=== PATIENT | male | born 1950 | race Caucasian/White ===

== ENCOUNTER 2019-10-09 09:16 | Emergency (ER) | payer MEDICARE, SELFPAY ==
[2019-10-09 09:21] VITALS: BP 144/95; PULSE 118; RESP 19; TEMP 37.2; O2SAT 97; BMI 33.5
--- NOTE | 2019-10-09 09:44 | EKG12_ITS ---
Test Reason : WEAKNESS Blood Pressure : / mmHG Vent. Rate : 108 BPM Atrial Rate : 108 BPM P-R Int : 174 ms QRS Dur : 096 ms QT Int : 332 ms P-R-T Axes : 052 040 053 degrees QTc Int : 444 ms Sinus tachycardia with Premature atrial complexes Otherwise normal ECG Confirmed by PRASHANTH JORGENSEN, PAULETTE ([id number]), auto mechanic MARÍA QUARLES ([id number]) on 10/11/2019 12:21:52 PM Referred By: AC Confirmed By:PAULETTE ALFORD MD
--- NOTE | 2019-10-09 09:45 | RAD_ITS ---
STUDY: X-RAY - RIGHT ANKLE REASON FOR EXAM: Male, 69 years old. FELL THIS AM. PAIN AND SWELLING TECHNIQUE: 3 view(s) of the ankle. COMPARISON: None. FINDINGS: There is bony osteopenia. There is degenerative change of the ankle. Normal medial and lateral malleoli. Normal tibiotalar articulation and ankle mortise. Normal visualized talus and calcaneus. The visualized subtalar, talonavicular, calcaneocuboid and tarsal articulations are normal. There are atherosclerotic calcifications. RAD/Ankle min 3 Views IMPRESSION: Degenerative change. No visualized acute fracture. No significant soft tissue edema. Electronically Signed: Orin Honeycutt MD at 10:53 EST Tel , Service support ,
[2019-10-09 09:56] LABS: Absolute Neutrophil Count 7.1 X10^3/uL (2.0-7.7); Basophil# 0.03 X10^3/uL; Basophil% 0.4 % (0-1); Hematocrit 39.3 % (40-54); Hemoglobin 13.2 g/dL (13.0-16.5); Lymphocyte % 2.5 % (19-41); Mean Corp Hgb Conc 33.6 g/dL (32-36); Mean Corpuscular Hgb 30.9 pg (27.0-32.0); Mean Platelet Vol. 10.7 fl (6.2-12.0); Monocyte# 0.47 X10^3/uL; NRBC Flagged by Analyzer 0 % (0-5); Neutrophil # 7.13 X10^3/uL (2.7-7.7); Neutrophil % 90.6 % (47-70); POSITIVE DIFFERENTIAL YES; POSITIVE MORPHOLOGY YES; Platelet Count 132 K/mm3 (150-450); RBC Distribution Width CV 12.3 % (11.6-14.6); RBC Distribution Width SD 41.1 fl (35.1-43.9); Red Blood Count 4.27 M/mm3 (4.6-6.2); White Blood Count 7.9 K/mm3 (4.4-11.0)
[2019-10-09 10:01] LABS: Differential Indicated SCAN CRITERIA MET
[2019-10-09 10:07] LABS: Anion Gap 7 (5-15); BUN 15 mg/dL (7-18); BUN/Creat Ratio 14.4 RATIO (10-20); CPK Total, Creatine Kinase 66 U/L (39-308); Calcium,Total 9.1 mg/dL (8.5-10.1); Chloride 99 mmol/L (98-107); Creatinine, Serum 1.04 mg/dL (0.70-1.30); EST Glomerular Filtration Rate 75 mL/min (>60); Est Glom Filt Rate - Afr Amer 90 mL/min (>60); Estimated Creatinine Clearance 63.03 ml/min; Glucose 101 mg/dL (74-106); Potassium 3.9 mmol/L (3.5-5.1); Sodium Level 133 mmol/L (136-145)
--- NOTE | 2019-10-09 10:27 | ED.VIS.GEN ---
History of Present Illness Chief Complaint: Weakness Informant: Patient, Family Narrative: Patient reports a recent history of increased weakness. He tried to get out of his chair last evening but was too weak, sliding off the edge of the chair onto the floor. He was calling for his but she was asleep and could not hear him. He laid on the floor all night. Lying at rest patient denies any pain. When trying to get up and move around he has slight pain to the right ankle. Patient does have a history of left rotator cuff tear and believes this is why he could not push himself up out of his chair. He also reports circulation problems in his legs with some weakness secondary to this. - Past Medical History (1) Bladder cancer Status: Resolved (2) Lung cancer Status: Acute (3) Rotator cuff tear Status: Chronic (4) Coronary artery disease Status: Chronic (5) COPD (chronic obstructive pulmonary disease) Status: Chronic Past Medical History - Allergies and Home Meds Allergies/Adverse Reactions: Allergies No Known Allergies Allergy (Verified 10/09/19 09:24) Primary Care Physician: Hasmukh Springer MD [Primary Care Provider] - Prior records reviewed: Yes Lives: Spouse/ Significant Other Smoking Status: Former smoker Review of Systems General: Denies: Chills, Fever Eyes: Denies: Visual changes - bilaterally ENT: Denies: Bilateral ear pain Cardiovascular: Denies: Chest pain, Palpitations Respiratory: Denies: Dyspnea, Cough Gastrointestinal: Denies: Abdominal pain, Nausea, Vomiting, Diarrhea Genitourinary: Denies: Dysuria Musculoskeletal: Reports: Extremity Pain Skin: Denies: Rash Neurological: Reports: Weakness - Generalized weakness. Denies: Headache Allergy: Denies: Uticaria Physical Exam Vital Signs/Narrative: Vital Signs Temp Pulse Resp BP Pulse Ox 10/09/19 09:21 99.0 F 118 H 19 H 144/95 H 97 Inital Vital Signs reviewed: Yes General: Well nourished, Well developed Head: Normocephalic ENT: Moist mucous membranes Neck: Supple Cardiovascular: Tachycardia Respiratory: No distress, CTA bilaterally Abdomen: Soft, Nontender Extremities: - - Mild tenderness to the right ankle. No obvious edema or deformity. Skin: - - Slight dark discoloration noted to the bilateral lower extremities secondary to his circulation problems. He does have palpable pulses distally. Neurological: Alert Psychological: Normal affect Diagnostic/Tx/Re-eval Impressions Ankle X-Ray 10/09/19 09:45 IMPRESSION: Degenerative change. No visualized acute fracture. No significant soft tissue edema. Electronically Signed: Orin Honeycutt MD at 10:53 EST Tel , Service support , 10/09/19 09:45 Ankle min 3 Views [RAD] Stat Laboratory Results 10/09/19 10/09/19 10/09/19 09:29 09:29 11:12 WBC 7.9 RBC 4.27 L Hgb 13.2 Hct 39.3 L MCV 92.0 MCH 30.9 MCHC 33.6 RDW Std Deviation 41.1 RDW Coeff of Ean 12.3 Plt Count 132 L MPV 10.7 Immature Gran % (Auto) 0.500 Neut % (Auto) 90.6 H Lymph % (Auto) 2.5 L [place] % (Auto) 6.0 Eos % (Auto) 0.0 Baso % (Auto) 0.4 Absolute Neuts (auto) 7.1 Absolute Lymphs (auto) 0.20 L Nucleated RBC % 0 Sodium 133 L Potassium 3.9 Chloride 99 Carbon Dioxide 27.0 Anion Gap 7 BUN 15 Creatinine 1.04 Estim Creat Clear Calc 63.03 Est GFR (MDRD) Af Amer 90 Est GFR (MDRD) Non-Af 75 BUN/Creatinine Ratio 14.4 Glucose 101 Calcium 9.1 Total Creatine Kinase 66 Urine Color Yellow Urine Clarity Sl. Cloudy Urine pH 7.0 Ur Specific [place] 1.010 Urine Protein Negative Urine Glucose (UA) Normal Urine Ketones Negative Urine Occult Blood 10 H Urine Nitrite Negative Urine Bilirubin Negative Urine Urobilinogen Normal Ur Leukocyte Esterase Negative Urine RBC 0 SEEN Urine WBC 5-10 SEEN Ur Squamous Epith Cells 0 SEEN Urine Bacteria 0 SEEN Urine Mucus 0 SEEN - EKG Initial EKG Interpretation: Sinus Tachycardia - Sinus tach at 108 with no acute ischemia. - Medical Decision Making Patient was given IV fluids here. There is no indication of renal failure or rhabdomyolysis. Test results are discussed with the patient. Patient does remain tachycardic but does now tell me that he normally takes Cardizem in the mornings and has not had his morning meds. He is given his normal 60 mg p.o. Cardizem. Patient is able to get up and ambulate with a walker. With ambulation he states he has pain between the knee and ankle. He states it feels like a sprain. Patient denies pain at rest and states he has had blood clots in his leg before and this does not feel anything like that. Oziel wrap will be applied to the knee and ankle. He does have a walker at home to use and feels comfortable with discharge. Patient return for worsening symptoms. ED Disposition - Plan for ED Patient: Disposition: Home or Assisted Living Diagnosis: Weakness, Ankle sprain Instructions: Sprain, Ankle, with X-Ray, WEAKNESS, Unk Cause Referrals: Hasmukh Springer MD [Primary Care Provider] - 3-5 Days if not improving
[2019-10-09 10:30] VITALS: BP 132/72; PULSE 113; RESP 18; O2SAT 97
[2019-10-09] MEDS: 0.9% Normal Saline 1,000 ML 150 ML IV (10:38)
[2019-10-09 11:17] LABS: Bacteria 0 SEEN /hpf (None Seen); Mucous, Urine 0 SEEN /hpf (<or=2+); Red Blood Cells-Urine 0 SEEN /hpf (0-5); Squamous Epithelial Cells - UA 0 SEEN /hpf (0-5)
[2019-10-09 11:22] LABS: Color, Urine Yellow (Yellow); Glucose, Dipstick Normal (Normal); Ketone-Dipstick Negative (Negative); Leukocyte Esterase-Dipstick Negative /ul (Negative); Nitrite-Dipstick Negative (Negative); Occult Blood-Urine 10 /ul (Negative); Protein-Dipstick Negative (Negative); Urine Bilirubin Dipstick Negative (Negative); Urine Clarity Sl. Cloudy (Clear); Urine Urobilinogen Normal (Normal)
[2019-10-09 11:28] LABS: White Blood Cells 5-10 SEEN /hpf (0-5)
[2019-10-09 11:36] VITALS: BP 132/80; PULSE 105; RESP 16; O2SAT 99
[2019-10-09 12:01] VITALS: BP 117/90; PULSE 115; RESP 17; O2SAT 98
[2019-10-09] MEDS: dilTIAZem 60 MG Tablet PO (12:02)
[2019-10-09 12:24] VITALS: BP 117/99; PULSE 110; RESP 18; O2SAT 98
== END 2019-10-09 12:25 | disposition home or self-care (01) ==
PROVIDERS: Emergency Provider Emergency Medicine; PCP Family Medicine
DX: R53.1 Weakness (principal); S93.401A Sprain of unspecified ligament of right ankle, initial encounter; W07.XXXA Fall from chair, initial encounter; Y93.9 Activity, unspecified; Y92.009 Unspecified place in unspecified non-institutional (private) residence as the place of occurrence of the external cause; Y99.9 Unspecified external cause status; I25.10 Atherosclerotic heart disease of native coronary artery without angina pectoris; I49.1 Atrial premature depolarization; J44.9 Chronic obstructive pulmonary disease, unspecified; M19.071 Primary osteoarthritis, right ankle and foot; Z85.118 Personal history of other malignant neoplasm of bronchus and lung; Z85.51 Personal history of malignant neoplasm of bladder; Z87.891 Personal history of nicotine dependence
CPT/HCPCS: 73610; 80048; 81001; 82550; 85025; 93005; 96360; 96361; 99285; J7030; A4216

== ENCOUNTER 2020-01-25 16:35 | Inpatient (IN) | payer MEDICARE, SELFPAY ==
[2020-01-25 16:53] VITALS: BP 132/68; PULSE 71; RESP 16; TEMP 36.2; O2SAT 100
[2020-01-25 17:10] VITALS: BMI 29.7
[2020-01-25 17:14] VITALS: BMI 29.8
[2020-01-25] MEDS: Senna/Docusate Sodium 1 Tablet 2 TABLET PO (18:35)
[2020-01-25] MEDS: Acetaminophen 500 MG Tablet 1000 MG PO (18:36)
[2020-01-25] MEDS: Magnesium Oxide 400 MG Tablet PO (18:36)
[2020-01-25 18:40] VITALS: O2SAT 97
--- NOTE | 2020-01-25 21:04 | HP.PCM_ITS ---
Problem List (1) Debility Status: Acute (2) Pancoast tumor of right lung Status: Acute (3) Pulmonary embolism Status: Acute (4) Deep vein thrombosis Status: Acute (5) Atrial fibrillation with rapid ventricular response Status: Acute (6) GERD (gastroesophageal reflux disease) Status: Chronic (7) Hyperlipidemia Status: Chronic (8) Peripheral arterial occlusive disease Status: Chronic (9) Alcohol abuse Status: Chronic (10) Tobacco abuse Status: Chronic (11) Leukopenia Status: Chronic (12) Hypertension Status: Chronic (13) Hyponatremia Status: Chronic (14) Supraventricular tachycardia Status: Chronic (15) Bladder cancer Status: Chronic (16) Coronary artery disease Status: Chronic (17) COPD (chronic obstructive pulmonary disease) Status: Chronic History of Present Illness Date of Admission: 01/25/20 Chief Complaint: Here for rehabilitation, strengthening, wound care, prior to discharge home with . The patient is a 69 year old Male with below past medical history with fo llowing: Chest X-ray showed 4.3CM right apical mass. CT, MRI chest showed apical tumor abutting T1, T2 regions. 09/21/2019 EBUs bronchoscopy confirmed adenocarcinoma right upper lung. Patient underwent induction chemotherapy, radiation therapy. Restaging CT scan showed right sided pulmonary embolism. 01/05/2020 IVC filter placed. 01/05/2020 Admit to [facility] [place] for lung cancer resection. 01/11/2020 Dr. 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 01/17/2020 Pleurodesis. 01/19/2020 Wound VAC applied due to dehiscence of right upper back right lateral chest incision. Pulmonary embolism/DVT treated with coumadin, Lovenox bridge. COPD treated with pulmonary toilet. Atrial fibrillation with rapid ventricular response converted with beta nayely, amiodarone. Infected cystic acne on back treated with Cefazolin IV x 4 days. Urinary retention resolved, Gurrola removed. 01/25/2020 Admit to TCU with debility, here for rehabilitation, strengthening, wound care, prior to discharge home with . Past Medical History Past Medical History (Chronic Problems): Chronic Problems Bladder cancer (Chronic) Rotator cuff tear (Chronic) Coronary artery disease (Chronic) COPD (chronic obstructive pulmonary disease) (Chronic) GERD (gastroesophageal reflux disease) (Chronic) Hyperlipidemia (Chronic) Peripheral arterial occlusive disease (Chronic) Alcohol abuse (Chronic) Tobacco abuse (Chronic) Leukopenia (Chronic) Hypertension (Chronic) Hyponatremia (Chronic) Supraventricular tachycardia (Chronic) Allergies No Known Allergies Allergy (Verified 10/09/19 09:24) Home Medications: Ambulatory Orders Medication Instructions Recorded Aspirin [Aspir 81] 162 mg PO DAILY 10/09/19 Cholecalciferol (Vitamin D3) 2,000 unit PO DAILY 10/09/19 [Vitamin D3] Cyanocobalamin [Vitamin B12] 500 mcg PO DAILY@0800 10/09/19 Diltiazem [Cardizem] 60 mg PO BID 10/09/19 Docusate Sodium [Colace] 200 mg PO BID 10/09/19 Fluticasone 110 Mcg [Flovent (SP)] 2 puff INHALATION BID 10/09/19 Folic Acid 0.4 mg PO DAILY@0800 10/09/19 Furosemide [Lasix] 20 mg PO DAILY 10/09/19 Omeprazole [Prilosec] 40 mg PO QODAY 10/09/19 Potassium 99 mg PO DAILY 10/09/19 Smz/Tmp Ds [Bactrim Ds] 1 tab PO DAILY 10/09/19 Tiotropium Irwin [Spiriva] 18 mcg IH DAILY 10/09/19 Surgical History: - - IVC filter, Studor pouch, Right thoracotomy. Psychiatric History: No pertinent psych hx Lives: Spouse/ Significant Other Smoking Status: Former smoker Tobacco Use: Non-smoker Alcohol: Sober Drugs: None - *Family History Maternal History Items: No pertinent history Paternal History Items: No pertinent history Review of Systems Constitutional: Denies: Chills, Fever, Weight Change HEENT: Denies: Head Aches, Sinus Congestion, Sinus Drainage Cardiovascular: Denies: Chest Pain, Palpitations Respiratory: Denies: Cough, Shortness of breath at rest, Sputum production Gastrointestinal: Denies: Abdominal Pain, Nausea, Vomiting Genitourinary: Denies: Dysuria Musculoskeletal: Denies: Joint Pain, Joint Tenderness Skin: Denies: Rash, Wounds Neurological: Denies: Numbness, Tingling, Focal weakness Psychiatric: Denies: Anxiety, Depression, Homicidal Ideations, Suicidal Ideations Hematologic/ Lymphatic: Denies: Easy Bruising, Easy Bleeding VTE Information - Inpt Only VTE Present on Admission: Yes VTE Mechan Device Prophylaxis: Knee High CELINE Hose VTE Pharm Prophylaxis ordered?: No Reason prophylaxis not ordered:: Treatment Not Indicated Patient Problems: Active and Suspected Problems Debility (Acute) Pancoast tumor of right lung (Acute) Pulmonary embolism (Acute) Deep vein thrombosis (Acute) Atrial fibrillation with rapid ventricular response (Acute) - Physical Exam Vitals/I&O's: Vital Signs Temp Pulse Resp BP Pulse Ox 97.1 F L 71 16 132/68 H 97 01/25/20 16:53 01/25/20 16:53 01/25/20 16:53 01/25/20 16:53 01/25/20 18:40 Oxygen Delivery Method Room Air Weight: 88.904 kg Body Mass Index (BMI) 29.7 Intake and Output for Last 24 Hours 01/23/20 01/24/20 01/25/20 23:59 23:59 23:59 Intake Total 120 / 120 Balance 120 / 120 General: Alert, Oriented x3, Cooperative HEENT: Atraumatic, PERRLA, EOMI, Normocephalic Neck: Supple, No JVD, Negative Carotid Bruits Lungs: Diminished - Right. Cardiovascular: Regular rate, No murmurs Abdomen: Bowel Sounds Present, Soft, Non Tender Extremities: No edema, Capillary Refill Less than 3 Seconds Skin: No rashes, - - Right upper back, right lateral chest wound VAC. Musculoskeletal: No Tenderness to Palpation of Joints or Extremities Neurological: Cranial nerves II-XII grossly intact Psych/Mental Status: Normal Affect, Appropriate Laboratory Results 01/25/20 18:35: COVID-19 (LEE ANN) Pending Current Medications Acetaminophen (Tylenol) 1,000 mg PO Q6H PRN PRN PRN Reason: Pain 1-1010 or Fever Last Admin: 01/25/20 18:36 Dose: 1,000 mg Documented by: Albuterol Sulfate (Ventolin Hfa (Sp)) 2 puff INHALATION Q4H PRN PRN PRN Reason: SOB &/OR WHEEZING Amiodarone HCl (Cordarone) 200 mg PO DAILY [facility] Aspirin (Ecotrin) 162 mg PO DAILY@0800 MARTIN Atorvastatin Calcium (Lipitor) 20 mg PO QHS [facility] Cholecalciferol (Vitamin D (25mcg)) 2,000 unit PO DAILY [facility]IN Cyanocobalamin (Vitamin B12) 500 mcg PO DAILY@0800 [facility] Diltiazem HCl (Cardizem) 60 mg PO BID [facility] Enoxaparin Sodium (Lovenox) 90 mg SC Q12@0600,1800 [facility] Fluticasone Propionate (Flovent Diskus 100 Mcg) 1 puff INHALATION BID [facility] Folic Acid (Folic Acid) 1 mg PO DAILY@0800 [facility] Furosemide (Lasix) 20 mg PO DAILY [facility] Lidocaine/Diphenhydr/Alum/Mg/Simeth () 5 ml PO Q4H PRN PRN PRN Reason: Pain Score 1-10/10 Magn[facility] ([facility]Ox 400) [facility] Last Admin: 01/25/20 18:36 Dose: 400 mg Documented by: Metoprolol Tartrate (Lopressor (Beta Nayely)) 37.5 mg PO Q8 [facility] Oxycodone HCl (Oxyir) 5 - 10 mg PO Q6H PRN PRN PRN Reason: Pain Score 6-10/10 Stop: 02/02/20 00:01 Pantoprazole Sodium (Protonix) 40 mg PO DAILY [facility] Senna/Docusate Sodium (Senokot-S, Anette-Colace) 2 tablet PO BID [facility] Last Admin: 01/25/20 18:35 Dose: 2 tablet Documented by: Thiamine HCl ([facility]itamin B1) [facility] Trimethoprim/Sulfamethoxazole (Bactrim Ds) 1 tablet PO DAILY@0800 [facility] Tuberculin PPD (Tubersol, Aplisol, Ppd) 5 tu ID [id number] ONE Stop: 01/26/20 10:01 Tuberculin PPD (Tubersol, Aplisol, Ppd) 5 tu ID [id number] ONE Stop: 02/02/20 10:01 Umeclidinium [place] (Incruse Ellipta Inhaler) 1 puff IH DAILY [facility] Assessment/Plan All Active Problems Lung cancer (Acute) Debility (Acute) Pancoast tumor of right lung (Acute) Pulmonary embolism (Acute) Deep vein thrombosis (Acute) Atrial fibrillation with rapid ventricular response (Acute) 69 year old male with below past medical history hospitalized for right apical pancoast tumor, underwent resection 01/11/2020, complicated by Pulmonary embolism/Deep Vein Thrombosis, atrial fibrillation with rapid ventricular response, infected cystic acne, admitted to TCU with debility, here for rehabilitation, strengthening, wound care, prior to discharge home with . * Debility - PT/OT. * Pain - Tylenol 1000MG Q6H PRN pain (1-3), Oxycodone 5MG Q4H PRN pain (4-10). * Bowel - Miralax 17GM daily, Senna/colace 2 tablets BID, Dulcolax 10MG daily PRN. Magnesium Citrate 300ML PO x 1 bottle for clean out. * Adult immunization - Administer Prevnar 13, Pneumovax 23, Fluzone as appropriate. * DVT prophylaxis - Not necessary, already anticoagulated. * COPD - Flovent 100MG 1 puff BID, Incruse 1 puff daily, Albuterol MDI 2 puffs Q4H PRN. * Atrial Fibrillation - Metoprolol 37.5MG Q8H, Diltiazem 60MG BID, Amiodarone 200MG daily, Lovenox/Warfarin. * Coronary Artery Disease - Metoprolol 37.5MG Q8H, Aspirin 162MG daily. * Hyperlipidemia - Atorvastatin 20MG QHS. * Sore throat - BMX 5ML Q4H PRN. * Vitamin D deficiency - D3 2000IU daily. * Vitamin B12 deficiency - B12 500MCG daily. * PE/DVT - Lovenox 90MG SC Q12H bridge, Warfarin 5MG daily, follow INR, stop Lovenox when INR therapeutic. * Alcohol abuse - Thiamine 100MG daily, Folic acid 1MG daily. * Edema - Lasix 20MG daily. * Hypomagnesemia - Magnesium Oxide 400MG BID. * GERD - Pantoprazole 40MG daily. * ID - Bactrim DS 1 tablet daily.
[2020-01-25] MEDS: Enoxaparin 100 MG/ML Syringe 90 MG SC (21:09)
[2020-01-25 21:10] VITALS: BP 125/66; PULSE 83
[2020-01-25] MEDS: Metoprolol Tartrate 25 MG Tablet 37.5 MG PO (21:10)
[2020-01-25] MEDS: Atorvastatin Calcium 20 MG Tablet PO (21:10)
[2020-01-26 05:51] LABS: Absolute Lymphocyte Count 0.47 X10^3/uL (0.83-4.51); Absolute Neutrophil Count 3.7 X10^3/uL (2.0-7.7); Basophil# 0.05 X10^3/uL; Eosinophil# 0.44 X10^3/uL; Eosinophils% 8.6 % (0-5); Hematocrit 28.5 % (40-54); Lymphocyte # 0.47 X10^3/ul (4.0); Lymphocyte % 9.2 % (19-41); Mean Corp Hgb Conc 31.6 g/dL (32-36); Mean Corpuscular Hgb 30.9 pg (27.0-32.0); Mean Corpuscular Volume 97.9 fL (80-94); Mean Platelet Vol. 10.4 fl (6.2-12.0); Monocyte% 7.8 % (0-10); NRBC Flagged by Analyzer 0 % (0-5); Neutrophil # 3.68 X10^3/uL (2.7-7.7); Neutrophil % 71.8 % (47-70); POSITIVE DIFFERENTIAL YES; Platelet Count 198 K/mm3 (150-450); RBC Distribution Width CV 15.7 % (11.6-14.6); RBC Distribution Width SD 55.8 fl (35.1-43.9); Red Blood Count 2.91 M/mm3 (4.6-6.2); White Blood Count 5.1 K/mm3 (4.4-11.0)
[2020-01-26 05:55] LABS: Differential Indicated SCAN CRITERIA MET
[2020-01-26 06:05] LABS: Anion Gap 8 (5-15); BUN 34 mg/dL (7-18); BUN/Creat Ratio 32.4 RATIO (10-20); Calcium,Total 8.2 mg/dL (8.5-10.1); Chloride 106 mmol/L (98-107); Creatinine, Serum 1.05 mg/dL (0.70-1.30); EST Glomerular Filtration Rate 74 mL/min (>60); Est Glom Filt Rate - Afr Amer 89 mL/min (>60); Estimated Creatinine Clearance 62.43 ml/min; Glucose 95 mg/dL (74-106); Potassium 3.9 mmol/L (3.5-5.1); Sodium Level 140 mmol/L (136-145)
[2020-01-26 06:42] VITALS: BP 129/61; PULSE 97; RESP 18; TEMP 36.8; O2SAT 95
[2020-01-26] MEDS: dilTIAZem 60 MG Tablet PO ×2 (06:46→18:27)
[2020-01-26] MEDS: Amiodarone 200 MG Tablet PO (06:46)
[2020-01-26 06:47] VITALS: BP 129/61; PULSE 97
[2020-01-26] MEDS: Senna/Docusate Sodium 1 Tablet 2 TABLET PO ×2 (06:47→18:27)
[2020-01-26] MEDS: Pantoprazole Sodium 40 MG Tablet PO (06:47)
[2020-01-26] MEDS: Metoprolol Tartrate 25 MG Tablet 37.5 MG PO ×3 (06:47→21:10)
[2020-01-26] MEDS: Furosemide 20 MG Tablet PO (06:48)
[2020-01-26] MEDS: Enoxaparin 100 MG/ML Syringe 90 MG SC ×2 (06:49→18:28)
[2020-01-26] MEDS: Magnesium Citrate 300 ML PO (06:50)
[2020-01-26] MEDS: Umeclidinium Bromide Inhaler 1 PUFF IH (07:00)
[2020-01-26] MEDS: Nystatin Powder 15gm Bottle 1 APPLIC TOPICAL ×2 (07:01→21:13)
[2020-01-26] MEDS: Thiamine Hydrochloride 100 MG Tablet PO (08:41)
[2020-01-26] MEDS: Smz/Tmp Ds Tablet 1 TABLET PO (08:41)
[2020-01-26] MEDS: Aspirin E.C. 81 MG Tablet 162 MG PO (08:41)
[2020-01-26] MEDS: Magnesium Oxide 400 MG Tablet PO ×2 (08:41→18:27)
[2020-01-26] MEDS: Cyanocobalamin 500 MCG Tablet PO (08:42)
[2020-01-26] MEDS: Folic Acid 1 MG Tablet PO (08:42)
[2020-01-26] MEDS: Tuberculin,Purif.prot.deriv. 50 TU/ML Vial 5 ML ID (10:57)
--- NOTE | 2020-01-26 11:59 | CASEMGMT ---
Addendum entered by Fiordaliza Bernal 01/26/20 12:11: Met with patient for initial assessment. Explained Palliative care due to qualifying dx. Pt agreeable to referral. Referral made to [facility]. Original Note: Social Work Discussed code status with pt. Pt chose full code. MOLST form completed and placed in chart. Fiordaliza Bernal, STENOGRAPHIC COURT REPORTER MOLD PRESS OPERATOR
[2020-01-26 13:52] VITALS: BP 129/61; PULSE 97
--- NOTE | 2020-01-26 13:59 | PHA.CONS_ITS ---
<Jennifer Cardoza - Last Filed: 01/26/20 13:59> Progress Note - Pharmacy Subjective: TCU Admission Objective: Allergies No Known Allergies Allergy (Verified 10/09/19 09:24) Current Medications Generic Name Dose Route Start Last Admin Trade Name Freq PRN Reason Stop Dose Admin Acetaminophen 1,000 mg 01/25/20 17:08 01/25/20 18:36 Tylenol PO 1,000 mg Q6H PRN PRN Administration Pain Score 1-3/10 Albuterol Sulfate 2 puff 01/25/20 17:13 Ventolin Hfa (Sp) INHALATION Q4H PRN PRN SOB &/OR WHEEZING Amiodarone HCl 200 mg 01/26/20 06:00 01/26/20 06:46 Cordarone PO 200 mg DAILY MARTIN Administration Aspirin 162 mg 01/26/20 08:00 01/26/20 08:41 Ecotrin PO 162 mg DAILY@0800 MARTIN Administration Atorvastatin Calcium 20 mg 01/25/20 22:00 01/25/20 21:10 Lipitor PO 20 mg QHS MARTIN Administration Bisacodyl 10 mg 01/25/20 21:34 Dulcolax PO DAILY PRN Constipation Cholecalciferol 2,000 unit 01/26/20 06:00 01/26/20 06:48 Vitamin D (25mcg) PO 2,000 unit DAILY MARTIN Administration Cyanocobalamin 500 mcg 01/26/20 08:00 01/26/20 08:42 Vitamin B12 PO 500 mcg DAILY@0800 MARTIN Administration Diltiazem HCl 60 mg 01/26/20 06:00 01/26/20 06:46 Cardizem PO 60 mg BID MARTIN Administration Enoxaparin Sodium 90 mg 01/25/20 18:00 01/26/20 06:49 Lovenox SC 90 mg Q12@0600,1800 MARTIN Administration Fluticasone Propionate 1 puff 01/26/20 06:00 01/26/20 06:46 Flovent Diskus 100 Mcg INHALATION 1 puff BID MARTIN Administration Folic Acid 1 mg 01/26/20 08:00 01/26/20 08:42 Folic Acid PO 1 mg DAILY@0800 MARTIN Administration Furosemide 20 mg 01/26/20 06:00 01/26/20 06:48 Lasix PO 20 mg DAILY MARTIN Administration Lidocaine/Diphenhydr/Alum/Mg/Simeth 5 ml 05/12/20 19:00 PO Q4H PRN PRN Pain Score 1-10/10 Magnesium Oxide 400 mg 01/26/20 08:00 01/26/20 08:41 [facility] Administration Metoprolol Tartrate 37.5 mg 01/25/20 22:00 01/26/20 13:52 Lopressor (Beta Nayely) PO 37.5 mg Q8 ON LICENSE OF [facility] Administration Multi-Ingredient Cream 1 applic 01/26/20 22:00 Eucerin TOPICAL HS ON LICENSE OF [facility] Protocol Nutritional Formula 1 packet 01/26/20 17:00 [place]av[place] - [place] Fl[facility] Nystatin 1 applic 01/26/20 06:00 01/26/20 07:01 Mycostatin Powder TOPICAL 1 applicatio 0600,2200 ON LICENSE OF [facility] Administration Protocol Oxycodone HCl 5 mg 01/25/20 21:45 Oxyir PO Q4H PRN PRN Pain Score 4-10/10 Pantoprazole Sodium 40 mg 01/26/20 06:00 01/26/20 06:47 Protonix PO 40 mg DAILY ON LICENSE OF [facility] Administration Polyethylene Glycol 17 gm 01/26/20 06:00 01/26/20 07:01 Miralax PO Not Given DAILY ON LICENSE OF [facility] Polysaccharide Iron Complex 150 mg 01/27/20 08:00 Ferrex 150 [facility] Senna/Docusate Sodium 2 tablet 01/25/20 18:00 01/26/20 06:47 Senokot-S, Anette-Colace PO 2 tablet BID ON LICENSE OF [facility] Administration Thiamine HCl 100 mg 01/26/20 08:00 01/26/20 08:41 [facility] Administration Trimethoprim/Sulfamethoxazole 1 tablet 01/26/20 08:00 01/26/20 08:41 Bactrim Ds PO 1 tablet DAILY@0800 ON LICENSE OF [facility] Administration Tuberculin PPD 5 tu 02/02/20 10:00 Tubersol, Aplisol, Ppd ID 02/02/20 10:01 X1 ONE Umeclidinium [place] 1 puff 01/26/20 06:00 01/26/20 07:00 Incruse Ellipta Inhaler IH 1 puff DAILY ON LICENSE OF [facility] Administration Problem List Debility (Acute) Pancoast tumor of right lung (Acute) Pulmonary embolism (Acute) Deep vein thrombosis (Acute) Atrial fibrillation with rapid ventricular response (Acute) GERD (gastroesophageal reflux disease) (Chronic) Hyperlipidemia (Chronic) Peripheral arterial occlusive disease (Chronic) Alcohol abuse (Chronic) Tobacco abuse (Chronic) Leukopenia (Chronic) Hypertension (Chronic) Hyponatremia (Chronic) Supraventricular tachycardia (Chronic) Vital Signs Temp Pulse Resp BP Pulse Ox 98.2 F 97 18 129/61 H 95 01/26/20 06:42 01/26/20 13:52 01/26/20 06:42 01/26/20 13:52 01/26/20 06:42 Oxygen Delivery Method Room Air Weight: 88.904 kg Body Mass Index (BMI) 29.7 Sodium 140 mmol/L (136-145) 01/26/20 05:35 Potassium 3.9 mmol/L (3.5-5.1) 01/26/20 05:35 Chloride 106 mmol/L (98-107) 01/26/20 05:35 Carbon Dioxide 26.0 mmol/L (21.0-32.0) 01/26/20 05:35 Anion Gap 8 (5-15) 01/26/20 05:35 BUN 34 mg/dL (7-18) H 01/26/20 05:35 Creatinine 1.05 mg/dL (0.70-1.30) 01/26/20 05:35 Est GFR (MDRD) Af Amer 89 mL/min (>60) 01/26/20 05:35 Est GFR (MDRD) Non-Af 74 mL/min (>60) 01/26/20 05:35 BUN/Creatinine Ratio 32.4 RATIO (10-20) H 01/26/20 05:35 Glucose 95 mg/dL (74-106) 01/26/20 05:35 Assessment/Plan: 1. Pain: acetaminophen 1000mg PO Q6H PRN pain 1-3/10 and oxycodone 5mg PO Q4H PRN pain 4-10/10. Please continue to monitor for increased pain and PRN usage. 2. COPD: albuterol inhaler 2 inhalations Q4H PRN SOB/Wheezing, fluticasone diskus 100mcg 1 inhalation BID, umeclidinium inhaler 1 inhalation daily. Please rinse mouth with water and spit out after use of fluticasone inhaler to prevent thrush. Please continue to monitor for SOB and/or wheezing. *3. Atrial fibrillation/PE/DVT/CAD: metoprolol tartrate 37.5mg PO Q8H, diltiazem 60mg PO BID, amiodarone 200mg PO daily, enoxaparin 90mg SC Q12H, aspirin 162mg PO DAILYCM. Please continue to monitor BP, HR, electrolytes, S/S of bleeding, and platelets. Warfarin is not ordered yet to begin bridge with enoxaparin described in physician note. Please consider ordering warfarin to begin bridge if clinically appropriate. Thanks. *4. Hyperlipidemia: atorvastatin 20mg PO QHS. No lipid panel in patient's chart. Please consider ordering a lipid panel now and then annually as clinically appropriate. Please continue to monitor for muscle pain. 5. Alcohol abuse: thiamine 100mg PO DAILYCM and folic acid 1mg PO DAILYCM. Please continue to monitor. 6. Edema: furosemide 20mg PO daily. Please continue to monitor electrolytes, renal function and edema. 7. GERD: pantoprazole 40mg PO daily. Please continue to monitor for S/S of GERD. 8. ID: sulfamethoxazole/trimethoprim DS 1T PO DAILYCM. Please continue to monitor renal function, potassium, S/S of infection and rash. 9. Sore throat: BMX solution 5mL PO Q4H PRN pain -06/24. Please continue to monitor for sore throat. 10. Anemia (hemoglobin 9.0): Ferrex 150mg PO DAILYCM. Please continue to monitor hemoglobin and for dark stools. *11. Vitamin/electrolyte deficiencies: cholecalciferol 2000units PO daily, cyanocobalamin 500mcg PO DAILYCM and magnesium oxide 400mg PO BIDCM. Patient does not have levels in the chart. Please consider ordering a Vitamin D level, a Vitamin B12 level and a magnesium level now and then annually as clinically appropriate. Thanks. Psychotropic Medications: None Unnecessary Medications: None Bowel Regimen: Miralax 17gm PO daily, senna/docusate 2T PO BID, bisacodyl 10mg PO daily PRN constipation. Please continue to monitor for constipation and PRN usage. Date of Note:: 01/26/20 - Provider Comments Provider responsibility: Provider responsible to enter orders to implement recommendations <Hernan Estrella Chi - Last Filed: 01/26/20 17:11> Progress Note - Pharmacy Subjective: [] Objective: Allergies No Known Allergies Allergy (Verified 10/09/19 09:24) Current Medications Generic Name Dose Route Start Last Admin Trade Name Freq PRN Reason Stop Dose Admin Acetaminophen 1,000 mg 01/25/20 17:08 01/25/20 18:36 Tylenol PO 1,000 mg Q6H PRN PRN Administration Pain Score 1-3/10 Albuterol Sulfate 2 puff 01/25/20 17:13 Ventolin Hfa (Sp) INHALATION Q4H PRN PRN SOB &/OR WHEEZING Amiodarone HCl 200 mg 01/26/20 06:00 01/26/20 06:46 Cordarone PO 200 mg DAILY MARTIN Administration Aspirin 162 mg 01/26/20 08:00 01/26/20 08:41 Ecotrin PO 162 mg DAILY@0800 ON LICENSE OF [facility] Administration Atorvastatin Calcium 20 mg 01/25/20 22:00 01/25/20 21:10 Lipitor PO 20 mg QHS MARTIN Administration Bisacodyl 10 mg 01/25/20 21:34 Dulcolax PO DAILY PRN Constipation Cholecalciferol 2,000 unit 01/26/20 06:00 01/26/20 06:48 Vitamin D (25mcg) PO 2,000 unit DAILY ON LICENSE OF [facility] Administration Cyanocobalamin 500 mcg 01/26/20 08:00 01/26/20 08:42 Vitamin B12 PO 500 mcg DAILY@0800 ON LICENSE OF [facility] Administration Diltiazem HCl 60 mg 01/26/20 06:00 01/26/20 06:46 Cardizem PO 60 mg BID MARTIN Administration Enoxaparin Sodium 90 mg 01/25/20 18:00 01/26/20 06:49 Lovenox SC 90 mg Q12@0600,1800 ON LICENSE OF [facility] Administration Fluticasone Propionate 1 puff 01/26/20 06:00 01/26/20 06:46 Flovent Diskus 100 Mcg INHALATION 1 puff BID MARTIN Administration Folic Acid 1 mg 01/26/20 08:00 01/26/20 08:42 Folic Acid PO 1 mg DAILY@0800 MARTIN Administration Furosemide 20 mg 01/26/20 06:00 01/26/20 06:48 Lasix PO 20 mg DAILY MARTIN Administration Lidocaine/Diphenhydr/Alum/Mg/Simeth 5 ml 01/25/20 19:00 PO Q4H PRN PRN Pain Score 1-10/10 Magnesium Oxide 400 mg 01/26/20 08:00 01/26/20 08:41 Mag-Ox 400 PO 400 mg BIDCM ON LICENSE OF [facility] Administration Metoprolol Tartrate 37.5 mg 01/25/20 22:00 01/26/20 13:52 Lopressor (Beta Nayely) PO 37.5 mg Q8 ON LICENSE OF [facility] Administration Multi-Ingredient Cream 1 applic 01/26/20 22:00 Eucerin TOPICAL HS ON LICENSE OF [facility] Protocol Nutritional Formula 1 packet 01/26/20 17:00 Donavon - [place] Flavor PO BIDCM ON LICENSE OF [facility] Nystatin 1 applic 01/26/20 06:00 01/26/20 07:01 Mycostatin Powder TOPICAL 1 applicatio 0600,2200 ON LICENSE OF [facility] Administration Protocol Oxycodone HCl 5 mg 01/25/20 21:45 Oxyir PO Q4H PRN PRN Pain Score 4-10/10 Pantoprazole Sodium 40 mg 01/26/20 06:00 01/26/20 06:47 Protonix PO 40 mg DAILY ON LICENSE OF [facility] Administration Polyethylene Glycol 17 gm 01/26/20 06:00 01/26/20 07:01 Miralax PO Not Given DAILY ON LICENSE OF [facility] Polysaccharide Iron Complex 150 mg 01/27/20 08:00 [facility]rex [facility] Senna/Docusate Sodium 2 tablet 01/25/20 18:00 01/26/20 06:47 Senokot-S, Anette-Colace PO 2 tablet BID ON LICENSE OF [facility] Administration Thiamine HCl 100 mg 01/26/20 08:00 01/26/20 08:41 Vitamin B1 [facility] Administration Trimethoprim/Sulfamethoxazole 1 tablet 01/26/20 08:00 01/26/20 08:41 Bactrim Ds PO 1 tablet DAILY@0800 ON LICENSE OF [facility] Administration Tuberculin PPD 5 tu 02/02/20 10:00 Tubersol, Aplisol, Ppd ID 02/02/20 10:01 X1 ONE Umeclidinium [place] 1 puff 01/26/20 06:00 01/26/20 07:00 Incruse Ellipta Inhaler IH 1 puff DAILY ON LICENSE OF [facility] Administration Problem List Debility (Acute) Pancoast tumor of right lung (Acute) Pulmonary embolism (Acute) Deep vein thrombosis (Acute) Atrial fibrillation with rapid ventricular response (Acute) GERD (gastroesophageal reflux disease) (Chronic) Hyperlipidemia (Chronic) Peripheral arterial occlusive disease (Chronic) Alcohol abuse (Chronic) Tobacco abuse (Chronic) Leukopenia (Chronic) Hypertension (Chronic) Hyponatremia (Chronic) Supraventricular tachycardia (Chronic) Vital Signs Temp Pulse Resp BP Pulse Ox 97.5 F L 83 16 99/54 L 95 01/26/20 14:09 01/26/20 14:09 01/26/20 14:09 01/26/20 14:09 01/26/20 14:09 Oxygen Delivery Method Room Air Weight: 88.904 kg Body Mass Index (BMI) 29.7 Sodium 140 mmol/L (136-145) 01/26/20 05:35 Potassium 3.9 mmol/L (3.5-5.1) 01/26/20 05:35 Chloride 106 mmol/L (98-107) 01/26/20 05:35 Carbon Dioxide 26.0 mmol/L (21.0-32.0) 01/26/20 05:35 Anion Gap 8 (5-15) 01/26/20 05:35 BUN 34 mg/dL (7-18) H 01/26/20 05:35 Creatinine 1.05 mg/dL (0.70-1.30) 01/26/20 05:35 Est GFR (MDRD) Af Amer 89 mL/min (>60) 01/26/20 05:35 Est GFR (MDRD) Non-Af 74 mL/min (>60) 01/26/20 05:35 BUN/Creatinine Ratio 32.4 RATIO (10-20) H 01/26/20 05:35 Glucose 95 mg/dL (74-106) 01/26/20 05:35 Assessment/Plan: Psychotropic Medications: Unnecessary Medications: Bowel Regimen: - Provider Comments Provider responsibility: Provider responsible to enter orders to implement recommendations Provider Comments to Recommendations by Pharmacy: Agree
[2020-01-26 14:09] VITALS: BP 99/54; PULSE 83; RESP 16; TEMP 36.4; O2SAT 95
--- NOTE | 2020-01-26 17:01 | CHAPLAIN ---
Type of Pastoral Visit _x__ Initial Visit ___ Follow-up Visit ___ On-call Visit ___ General Patient Visit ___ Spiritual Assessment ___ Family Conference ___ Bereavement ___ Rapid Response ___ Code Blue ___ Other (describe below) Pastoral Care Referral From _x__ Patient ___ Family ___ Nurse ___ Physician ___ Inside Sales Specialist ___ Olive Picker ___ Other (describe below) Sacrament/Intervention _x__ Active listening ___ Anointing ___ Lutheran ___ Bereavement ___ Communion ___ Heather exploration ___ _x__ Life review _x__ Prayer ___ Reconciliation ___ Sacrament of Sick _x__ Supportive presence ___ Wedding ___ Other (describe below) Pastoral Comments patient is open to further visits with this bellstaff
[2020-01-26 20:30] VITALS: O2SAT 98
[2020-01-26] MEDS: Atorvastatin Calcium 20 MG Tablet PO (21:09)
[2020-01-26 21:10] VITALS: BP 110/56; PULSE 86
[2020-01-27] MEDS: oxyCODONE 5 MG Tablet PO (03:14)
[2020-01-27] MEDS: Umeclidinium Bromide Inhaler 1 PUFF IH (04:52)
[2020-01-27 04:53] VITALS: BP 116/60; PULSE 89
[2020-01-27] MEDS: Pantoprazole Sodium 40 MG Tablet PO (04:53)
[2020-01-27] MEDS: Senna/Docusate Sodium 1 Tablet 2 TABLET PO ×2 (04:53→17:21)
[2020-01-27] MEDS: Polyethylene Glycol 3350 17 GM PACKET PO (04:53)
[2020-01-27] MEDS: Enoxaparin 100 MG/ML Syringe 90 MG SC ×2 (04:53→17:21)
[2020-01-27] MEDS: Metoprolol Tartrate 25 MG Tablet 37.5 MG PO ×3 (04:53→22:18)
[2020-01-27] MEDS: dilTIAZem 60 MG Tablet PO ×2 (04:54→17:21)
[2020-01-27] MEDS: Amiodarone 200 MG Tablet PO (04:54)
[2020-01-27] MEDS: Furosemide 20 MG Tablet PO (04:54)
[2020-01-27] MEDS: Nystatin Powder 15gm Bottle 1 APPLIC TOPICAL ×2 (04:58→22:21)
[2020-01-27 04:59] VITALS: RESP 19; TEMP 36.6; O2SAT 97
[2020-01-27 06:04] LABS: Absolute Lymphocyte Count 0.44 X10^3/uL (0.83-4.51); Absolute Neutrophil Count 5.4 X10^3/uL (2.0-7.7); Basophil# 0.04 X10^3/uL; Basophil% 0.6 % (0-1); Eosinophil# 0.15 X10^3/uL; Eosinophils% 2.2 % (0-5); Hematocrit 27.1 % (40-54); Hemoglobin 8.4 g/dL (13.0-16.5); Lymphocyte # 0.44 X10^3/ul (4.0); Lymphocyte % 6.6 % (19-41); Mean Corpuscular Hgb 30.5 pg (27.0-32.0); Mean Corpuscular Volume 98.5 fL (80-94); Mean Platelet Vol. 10.4 fl (6.2-12.0); Monocyte# 0.67 X10^3/uL; NRBC Flagged by Analyzer 0 % (0-5); Neutrophil # 5.35 X10^3/uL (2.7-7.7); Neutrophil % 79.9 % (47-70); POSITIVE DIFFERENTIAL YES; Platelet Count 197 K/mm3 (150-450); RBC Distribution Width SD 57.7 fl (35.1-43.9); Red Blood Count 2.75 M/mm3 (4.6-6.2); White Blood Count 6.7 K/mm3 (4.4-11.0)
[2020-01-27 06:10] LABS: Differential Indicated SCAN CRITERIA MET
[2020-01-27 06:29] LABS: Anion Gap 7 (5-15); BUN 35 mg/dL (7-18); BUN/Creat Ratio 33.3 RATIO (10-20); Calcium,Total 8.3 mg/dL (8.5-10.1); Chloride 106 mmol/L (98-107); Creatinine, Serum 1.05 mg/dL (0.70-1.30); EST Glomerular Filtration Rate 74 mL/min (>60); Est Glom Filt Rate - Afr Amer 89 mL/min (>60); Estimated Creatinine Clearance 62.43 ml/min; Glucose 97 mg/dL (74-106); Potassium 3.8 mmol/L (3.5-5.1); Sodium Level 139 mmol/L (136-145)
[2020-01-27 07:10] LABS: Anisocytosis RARE; Atypical Lymphocyte RARE %; Differential Comment SCANNED
[2020-01-27 07:11] LABS: Stomatocyte RARE
[2020-01-27] MEDS: Thiamine Hydrochloride 100 MG Tablet PO (08:18)
[2020-01-27] MEDS: Magnesium Oxide 400 MG Tablet PO ×2 (08:18→17:20)
[2020-01-27] MEDS: Iron Polysaccharide Complex 150 MG CAPSULE PO (08:18)
[2020-01-27] MEDS: Cyanocobalamin 500 MCG Tablet PO (08:18)
[2020-01-27] MEDS: Aspirin E.C. 81 MG Tablet 162 MG PO (08:19)
[2020-01-27] MEDS: Smz/Tmp Ds Tablet 1 TABLET PO (08:19)
[2020-01-27] MEDS: Folic Acid 1 MG Tablet PO (08:19)
--- NOTE | 2020-01-27 11:17 | NURSING ---
Spoke with patient's daughter, she stated his appointment was changed to 02/02/20
--- NOTE | 2020-01-27 11:30 | NURSING ---
Spoke with patient's spouse, she stated that she is going to contact Dr. Chino to reschedule his appointment for tomorrow. Also provided daily updated on patient.
--- NOTE | 2020-01-27 13:44 | NURSING ---
called to say the appointment with Dr. Chino is scheduled for 02/01
[2020-01-27 14:32] VITALS: PULSE 92
[2020-01-27] MEDS: Acetaminophen 500 MG Tablet 1000 MG PO (14:35)
[2020-01-27 15:36] VITALS: BP 105/50; PULSE 82; RESP 17; TEMP 37.1; O2SAT 97
--- NOTE | 2020-01-27 17:12 | NURSING ---
Unable to get seal on Prevena wound vac. Called technical support and they said it is not a broken maching. I tried reinforcing dressing, checking tubing and cannister. Wound vac dressing removed at this time and ABD's in place to cover incision and tristan. Minimal drainage noted to wound vac dressing and no active draiange noted. Will consult wound RN tomorrow as I could not reach her today.
--- NOTE | 2020-01-27 17:56 | RAD_ITS ---
STUDY: X-RAY CHEST REASON FOR EXAM: Male, 69 years old. Shortness of breath. History of right upper lobectomy with tumor resection. TECHNIQUE: PA and lateral views of the chest. COMPARISON: None. FINDINGS: There is air in the soft tissues of the right neck. There are surgical clips extending from the right neck along the posterior chest of the lateral chest wall. There is hypoexpansion of the right lung with elevated hemidiaphragm consistent with partial lobectomy. There is atelectatic changes at the right lung base. No pneumothorax The left lung is hyperexpanded but otherwise unremarkable. There is no demonstrated pleural abnormality. Normal size heart. Normal mediastinum and jomar. Normal visualized pulmonary arteries. There is atherosclerotic calcification of the aortic arch with tortuosity. There is demineralization of the osseous structures. There is degenerative osteoarthritis of the bilateral shoulders. There is no demonstrated abnormality of the visualized soft tissue structures of the upper abdomen. RAD/Chest PA and Lateral IMPRESSION: Surgical changes on the right chest wall with hypoexpansion right lung and right basilar atelectasis. Electronically Signed: Hal Fontana DO at 19:35 EDT Tel [phone], Service support ,
--- NOTE | 2020-01-27 17:56 | RAD_ITS ---
STUDY: X-RAY - ABDOMEN/PELVIS REASON FOR EXAM: Male, 69 years old. Constipation. TECHNIQUE: Two AP supine views of the abdomen and pelvis. COMPARISON: Chest, January 27, 2020. FINDINGS: Is elevation of right hemidiaphragm with surgical scars in the soft tissues along the right lower chest. The lung bases appear clear. There is an unremarkable bowel gas pattern. There is no demonstrated free abdominal air. The visualized liver, spleen and kidneys are grossly normal in size and morphology. Status post cholecystectomy. There are surgical sutures along the right aspect of the lower abdomen. There are multiple surgical clips along the pelvic sidewalls. There is atherosclerotic changes of the abdominal aorta and iliac arteries with an IVC filter lying along the right lateral aspect of L3-4. There are diffuse degenerative changes of the visualized lumbar spine. RAD/Abdomen Single View IMPRESSION: 1. No evidence of acute intra-abdominal process. There is no marked feces to suggest constipation. 2. Surgical changes of the right lower chest and right upper abdomen. 3. Status post cholecystectomy and pelvic dissection. 4. Atherosclerotic changes of the aorta and iliac arteries Electronically Signed: Hal Fontana DO at 19:26 EDT Tel [phone], Service support ,
[2020-01-27 18:13] LABS: Bacteria 0 SEEN /hpf (None Seen); Mucous, Urine 0 SEEN /hpf (<or=2+); Red Blood Cells-Urine 0 SEEN /hpf (0-5)
[2020-01-27 18:16] LABS: Color, Urine Yellow (Yellow); Glucose, Dipstick Normal (Normal); Ketone-Dipstick Negative (Negative); Leukocyte Esterase-Dipstick 25 /ul (Negative); Nitrite-Dipstick Negative (Negative); Occult Blood-Urine 10 /ul (Negative); Protein-Dipstick 15 mg/dl (Negative); Urine Bilirubin Dipstick Negative (Negative); Urine Clarity Sl. Cloudy (Clear); Urine Urobilinogen Normal (Normal)
[2020-01-27 18:26] LABS: Absolute Lymphocyte Count 0.62 X10^3/uL (0.83-4.51); Basophil# 0.02 X10^3/uL; Basophil% 0.2 % (0-1); Eosinophil# 0.22 X10^3/uL; Eosinophils% 2.5 % (0-5); Hematocrit 29.2 % (40-54); Hemoglobin 9.2 g/dL (13.0-16.5); Lymphocyte # 0.62 X10^3/ul (4.0); Lymphocyte % 7.1 % (19-41); Mean Corp Hgb Conc 31.5 g/dL (32-36); Mean Corpuscular Hgb 31.4 pg (27.0-32.0); Mean Corpuscular Volume 99.7 fL (80-94); Mean Platelet Vol. 10.5 fl (6.2-12.0); Monocyte# 0.79 X10^3/uL; Monocyte% 9.1 % (0-10); NRBC Flagged by Analyzer 0 % (0-5); Neutrophil # 6.97 X10^3/uL (2.7-7.7); Neutrophil % 80.2 % (47-70); Platelet Count 203 K/mm3 (150-450); RBC Distribution Width CV 15.9 % (11.6-14.6); RBC Distribution Width SD 57.9 fl (35.1-43.9); Red Blood Count 2.93 M/mm3 (4.6-6.2); White Blood Count 8.7 K/mm3 (4.4-11.0)
[2020-01-27 18:44] LABS: Squamous Epithelial Cells - UA 0-5 SEEN /hpf (0-5); White Blood Cells 5-10 SEEN /hpf (0-5)
[2020-01-27 22:18] VITALS: BP 130/62; PULSE 81
[2020-01-27] MEDS: Atorvastatin Calcium 20 MG Tablet PO (22:18)
[2020-01-28 04:10] VITALS: BP 119/62; PULSE 79; RESP 18; TEMP 37; O2SAT 95
[2020-01-28] MEDS: Umeclidinium Bromide Inhaler 1 PUFF IH (04:12)
[2020-01-28 04:13] VITALS: BP 119/62; PULSE 79
[2020-01-28] MEDS: oxyCODONE 5 MG Tablet PO (04:13)
[2020-01-28] MEDS: Metoprolol Tartrate 25 MG Tablet 37.5 MG PO ×3 (04:13→21:18)
[2020-01-28] MEDS: Enoxaparin 100 MG/ML Syringe 90 MG SC ×2 (04:13→17:37)
[2020-01-28] MEDS: dilTIAZem 60 MG Tablet PO ×2 (04:14→17:34)
[2020-01-28] MEDS: Nystatin Powder 15gm Bottle 1 APPLIC TOPICAL ×2 (04:14→21:19)
[2020-01-28] MEDS: Amiodarone 200 MG Tablet PO (04:14)
[2020-01-28] MEDS: Furosemide 20 MG Tablet PO (04:14)
[2020-01-28] MEDS: Senna/Docusate Sodium 1 Tablet 2 TABLET PO ×2 (04:15→17:34)
[2020-01-28] MEDS: Pantoprazole Sodium 40 MG Tablet PO (04:18)
[2020-01-28 06:02] LABS: Absolute Lymphocyte Count 0.48 X10^3/uL (0.83-4.51); Absolute Neutrophil Count 4.8 X10^3/uL (2.0-7.7); Basophil# 0.01 X10^3/uL; Basophil% 0.2 % (0-1); Differential Indicated SCAN CRITERIA MET; Eosinophil# 0.18 X10^3/uL; Eosinophils% 2.9 % (0-5); Hematocrit 25.9 % (40-54); Lymphocyte # 0.48 X10^3/ul (4.0); Lymphocyte % 7.8 % (19-41); Mean Corp Hgb Conc 30.9 g/dL (32-36); Mean Corpuscular Hgb 30.3 pg (27.0-32.0); Mean Corpuscular Volume 98.1 fL (80-94); Mean Platelet Vol. 10.2 fl (6.2-12.0); Monocyte# 0.57 X10^3/uL; Monocyte% 9.3 % (0-10); NRBC Flagged by Analyzer 0 % (0-5); Neutrophil # 4.84 X10^3/uL (2.7-7.7); Neutrophil % 79.1 % (47-70); POSITIVE DIFFERENTIAL YES; Platelet Count 189 K/mm3 (150-450); RBC Distribution Width CV 15.6 % (11.6-14.6); RBC Distribution Width SD 55.9 fl (35.1-43.9); Red Blood Count 2.64 M/mm3 (4.6-6.2); White Blood Count 6.1 K/mm3 (4.4-11.0)
[2020-01-28 06:23] LABS: Atypical Lymphocyte RARE %; Differential Comment SCANNED
[2020-01-28] MEDS: Aspirin E.C. 81 MG Tablet 162 MG PO (08:27)
[2020-01-28] MEDS: Iron Polysaccharide Complex 150 MG CAPSULE PO (08:28)
[2020-01-28] MEDS: Smz/Tmp Ds Tablet 1 TABLET PO (08:28)
[2020-01-28] MEDS: Thiamine Hydrochloride 100 MG Tablet PO (08:29)
[2020-01-28] MEDS: Cyanocobalamin 500 MCG Tablet PO (08:29)
[2020-01-28] MEDS: Folic Acid 1 MG Tablet PO (08:29)
[2020-01-28] MEDS: Magnesium Oxide 400 MG Tablet PO ×2 (08:30→17:36)
[2020-01-28 09:00] LABS: Anion Gap 6 (5-15); BUN 37 mg/dL (7-18); BUN/Creat Ratio 41.2 RATIO (10-20); Calcium,Total 8.2 mg/dL (8.5-10.1); Chloride 108 mmol/L (98-107); EST Glomerular Filtration Rate 88 mL/min (>60); Est Glom Filt Rate - Afr Amer 107 mL/min (>60); Estimated Creatinine Clearance 72.83 ml/min; Glucose 86 mg/dL (74-106); Potassium 3.7 mmol/L (3.5-5.1); Sodium Level 139 mmol/L (136-145)
--- NOTE | 2020-01-28 11:25 | NURSING ---
Spoke with Izzy at Dr. Chino's office who was involved in the patients surgery. Explained that the wound vac was removed yesterday evening after an unsuccessful attempt to stop leaks in the wound vac. Dry sterile dressing was applied. Izzy is going to speak with Dr. Chino and Dr. Acuña if needed and call us with an update.
--- NOTE | 2020-01-28 12:02 | NURSING ---
Izzy from Dr. Chino's office called back saying that DSD to incision is fine and requested pictures and Xray results to be sent to them.
[2020-01-28 14:01] VITALS: PULSE 85
[2020-01-28 15:48] VITALS: BP 113/53; PULSE 84; RESP 14; TEMP 36.6; O2SAT 95
--- NOTE | 2020-01-28 18:59 | NURSING ---
Family provided update
[2020-01-28 21:18] VITALS: BP 116/59; PULSE 89
[2020-01-28] MEDS: Atorvastatin Calcium 20 MG Tablet PO (21:18)
[2020-01-28 21:21] VITALS: O2SAT 98
[2020-01-29] MEDS: Amiodarone 200 MG Tablet PO (06:06)
[2020-01-29] MEDS: Polyethylene Glycol 3350 17 GM PACKET PO (06:06)
[2020-01-29] MEDS: Enoxaparin 100 MG/ML Syringe 90 MG SC ×2 (06:06→17:16)
[2020-01-29 06:07] VITALS: BP 119/62; PULSE 96
[2020-01-29] MEDS: Metoprolol Tartrate 25 MG Tablet 37.5 MG PO ×3 (06:07→21:30)
[2020-01-29] MEDS: Senna/Docusate Sodium 1 Tablet 2 TABLET PO ×2 (06:07→17:16)
[2020-01-29] MEDS: Pantoprazole Sodium 40 MG Tablet PO (06:07)
[2020-01-29] MEDS: Furosemide 20 MG Tablet PO (06:07)
[2020-01-29] MEDS: dilTIAZem 60 MG Tablet PO ×2 (06:07→17:16)
[2020-01-29] MEDS: Umeclidinium Bromide Inhaler 1 PUFF IH (06:08)
[2020-01-29] MEDS: Bisacodyl 5 MG Tablet 10 MG PO (06:14)
[2020-01-29] MEDS: Nystatin Powder 15gm Bottle 1 APPLIC TOPICAL ×2 (06:21→21:31)
[2020-01-29 06:23] VITALS: RESP 19; TEMP 37; O2SAT 94
[2020-01-29 06:57] LABS: Absolute Lymphocyte Count 0.48 X10^3/uL (0.83-4.51); Absolute Neutrophil Count 4.1 X10^3/uL (2.0-7.7); Basophil# 0.02 X10^3/uL; Basophil% 0.4 % (0-1); Eosinophil# 0.12 X10^3/uL; Eosinophils% 2.3 % (0-5); Hematocrit 28.4 % (40-54); Hemoglobin 8.8 g/dL (13.0-16.5); Lymphocyte # 0.48 X10^3/ul (4.0); Lymphocyte % 9.1 % (19-41); Mean Corpuscular Hgb 30.7 pg (27.0-32.0); Mean Platelet Vol. 10.1 fl (6.2-12.0); Monocyte# 0.53 X10^3/uL; NRBC Flagged by Analyzer 0 % (0-5); Neutrophil % 77.6 % (47-70); POSITIVE DIFFERENTIAL YES; Platelet Count 204 K/mm3 (150-450); RBC Distribution Width CV 15.4 % (11.6-14.6); Red Blood Count 2.87 M/mm3 (4.6-6.2); White Blood Count 5.3 K/mm3 (4.4-11.0)
[2020-01-29 07:15] LABS: Anion Gap 4 (5-15); BUN 31 mg/dL (7-18); BUN/Creat Ratio 35.6 RATIO (10-20); Calcium,Total 8.5 mg/dL (8.5-10.1); Chloride 108 mmol/L (98-107); Creatinine, Serum 0.87 mg/dL (0.70-1.30); EST Glomerular Filtration Rate 92 mL/min (>60); Est Glom Filt Rate - Afr Amer 111 mL/min (>60); Estimated Creatinine Clearance 75.34 ml/min; Glucose 100 mg/dL (74-106); Potassium 3.6 mmol/L (3.5-5.1); Sodium Level 141 mmol/L (136-145)
[2020-01-29 07:34] LABS: Differential Indicated SCAN CRITERIA MET
[2020-01-29 07:38] LABS: Differential Comment SCANNED
[2020-01-29] MEDS: Thiamine Hydrochloride 100 MG Tablet PO (08:56)
[2020-01-29] MEDS: Smz/Tmp Ds Tablet 1 TABLET PO (08:56)
[2020-01-29] MEDS: Magnesium Oxide 400 MG Tablet PO ×2 (08:56→17:16)
[2020-01-29] MEDS: Cyanocobalamin 500 MCG Tablet PO (08:56)
[2020-01-29] MEDS: Iron Polysaccharide Complex 150 MG CAPSULE PO (08:56)
[2020-01-29] MEDS: Folic Acid 1 MG Tablet PO (08:56)
[2020-01-29] MEDS: Acetaminophen 500 MG Tablet 1000 MG PO (11:24)
[2020-01-29 13:21] VITALS: PULSE 91
--- NOTE | 2020-01-29 15:56 | NURSING ---
label pinker reported that pt very confused on phone when talking to last evening. Pt told he saw her staring at him in his room from window. Dr Estrella updated, no confusion today. possible owner?
[2020-01-29 16:50] VITALS: BP 132/61; PULSE 77; RESP 16; TEMP 36.8; O2SAT 97
[2020-01-29 21:30] VITALS: BP 118/58; PULSE 89
[2020-01-29] MEDS: Atorvastatin Calcium 20 MG Tablet PO (21:30)
[2020-01-30] MEDS: Umeclidinium Bromide Inhaler 1 PUFF IH (05:38)
[2020-01-30 05:40] VITALS: BP 135/60; PULSE 88
[2020-01-30] MEDS: Furosemide 20 MG Tablet PO (05:40)
[2020-01-30] MEDS: Amiodarone 200 MG Tablet PO (05:40)
[2020-01-30] MEDS: Enoxaparin 100 MG/ML Syringe 90 MG SC ×2 (05:40→16:56)
[2020-01-30] MEDS: dilTIAZem 60 MG Tablet PO ×2 (05:40→16:56)
[2020-01-30] MEDS: Pantoprazole Sodium 40 MG Tablet PO (05:40)
[2020-01-30] MEDS: Metoprolol Tartrate 25 MG Tablet 37.5 MG PO ×3 (05:40→20:20)
[2020-01-30] MEDS: Senna/Docusate Sodium 1 Tablet 2 TABLET PO ×2 (05:40→16:56)
[2020-01-30] MEDS: Nystatin Powder 15gm Bottle 1 APPLIC TOPICAL ×2 (05:41→20:20)
[2020-01-30] MEDS: Acetaminophen 500 MG Tablet 1000 MG PO (05:44)
[2020-01-30 05:54] VITALS: RESP 18; TEMP 37.1; O2SAT 93
[2020-01-30] MEDS: Cyanocobalamin 500 MCG Tablet PO (09:14)
[2020-01-30] MEDS: Thiamine Hydrochloride 100 MG Tablet PO (09:14)
[2020-01-30] MEDS: Magnesium Oxide 400 MG Tablet PO ×2 (09:14→16:56)
[2020-01-30] MEDS: Smz/Tmp Ds Tablet 1 TABLET PO (09:14)
[2020-01-30] MEDS: Iron Polysaccharide Complex 150 MG CAPSULE PO (09:15)
[2020-01-30] MEDS: Folic Acid 1 MG Tablet PO (09:16)
[2020-01-30 14:55] VITALS: BP 111/63; PULSE 85
[2020-01-30 15:28] VITALS: BP 111/63; PULSE 85; RESP 20; TEMP 37.4; O2SAT 93
[2020-01-30 17:11] VITALS: TEMP 37.2
[2020-01-30 20:20] VITALS: BP 107/63; PULSE 89
[2020-01-30] MEDS: Atorvastatin Calcium 20 MG Tablet PO (20:20)
[2020-01-31 05:17] VITALS: BP 130/55; PULSE 86
[2020-01-31] MEDS: Umeclidinium Bromide Inhaler 1 PUFF IH (05:17)
[2020-01-31] MEDS: Metoprolol Tartrate 25 MG Tablet 37.5 MG PO ×3 (05:17→21:00)
[2020-01-31] MEDS: Senna/Docusate Sodium 1 Tablet 2 TABLET PO ×2 (05:18→17:00)
[2020-01-31] MEDS: Amiodarone 200 MG Tablet PO (05:18)
[2020-01-31] MEDS: Pantoprazole Sodium 40 MG Tablet PO (05:18)
[2020-01-31] MEDS: Polyethylene Glycol 3350 17 GM PACKET PO (05:18)
[2020-01-31] MEDS: Enoxaparin 100 MG/ML Syringe 90 MG SC ×2 (05:18→16:59)
[2020-01-31] MEDS: dilTIAZem 60 MG Tablet PO ×2 (05:18→16:59)
[2020-01-31] MEDS: Furosemide 20 MG Tablet PO (05:18)
[2020-01-31] MEDS: Nystatin Powder 15gm Bottle 1 APPLIC TOPICAL ×2 (05:19→21:05)
[2020-01-31 05:28] VITALS: RESP 19; TEMP 36.9; O2SAT 92
[2020-01-31] MEDS: Folic Acid 1 MG Tablet PO (07:51)
[2020-01-31] MEDS: Smz/Tmp Ds Tablet 1 TABLET PO (07:51)
[2020-01-31] MEDS: Thiamine Hydrochloride 100 MG Tablet PO (07:51)
[2020-01-31] MEDS: Cyanocobalamin 500 MCG Tablet PO (07:51)
[2020-01-31] MEDS: Magnesium Oxide 400 MG Tablet PO ×2 (07:51→17:01)
[2020-01-31] MEDS: Iron Polysaccharide Complex 150 MG CAPSULE PO (07:51)
[2020-01-31 11:05] VITALS: PULSE 80
--- NOTE | 2020-01-31 12:32 | NURSING ---
wound photo: right lower back (old drain site)
--- NOTE | 2020-01-31 12:34 | NURSING ---
wound photo: right mid to upper back
[2020-01-31 13:37] VITALS: PULSE 89
--- NOTE | 2020-01-31 14:14 | NURSING ---
Spoke with Izzy in Dr. Chino's office. Faxed pictures of surgical incision and chest Xray per the doctor's request.
--- NOTE | 2020-01-31 15:28 | NURSING ---
Updated Kira, states he sleeps in the recliner at home, and at times has the TV on at home. He does not sleep well at home.Assured her that Dr. Estrella was aware he is not sleeping at night and has ordered melatonin.
[2020-01-31 16:00] VITALS: BP 130/60; PULSE 86; RESP 16; TEMP 37.1; O2SAT 95
[2020-01-31 21:00] VITALS: BP 118/52; PULSE 83
[2020-01-31] MEDS: Atorvastatin Calcium 20 MG Tablet PO (21:00)
[2020-01-31] MEDS: MELATONIN 10 MG TABLET PO (21:01)
[2020-01-31] MEDS: Mirtazapine 15 MG Tablet 7.5 MG PO (21:02)
[2020-02-01 06:09] VITALS: BP 118/61; PULSE 87; RESP 18; TEMP 37.1; O2SAT 93
[2020-02-01] MEDS: Bisacodyl 5 MG Tablet 10 MG PO (06:13)
[2020-02-01] MEDS: Enoxaparin 100 MG/ML Syringe 90 MG SC ×2 (06:14→17:14)
[2020-02-01] MEDS: Umeclidinium Bromide Inhaler 1 PUFF IH (06:15)
[2020-02-01 06:16] VITALS: BP 118/61; PULSE 87
[2020-02-01] MEDS: Metoprolol Tartrate 25 MG Tablet 37.5 MG PO ×3 (06:16→20:52)
[2020-02-01] MEDS: Amiodarone 200 MG Tablet PO (06:16)
[2020-02-01] MEDS: dilTIAZem 60 MG Tablet PO ×2 (06:16→17:14)
[2020-02-01] MEDS: Furosemide 20 MG Tablet PO (06:17)
[2020-02-01] MEDS: Polyethylene Glycol 3350 17 GM PACKET PO (06:17)
[2020-02-01] MEDS: Pantoprazole Sodium 40 MG Tablet PO (06:17)
[2020-02-01] MEDS: Senna/Docusate Sodium 1 Tablet 2 TABLET PO ×2 (06:18→17:14)
[2020-02-01] MEDS: Nystatin Powder 15gm Bottle 1 APPLIC TOPICAL ×2 (06:22→20:56)
[2020-02-01] MEDS: Cyanocobalamin 500 MCG Tablet PO (08:24)
[2020-02-01] MEDS: Thiamine Hydrochloride 100 MG Tablet PO (08:24)
[2020-02-01] MEDS: Folic Acid 1 MG Tablet PO (08:25)
[2020-02-01] MEDS: Iron Polysaccharide Complex 150 MG CAPSULE PO (08:25)
[2020-02-01] MEDS: Magnesium Oxide 400 MG Tablet PO ×2 (08:25→17:15)
[2020-02-01] MEDS: Smz/Tmp Ds Tablet 1 TABLET PO (08:26)
--- NOTE | 2020-02-01 13:11 | CASEMGMT ---
Social Work IDT met with patient, and daughter via conference call for care plan meeting. Pt is ambulating 40 ft with FWW at CGA to min assist, CGA for transfers with FWW, min assist for toileting tasks, SBA for UE bathing, LE bathing min, max for LE dressing, min for UE dressing. Pt will be out of isolation 02/06. Physician started on antidepressant to assist with mood. explained insurance NRD 02/02 and continued stay is not guaranteed. Will continue to follow. JESSE Price WAX PATTERN REPAIRER
[2020-02-01 14:29] VITALS: BP 123/56; PULSE 98; RESP 16; TEMP 36.8; O2SAT 97
[2020-02-01 14:38] VITALS: PULSE 98
--- NOTE | 2020-02-01 14:46 | CHAPLAIN ---
Type of Pastoral Visit ___ Initial Visit _x__ Follow-up Visit ___ On-call Visit ___ General Patient Visit ___ Spiritual Assessment ___ Family Conference ___ Bereavement ___ Rapid Response ___ Code Blue ___ Other (describe below) Pastoral Care Referral From _x__ Patient ___ Family ___ Nurse ___ Physician ___ Compressor Service Technician ___ Inlayer Silver ___ Other (describe below) Sacrament/Intervention _x__ Active listening ___ Anointing ___ Protestant ___ Bereavement ___ Communion ___ Heather exploration ___ ___ Life review ___ Prayer ___ Reconciliation ___ Sacrament of Sick _x__ Supportive presence ___ Wedding ___ Other (describe below) Pastoral Comments
[2020-02-01] MEDS: MELATONIN 10 MG TABLET PO (20:51)
[2020-02-01 20:52] VITALS: BP 118/63; PULSE 88
[2020-02-01] MEDS: Atorvastatin Calcium 20 MG Tablet PO (20:52)
[2020-02-01] MEDS: Mirtazapine 15 MG Tablet 7.5 MG PO (20:54)
[2020-02-01] MEDS: oxyCODONE 5 MG Tablet PO (22:42)
[2020-02-02 05:21] VITALS: BP 129/57; PULSE 89; RESP 18; TEMP 36.8; O2SAT 92
[2020-02-02] MEDS: Polyethylene Glycol 3350 17 GM PACKET PO (05:23)
[2020-02-02] MEDS: Pantoprazole Sodium 40 MG Tablet PO (05:24)
[2020-02-02] MEDS: Enoxaparin 100 MG/ML Syringe 90 MG SC ×2 (05:24→18:06)
[2020-02-02] MEDS: dilTIAZem 60 MG Tablet PO ×2 (05:24→18:06)
[2020-02-02] MEDS: Amiodarone 200 MG Tablet PO (05:24)
[2020-02-02] MEDS: Senna/Docusate Sodium 1 Tablet 2 TABLET PO ×2 (05:24→18:06)
[2020-02-02 05:26] VITALS: BP 129/57; PULSE 89
[2020-02-02] MEDS: Umeclidinium Bromide Inhaler 1 PUFF IH (05:26)
[2020-02-02] MEDS: Furosemide 20 MG Tablet PO (05:26)
[2020-02-02] MEDS: Metoprolol Tartrate 25 MG Tablet 37.5 MG PO ×3 (05:26→21:27)
[2020-02-02] MEDS: Nystatin Powder 15gm Bottle 1 APPLIC TOPICAL ×2 (05:29→21:30)
[2020-02-02] MEDS: Smz/Tmp Ds Tablet 1 TABLET PO (08:00)
[2020-02-02] MEDS: Thiamine Hydrochloride 100 MG Tablet PO (08:00)
[2020-02-02] MEDS: Magnesium Oxide 400 MG Tablet PO ×2 (08:00→18:06)
[2020-02-02] MEDS: Iron Polysaccharide Complex 150 MG CAPSULE PO (08:00)
[2020-02-02] MEDS: Cyanocobalamin 500 MCG Tablet PO (08:00)
[2020-02-02] MEDS: Folic Acid 1 MG Tablet PO (08:00)
[2020-02-02 15:53] VITALS: BP 123/67; PULSE 90; RESP 16; TEMP 36.2; O2SAT 94
[2020-02-02 15:58] VITALS: BP 123/63; PULSE 93
[2020-02-02] MEDS: Tuberculin,Purif.prot.deriv. 50 TU/ML Vial 5 ML ID (16:12)
[2020-02-02 19:58] VITALS: PULSE 91; O2SAT 95
[2020-02-02 21:27] VITALS: BP 116/71; PULSE 90
[2020-02-02] MEDS: Mirtazapine 15 MG Tablet 7.5 MG PO (21:27)
[2020-02-02] MEDS: MELATONIN 10 MG TABLET PO (21:27)
[2020-02-02] MEDS: Atorvastatin Calcium 20 MG Tablet PO (21:27)
[2020-02-03] MEDS: Enoxaparin 100 MG/ML Syringe 90 MG SC ×2 (05:30→17:16)
[2020-02-03] MEDS: Polyethylene Glycol 3350 17 GM PACKET PO (05:30)
[2020-02-03] MEDS: Amiodarone 200 MG Tablet PO (05:30)
[2020-02-03 05:31] VITALS: BP 112/54; PULSE 72
[2020-02-03] MEDS: dilTIAZem 60 MG Tablet PO ×2 (05:31→17:16)
[2020-02-03] MEDS: Pantoprazole Sodium 40 MG Tablet PO (05:31)
[2020-02-03] MEDS: Senna/Docusate Sodium 1 Tablet 2 TABLET PO (05:31)
[2020-02-03] MEDS: Furosemide 20 MG Tablet PO (05:31)
[2020-02-03] MEDS: Metoprolol Tartrate 25 MG Tablet 37.5 MG PO ×3 (05:31→21:24)
[2020-02-03] MEDS: Nystatin Powder 15gm Bottle 1 APPLIC TOPICAL ×2 (05:32→21:30)
[2020-02-03] MEDS: Umeclidinium Bromide Inhaler 1 PUFF IH (05:32)
[2020-02-03 05:39] VITALS: RESP 19; TEMP 37; O2SAT 92
[2020-02-03] MEDS: Iron Polysaccharide Complex 150 MG CAPSULE PO (08:41)
[2020-02-03] MEDS: Thiamine Hydrochloride 100 MG Tablet PO (08:41)
[2020-02-03] MEDS: Folic Acid 1 MG Tablet PO (08:41)
[2020-02-03] MEDS: Smz/Tmp Ds Tablet 1 TABLET PO (08:41)
[2020-02-03] MEDS: Magnesium Oxide 400 MG Tablet PO ×2 (08:41→17:16)
[2020-02-03] MEDS: Cyanocobalamin 500 MCG Tablet PO (08:41)
--- NOTE | 2020-02-03 11:38 | NURSING ---
Resident spoke with his daughter a few minutes ago. Sitting comfortably in recliner. No complaints or concerns at this time.
[2020-02-03 12:45] VITALS: BP 104/56; PULSE 74
[2020-02-03 13:00] VITALS: BP 104/56; PULSE 74; RESP 18; TEMP 36.6; O2SAT 96
[2020-02-03] MEDS: MELATONIN 10 MG TABLET PO (21:23)
[2020-02-03] MEDS: Mirtazapine 15 MG Tablet 7.5 MG PO (21:23)
[2020-02-03 21:24] VITALS: BP 117/59; PULSE 97
[2020-02-03] MEDS: Atorvastatin Calcium 20 MG Tablet PO (21:24)
[2020-02-03 22:42] VITALS: O2SAT 93
[2020-02-04] MEDS: dilTIAZem 60 MG Tablet PO ×2 (05:06→17:16)
[2020-02-04] MEDS: Polyethylene Glycol 3350 17 GM PACKET PO (05:06)
[2020-02-04] MEDS: Umeclidinium Bromide Inhaler 1 PUFF IH (05:06)
[2020-02-04 05:07] VITALS: BP 112/55; PULSE 82
[2020-02-04] MEDS: Pantoprazole Sodium 40 MG Tablet PO (05:07)
[2020-02-04] MEDS: Metoprolol Tartrate 25 MG Tablet 37.5 MG PO ×3 (05:07→23:00)
[2020-02-04] MEDS: Enoxaparin 100 MG/ML Syringe 90 MG SC ×2 (05:08→17:17)
[2020-02-04] MEDS: Menthol/Lanolin/Calamine/Znox 113 GM Tube 1 APPLIC TOPICAL ×2 (05:08→23:04)
[2020-02-04] MEDS: Amiodarone 200 MG Tablet PO (05:08)
[2020-02-04] MEDS: Senna/Docusate Sodium 1 Tablet 2 TABLET PO ×2 (05:08→17:16)
[2020-02-04] MEDS: Furosemide 20 MG Tablet PO (05:08)
[2020-02-04] MEDS: Nystatin Powder 15gm Bottle 1 APPLIC TOPICAL ×2 (05:12→23:04)
[2020-02-04 05:20] VITALS: RESP 19; TEMP 36.6; O2SAT 92
[2020-02-04] MEDS: Iron Polysaccharide Complex 150 MG CAPSULE PO (07:44)
[2020-02-04] MEDS: Magnesium Oxide 400 MG Tablet PO ×2 (07:44→17:17)
[2020-02-04] MEDS: Thiamine Hydrochloride 100 MG Tablet PO (07:44)
[2020-02-04] MEDS: Cyanocobalamin 500 MCG Tablet PO (07:44)
[2020-02-04] MEDS: Smz/Tmp Ds Tablet 1 TABLET PO (07:44)
[2020-02-04] MEDS: Folic Acid 1 MG Tablet PO (07:44)
--- NOTE | 2020-02-04 08:00 | NS ---
Spoke w/ wound nurse re: res surgical wound Upper back wrapping to right side - she reports area is healed and tristan removed yesterday. Donavon no longer warranted at this time therefore will d/c. Continue to encourage good po intake at meals - res is on liberal Regular diet.
[2020-02-04 14:12] VITALS: PULSE 83
[2020-02-04 15:09] VITALS: BP 110/54; PULSE 75; RESP 14; TEMP 36.8; O2SAT 95
--- NOTE | 2020-02-04 15:48 | NURSING ---
spoke with daughter in law, Tamie, many questions regarding meds and physical ability.
--- NOTE | 2020-02-04 15:49 | PCS.PANDOC ---
PANDEMIC DOCUMENTATION INITIATED: Date: 02/04/20 Time: Called and spoke with pt's Kira to give an update on therapy and Pt's current level of function and any barriers to d/c. requested family training. international bank manager notified to discuss/schedule family training.
[2020-02-04 23:00] VITALS: BP 106/56; PULSE 83
[2020-02-04] MEDS: Atorvastatin Calcium 20 MG Tablet PO (23:01)
[2020-02-04] MEDS: MELATONIN 10 MG TABLET PO (23:02)
[2020-02-04] MEDS: Mirtazapine 15 MG Tablet 7.5 MG PO (23:03)
[2020-02-05 06:25] VITALS: BP 104/55; PULSE 82; RESP 18; TEMP 36.6; O2SAT 96
[2020-02-05] MEDS: Amiodarone 200 MG Tablet PO (06:27)
[2020-02-05] MEDS: Pantoprazole Sodium 40 MG Tablet PO (06:27)
[2020-02-05] MEDS: dilTIAZem 60 MG Tablet PO ×2 (06:27→18:21)
[2020-02-05] MEDS: Senna/Docusate Sodium 1 Tablet 2 TABLET PO (06:27)
[2020-02-05] MEDS: Menthol/Lanolin/Calamine/Znox 113 GM Tube 1 APPLIC TOPICAL ×2 (06:27→21:34)
[2020-02-05] MEDS: Furosemide 20 MG Tablet PO (06:27)
[2020-02-05 06:28] VITALS: BP 104/55; PULSE 82
[2020-02-05] MEDS: Metoprolol Tartrate 25 MG Tablet 37.5 MG PO ×3 (06:28→21:32)
[2020-02-05] MEDS: Enoxaparin 100 MG/ML Syringe 90 MG SC ×2 (06:29→18:22)
[2020-02-05] MEDS: Nystatin Powder 15gm Bottle 1 APPLIC TOPICAL ×2 (06:29→21:29)
[2020-02-05] MEDS: Umeclidinium Bromide Inhaler 1 PUFF IH (06:32)
[2020-02-05] MEDS: Cyanocobalamin 500 MCG Tablet PO (08:15)
[2020-02-05] MEDS: Folic Acid 1 MG Tablet PO (08:15)
[2020-02-05] MEDS: Iron Polysaccharide Complex 150 MG CAPSULE PO (08:15)
[2020-02-05] MEDS: Magnesium Oxide 400 MG Tablet PO ×2 (08:15→18:22)
[2020-02-05] MEDS: Smz/Tmp Ds Tablet 1 TABLET PO (08:15)
[2020-02-05] MEDS: Thiamine Hydrochloride 100 MG Tablet PO (08:15)
[2020-02-05 13:35] VITALS: BP 114/60; PULSE 82
[2020-02-05 14:10] VITALS: BP 114/60; PULSE 82; RESP 16; TEMP 36.3; O2SAT 93
[2020-02-05] MEDS: oxyCODONE 5 MG Tablet PO (21:31)
[2020-02-05 21:32] VITALS: BP 115/55; PULSE 85
[2020-02-05] MEDS: Atorvastatin Calcium 20 MG Tablet PO (21:32)
[2020-02-05] MEDS: MELATONIN 10 MG TABLET PO (21:32)
[2020-02-05] MEDS: Mirtazapine 15 MG Tablet 7.5 MG PO (21:34)
[2020-02-06 05:25] VITALS: BP 145/71; PULSE 85; RESP 18; TEMP 36.7; O2SAT 95
[2020-02-06] MEDS: Menthol/Lanolin/Calamine/Znox 113 GM Tube 1 APPLIC TOPICAL ×2 (05:27→21:44)
[2020-02-06] MEDS: Nystatin Powder 15gm Bottle 1 APPLIC TOPICAL ×2 (05:27→21:44)
[2020-02-06] MEDS: Polyethylene Glycol 3350 17 GM PACKET PO (05:29)
[2020-02-06] MEDS: Umeclidinium Bromide Inhaler 1 PUFF IH (05:29)
[2020-02-06] MEDS: Bisacodyl 5 MG Tablet 10 MG PO (05:29)
[2020-02-06] MEDS: Enoxaparin 100 MG/ML Syringe 90 MG SC ×2 (05:30→17:31)
[2020-02-06 05:31] VITALS: BP 145/71; PULSE 85
[2020-02-06] MEDS: Pantoprazole Sodium 40 MG Tablet PO (05:31)
[2020-02-06] MEDS: Amiodarone 200 MG Tablet PO (05:31)
[2020-02-06] MEDS: Metoprolol Tartrate 25 MG Tablet 37.5 MG PO ×3 (05:31→21:43)
[2020-02-06] MEDS: Senna/Docusate Sodium 1 Tablet 2 TABLET PO (05:31)
[2020-02-06] MEDS: dilTIAZem 60 MG Tablet PO ×2 (05:31→17:31)
[2020-02-06] MEDS: Furosemide 20 MG Tablet PO (05:31)
[2020-02-06] MEDS: Thiamine Hydrochloride 100 MG Tablet PO (08:15)
[2020-02-06] MEDS: Iron Polysaccharide Complex 150 MG CAPSULE PO (08:15)
[2020-02-06] MEDS: Magnesium Oxide 400 MG Tablet PO ×2 (08:15→16:18)
[2020-02-06] MEDS: Cyanocobalamin 500 MCG Tablet PO (08:16)
[2020-02-06] MEDS: Folic Acid 1 MG Tablet PO (08:16)
[2020-02-06] MEDS: Smz/Tmp Ds Tablet 1 TABLET PO (08:16)
[2020-02-06] MEDS: oxyCODONE 5 MG Tablet PO (08:20)
[2020-02-06 11:42] VITALS: BP 108/57; PULSE 73; RESP 14; TEMP 36.7; O2SAT 97
[2020-02-06 12:59] VITALS: BP 108/57; PULSE 73
[2020-02-06 20:12] VITALS: PULSE 98; O2SAT 93
[2020-02-06 21:43] VITALS: BP 109/52; PULSE 80
[2020-02-06] MEDS: Atorvastatin Calcium 20 MG Tablet PO (21:43)
[2020-02-06] MEDS: Mirtazapine 15 MG Tablet 7.5 MG PO (21:43)
[2020-02-06] MEDS: MELATONIN 10 MG TABLET PO (21:43)
[2020-02-07] MEDS: Umeclidinium Bromide Inhaler 1 PUFF IH (05:06)
[2020-02-07] MEDS: Enoxaparin 100 MG/ML Syringe 90 MG SC ×2 (05:06→16:44)
[2020-02-07 05:07] VITALS: BP 122/62; PULSE 96
[2020-02-07] MEDS: Polyethylene Glycol 3350 17 GM PACKET PO (05:07)
[2020-02-07] MEDS: Amiodarone 200 MG Tablet PO (05:07)
[2020-02-07] MEDS: Menthol/Lanolin/Calamine/Znox 113 GM Tube 1 APPLIC TOPICAL ×2 (05:07→19:42)
[2020-02-07] MEDS: Nystatin Powder 15gm Bottle 1 APPLIC TOPICAL ×2 (05:07→19:42)
[2020-02-07] MEDS: Metoprolol Tartrate 25 MG Tablet 37.5 MG PO ×3 (05:07→21:11)
[2020-02-07] MEDS: Pantoprazole Sodium 40 MG Tablet PO (05:07)
[2020-02-07] MEDS: dilTIAZem 60 MG Tablet PO ×2 (05:07→16:34)
[2020-02-07] MEDS: Senna/Docusate Sodium 1 Tablet 2 TABLET PO ×2 (05:07→16:34)
[2020-02-07] MEDS: Furosemide 20 MG Tablet PO (05:07)
[2020-02-07 05:17] VITALS: RESP 19; TEMP 37.2; O2SAT 92
[2020-02-07] MEDS: Smz/Tmp Ds Tablet 1 TABLET PO (08:23)
[2020-02-07] MEDS: Thiamine Hydrochloride 100 MG Tablet PO (08:23)
[2020-02-07] MEDS: Folic Acid 1 MG Tablet PO (08:23)
[2020-02-07] MEDS: Magnesium Oxide 400 MG Tablet PO ×2 (08:23→16:34)
[2020-02-07] MEDS: Iron Polysaccharide Complex 150 MG CAPSULE PO (08:23)
[2020-02-07] MEDS: Cyanocobalamin 500 MCG Tablet PO (08:23)
[2020-02-07 12:45] VITALS: BP 115/61; PULSE 82; RESP 18; TEMP 36.7; O2SAT 95
[2020-02-07 13:02] VITALS: BP 115/61; PULSE 82
[2020-02-07] MEDS: Bisacodyl 5 MG Tablet 10 MG PO (16:34)
[2020-02-07] MEDS: Acetaminophen 500 MG Tablet 1000 MG PO (19:41)
[2020-02-07 21:11] VITALS: BP 100/72; PULSE 73
[2020-02-07] MEDS: Mirtazapine 15 MG Tablet 7.5 MG PO (21:12)
[2020-02-07] MEDS: Atorvastatin Calcium 20 MG Tablet PO (21:12)
[2020-02-07] MEDS: MELATONIN 10 MG TABLET PO (21:13)
[2020-02-08 06:10] VITALS: BP 109/60; PULSE 78; RESP 18; TEMP 36.5; O2SAT 95
[2020-02-08] MEDS: Nystatin Powder 15gm Bottle 1 APPLIC TOPICAL ×2 (06:12→22:18)
[2020-02-08] MEDS: Menthol/Lanolin/Calamine/Znox 113 GM Tube 1 APPLIC TOPICAL ×2 (06:12→22:18)
[2020-02-08] MEDS: Umeclidinium Bromide Inhaler 1 PUFF IH (06:13)
[2020-02-08 06:14] VITALS: BP 109/60; PULSE 78
[2020-02-08] MEDS: Metoprolol Tartrate 25 MG Tablet 37.5 MG PO ×3 (06:14→22:15)
[2020-02-08] MEDS: Enoxaparin 100 MG/ML Syringe 90 MG SC ×2 (06:14→16:56)
[2020-02-08] MEDS: Pantoprazole Sodium 40 MG Tablet PO (06:14)
[2020-02-08] MEDS: Furosemide 20 MG Tablet PO (06:15)
[2020-02-08] MEDS: Polyethylene Glycol 3350 17 GM PACKET PO (06:15)
[2020-02-08] MEDS: Senna/Docusate Sodium 1 Tablet 2 TABLET PO (06:15)
[2020-02-08] MEDS: Amiodarone 200 MG Tablet PO (06:15)
[2020-02-08] MEDS: dilTIAZem 60 MG Tablet PO ×2 (06:15→16:53)
[2020-02-08 06:50] LABS: Absolute Lymphocyte Count 0.48 X10^3/uL (0.83-4.51); Absolute Neutrophil Count 3.1 X10^3/uL (2.0-7.7); Basophil# 0.03 X10^3/uL; Basophil% 0.7 % (0-1); Eosinophil# 0.13 X10^3/uL; Eosinophils% 3.2 % (0-5); Hematocrit 28.2 % (40-54); Hemoglobin 8.6 g/dL (13.0-16.5); Lymphocyte # 0.48 X10^3/ul (4.0); Lymphocyte % 11.8 % (19-41); Mean Corp Hgb Conc 30.5 g/dL (32-36); Mean Corpuscular Hgb 30.1 pg (27.0-32.0); Mean Corpuscular Volume 98.6 fL (80-94); Monocyte# 0.35 X10^3/uL; Monocyte% 8.6 % (0-10); NRBC Flagged by Analyzer 0 % (0-5); Neutrophil # 3.05 X10^3/uL (2.7-7.7); POSITIVE DIFFERENTIAL YES; Platelet Count 211 K/mm3 (150-450); RBC Distribution Width CV 14.3 % (11.6-14.6); RBC Distribution Width SD 50.7 fl (35.1-43.9); Red Blood Count 2.86 M/mm3 (4.6-6.2); White Blood Count 4.1 K/mm3 (4.4-11.0)
[2020-02-08 06:51] LABS: Differential Indicated SCAN CRITERIA MET
[2020-02-08 07:11] LABS: Differential Comment SCANNED
[2020-02-08 07:16] LABS: Anion Gap 4 (5-15); BUN 24 mg/dL (7-18); BUN/Creat Ratio 23.3 RATIO (10-20); Calcium,Total 8.5 mg/dL (8.5-10.1); Chloride 106 mmol/L (98-107); Creatinine, Serum 1.03 mg/dL (0.70-1.30); EST Glomerular Filtration Rate 76 mL/min (>60); Est Glom Filt Rate - Afr Amer 91 mL/min (>60); Estimated Creatinine Clearance 63.64 ml/min; Glucose 89 mg/dL (74-106); Potassium 4.2 mmol/L (3.5-5.1); Sodium Level 140 mmol/L (136-145)
[2020-02-08] MEDS: Thiamine Hydrochloride 100 MG Tablet PO (08:47)
[2020-02-08] MEDS: Folic Acid 1 MG Tablet PO (08:47)
[2020-02-08] MEDS: Cyanocobalamin 500 MCG Tablet PO (08:47)
[2020-02-08] MEDS: Smz/Tmp Ds Tablet 1 TABLET PO (08:47)
[2020-02-08] MEDS: Magnesium Oxide 400 MG Tablet PO ×2 (08:47→16:56)
[2020-02-08] MEDS: Iron Polysaccharide Complex 150 MG CAPSULE PO (08:47)
[2020-02-08 10:00] VITALS: PULSE 78; RESP 18
[2020-02-08 13:19] VITALS: BP 96/48; PULSE 78
[2020-02-08 15:39] VITALS: BP 110/64; PULSE 80; RESP 18; TEMP 36.6; O2SAT 96
[2020-02-08 22:15] VITALS: BP 110/57; PULSE 78
[2020-02-08] MEDS: Atorvastatin Calcium 20 MG Tablet PO (22:16)
[2020-02-08] MEDS: MELATONIN 10 MG TABLET PO (22:16)
[2020-02-08] MEDS: Mirtazapine 15 MG Tablet 7.5 MG PO (22:16)
[2020-02-09] MEDS: Nystatin Powder 15gm Bottle 1 APPLIC TOPICAL ×2 (05:21→22:12)
[2020-02-09] MEDS: Menthol/Lanolin/Calamine/Znox 113 GM Tube 1 APPLIC TOPICAL ×2 (05:22→22:12)
[2020-02-09] MEDS: Senna/Docusate Sodium 1 Tablet 2 TABLET PO (05:22)
[2020-02-09] MEDS: Pantoprazole Sodium 40 MG Tablet PO (05:23)
[2020-02-09] MEDS: Furosemide 20 MG Tablet PO (05:23)
[2020-02-09] MEDS: dilTIAZem 60 MG Tablet PO ×2 (05:24→17:16)
[2020-02-09] MEDS: Umeclidinium Bromide Inhaler 1 PUFF IH (05:24)
[2020-02-09 05:25] VITALS: BP 131/62; PULSE 64
[2020-02-09] MEDS: Metoprolol Tartrate 25 MG Tablet 37.5 MG PO ×3 (05:25→22:15)
[2020-02-09] MEDS: Enoxaparin 100 MG/ML Syringe 90 MG SC ×2 (05:27→17:16)
[2020-02-09] MEDS: Amiodarone 200 MG Tablet PO (05:33)
[2020-02-09 05:37] VITALS: RESP 18; TEMP 36.7; O2SAT 93
[2020-02-09] MEDS: Iron Polysaccharide Complex 150 MG CAPSULE PO (07:41)
[2020-02-09] MEDS: Smz/Tmp Ds Tablet 1 TABLET PO (07:41)
[2020-02-09] MEDS: Thiamine Hydrochloride 100 MG Tablet PO (07:41)
[2020-02-09] MEDS: Cyanocobalamin 500 MCG Tablet PO (07:42)
[2020-02-09] MEDS: Magnesium Oxide 400 MG Tablet PO ×2 (07:42→16:50)
[2020-02-09] MEDS: Folic Acid 1 MG Tablet PO (07:42)
[2020-02-09 11:58] LABS: Pathologist Review Reviewed
[2020-02-09 12:26] VITALS: PULSE 82; RESP 18; O2SAT 95
[2020-02-09 13:22] VITALS: BP 119/64; PULSE 82
[2020-02-09 16:00] VITALS: BP 143/87; PULSE 70; RESP 16; TEMP 36.5; O2SAT 97
[2020-02-09] MEDS: Atorvastatin Calcium 20 MG Tablet PO (22:14)
[2020-02-09 22:15] VITALS: BP 122/66; PULSE 77
[2020-02-09] MEDS: MELATONIN 10 MG TABLET PO (22:17)
[2020-02-09] MEDS: Mirtazapine 15 MG Tablet 7.5 MG PO (22:18)
[2020-02-10 05:06] VITALS: BP 115/53; PULSE 77
[2020-02-10] MEDS: Enoxaparin 100 MG/ML Syringe 90 MG SC ×2 (05:06→17:17)
[2020-02-10] MEDS: Metoprolol Tartrate 25 MG Tablet 37.5 MG PO ×3 (05:06→20:47)
[2020-02-10] MEDS: Amiodarone 200 MG Tablet PO (05:07)
[2020-02-10] MEDS: Pantoprazole Sodium 40 MG Tablet PO (05:08)
[2020-02-10] MEDS: Umeclidinium Bromide Inhaler 1 PUFF IH (05:08)
[2020-02-10] MEDS: dilTIAZem 60 MG Tablet PO ×2 (05:08→17:18)
[2020-02-10] MEDS: Furosemide 20 MG Tablet PO (05:08)
[2020-02-10] MEDS: Menthol/Lanolin/Calamine/Znox 113 GM Tube 1 APPLIC TOPICAL ×2 (05:10→20:09)
[2020-02-10] MEDS: Nystatin Powder 15gm Bottle 1 APPLIC TOPICAL ×2 (05:10→20:08)
[2020-02-10 05:12] VITALS: RESP 19; TEMP 36.7; O2SAT 94
[2020-02-10] MEDS: Iron Polysaccharide Complex 150 MG CAPSULE PO (08:31)
[2020-02-10] MEDS: Folic Acid 1 MG Tablet PO (08:31)
[2020-02-10] MEDS: Smz/Tmp Ds Tablet 1 TABLET PO (08:31)
[2020-02-10] MEDS: Magnesium Oxide 400 MG Tablet PO ×2 (08:32→17:17)
[2020-02-10] MEDS: Cyanocobalamin 500 MCG Tablet PO (08:32)
[2020-02-10] MEDS: Thiamine Hydrochloride 100 MG Tablet PO (08:32)
[2020-02-10] MEDS: Acetaminophen 500 MG Tablet 1000 MG PO ×2 (08:34→20:07)
--- NOTE | 2020-02-10 12:21 | NURSING ---
called Kira and updated on patient status, clarified that laundry is not washed on this unit and that we ask family to wash clothes at home. she reported that she will gather clean clothes and daughter will take to main entrance, asked for them to notify unit when they are coming and we will have dirty laundry at main entrance to switch out.
[2020-02-10 13:33] VITALS: PULSE 76
[2020-02-10 14:57] VITALS: BP 108/59; PULSE 69; RESP 16; TEMP 36.6; O2SAT 97
--- NOTE | 2020-02-10 15:09 | CASEMGMT ---
Social Work Spoke with pt and about DC plans. Pt requesting to DC home with /2. provided list of [facility] agencies via email - chose [facility]. Referral made for PT/OT/SN. No DME needs. Plan: DC home with 02/14 with [facility] PT/OT/SN. Fiordaliza Bernal, JESSE WILSONW
[2020-02-10 20:47] VITALS: BP 101/61; PULSE 77
[2020-02-10] MEDS: Mirtazapine 15 MG Tablet 7.5 MG PO (20:47)
[2020-02-10] MEDS: Atorvastatin Calcium 20 MG Tablet PO (20:47)
[2020-02-10] MEDS: MELATONIN 10 MG TABLET PO (20:47)
--- NOTE | 2020-02-10 21:50 | DCINST_ITS ---
- Discharge Diagnoses Current Active Problems: Current Active and Chronic Problems Debility (Acute) Pancoast tumor of right lung (Acute) Pulmonary embolism (Acute) Deep vein thrombosis (Acute) Atrial fibrillation with rapid ventricular response (Acute) GERD (gastroesophageal reflux disease) (Chronic) Hyperlipidemia (Chronic) Peripheral arterial occlusive disease (Chronic) Alcohol abuse (Chronic) Tobacco abuse (Chronic) Leukopenia (Chronic) Hypertension (Chronic) Hyponatremia (Chronic) Supraventricular tachycardia (Chronic) You will use the following diet at home:: No restrictions, Regular Your food should be the consistency of: Regular Your liquids should be the consistency of: Regular/Thin Discharge Activity: Return to Normal Activity, May Shower, Use Walker Weight Bearing Status: Weight bearing as tolerated Call your doctor if you observe: Fever of 101 or Higher, Inability to urinate, Inability to have a bowel movement, Shortness of breath, Chest pain, Uncontrolled pain Allergies/Adverse Reactions: Allergies No Known Allergies Allergy (Verified 10/09/19 09:24) Medications to take at Discharge Cholecalciferol (Vitamin D3) [Vitamin D3] 2,000 unit PO DAILY 10/09/19 Cyanocobalamin [Vitamin B12] 500 mcg PO DAILY@0800 10/09/19 Diltiazem [Cardizem] 60 mg PO BID 10/09/19 Fluticasone 110 Mcg [Flovent 110 Mcg] 2 puff INHALATION BID 10/09/19 Folic Acid 0.4 mg PO DAILY@0800 10/09/19 Furosemide [Lasix] 20 mg PO DAILY 10/09/19 Omeprazole [Prilosec] 40 mg PO QODAY 10/09/19 Smz/Tmp Ds [Bactrim Ds] 1 tab PO DAILY 10/09/19 Tiotropium [place] [Spiriva] 18 mcg IH DAILY 10/09/19 Acetaminophen [Tylenol] 1,000 mg PO Q6H PRN PRN tablet 02/10/20 Albuterol Inhaler [Ventolin Hfa] 2 puff INHALATION Q4H PRN PRN #1 inhaler 0 02/10/20 Amiodarone HCl [Cordarone] 200 mg PO DAILY #30 tab 02/10/20 Apixaban [Eliquis] 5 mg PO BID #60 tab 02/10/20 Atorvastatin Calcium [Lipitor] 20 mg PO QHS #30 tab 02/10/20 Folic Acid 1 mg PO DAILY@0800 tablet 02/10/20 Iron Polysaccharide Complex [Ferrex 150] 150 mg PO DAILYCM #30 cap 02/10/20 Magnesium Oxide [Mag-Ox 400] 400 mg PO BIDCM #60 tab 02/10/20 Melatonin 10 mg PO QHS tablet 02/10/20 Menthol/Lanolin/Calamine/Znox [Calmoseptine Ointment] 1 applic TOPICAL 0600,2200 tube 02/10/20 Metoprolol Tartrate [Lopressor (beta brenna)] 37.5 mg PO Q8 #120 tab 02/10/20 Mineral Oil/Petrolatum,White [Eucerin] 1 applic TOPICAL HS jar 02/10/20 Mirtazapine [Remeron] 7.5 mg PO QHS #60 tab 02/10/20 Nystatin Powder [Mycostatin Powder] 1 applic TOPICAL 0600,2200 bottle 02/10/20 Thiamine Hydrochloride [Vitamin B1] 100 mg PO DAILYCM #30 tab 02/10/20 The following prescriptions were given: Amiodarone HCl [Cordarone] 200 mg PO DAILY #30 tab [facility] Status[facility] Apixaban [Eliquis] 5 mg PO BID #60 tab Transmission Status: [facility] Iron Polysaccharide Complex [Ferrex 150] 150 mg PO DAILYCM #30 cap Transmission Status: [facility] Atorvastatin Calcium [Lipitor] 20 mg PO QHS #30 tab Transmission Status: [facility] Metoprolol Tartrate [Lopressor (beta brenna)] 37.5 mg PO Q8 #120 tab Transmission Status: [facility] Magnesium Oxide [Mag-Ox 400] 400 mg PO BIDCM #60 tab Transmission Status: [facility] Mirtazapine [Remeron] 7.5 mg PO QHS #60 tab Transmission Status: [facility] Albuterol Inhaler [Ventolin Hfa] 2 puff INHALATION Q4H PRN PRN #1 inhaler PRN Reason: SOB &/OR WHEEZING Transmission Status: [facility] Thiamine Hydrochloride [Vitamin B1] 100 mg PO DAILYCM #30 tab Transmission Status: [facility] Primary Care Physician: Matti Wilkins MD [NON-STAFF] - Please follow up with your Primary Care Physician in: 1 week. Test Results: Test results from this visit will be discussed in further detail at your follow- up appointment, if applicable. Please Follow Up With: Dr Chino Please Follow Up With: Dr. Mcgowan When: 2 weeks. Please Follow Up With: Jacinto Marquez DO - Pancoast tumor. When: 2 weeks. Proposed Discharge Date: 02/15/20
--- NOTE | 2020-02-10 21:53 | DS.PCM_ITS ---
Discharge Date and Diagnosis - Problem List Patient Problems: Active and Suspected Problems Debility (Acute) Pancoast tumor of right lung (Acute) Pulmonary embolism (Acute) Deep vein thrombosis (Acute) Atrial fibrillation with rapid ventricular response (Acute) Date of Admission: 01/25/20 Date of Discharge: 02/15/20 - Primary Discharge Diagnosis Acute Problems: Active Problems Debility (Acute) Pancoast tumor of right lung (Acute) Pulmonary embolism (Acute) Deep vein thrombosis (Acute) Atrial fibrillation with rapid ventricular response (Acute) - Secondary Discharge Diagnosis Chronic Problems: Chronic Problems Bladder cancer (Chronic) Rotator cuff tear (Chronic) Coronary artery disease (Chronic) COPD (chronic obstructive pulmonary disease) (Chronic) GERD (gastroesophageal reflux disease) (Chronic) Hyperlipidemia (Chronic) Peripheral arterial occlusive disease (Chronic) Alcohol abuse (Chronic) Tobacco abuse (Chronic) Leukopenia (Chronic) Hypertension (Chronic) Hyponatremia (Chronic) Supraventricular tachycardia (Chronic) Hospital Course and Treatment Imaging Results: 01/25/20 16:58 Diet: Regular Diet Food consistency:: Regular Liquid Consistency:: Regular/Thin Diet Comments: built up utensils w/meals Clinical Impression(s) from Imaging Studies Chest X-Ray 01/27/20 17:56 IMPRESSION: Surgical changes on the right chest wall with hypoexpansion right lung and right basilar atelectasis. Electronically Signed: Hal Fontana DO at 19:35 EDT Tel [phone], Service support , KUB X-Ray 01/27/20 17:56 IMPRESSION: 1. No evidence of acute intra-abdominal process. There is no marked feces to suggest constipation. 2. Surgical changes of the right lower chest and right upper abdomen. 3. Status post cholecystectomy and pelvic dissection. 4. Atherosclerotic changes of the aorta and iliac arteries Electronically Signed: Hal Fontana DO at 19:26 EDT Tel [phone], Service support , Labs (Last 48 Hours) 02/08/20 06:36 Diff Path Review Reviewed Operations: None Procedures: None Summary of Care Provided: The patient is a 69 year old Male with below past medical history hospitalized for right apical pancoast tumor, underwent resection 01/11/2020, complicated by Pulmonary embolism/Deep Vein Thrombosis, atrial fibrillation with rapid ventricular response, infected cystic acne, admitted to TCU with debility, here for rehabilitation, strengthening, wound care, prior to discharge home with . Metoprolol, Eliquis added for atrial fibrillation. Eliquis added for DVT/PE as well. Mirtazapine added for lack of appetite/depression/insomnia. Discharge home with , [facility] PT/OT/SN. Patient Problems: Active and Suspected Problems Debility (Acute) Pancoast tumor of right lung (Acute) Pulmonary embolism (Acute) Deep vein thrombosis (Acute) Atrial fibrillation with rapid ventricular response (Acute) - Physical Exam Vitals/I&O's: Vital Signs Temp Pulse Resp BP Pulse Ox 97.8 F 77 16 101/61 97 02/10/20 14:57 02/10/20 20:47 02/10/20 14:57 02/10/20 20:47 02/10/20 14:57 Oxygen Delivery Method Room Air Weight: 86.409 kg Body Mass Index (BMI) 29.7 Intake and Output for Last 24 Hours 02/08/20 02/09/20 02/10/20 23:59 23:59 23:59 Intake Total 880 / 880 480 / 480 840 / 840 Balance 880 / 880 480 / 480 840 / 840 Current Medications Acetaminophen (Tylenol) 1,000 mg PO Q6H PRN PRN PRN Reason: Pain Score 1-3/10 Last Admin: 02/10/20 20:07 Dose: 1,000 mg Documented by: Albuterol Sulfate (Ventolin Hfa (Sp)) 2 puff INHALATION Q4H PRN PRN PRN Reason: SOB &/OR WHEEZING Amiodarone HCl (Cordarone) 200 mg PO DAILY [facility] Last Admin: 02/10/20 05:07 Dose: 200 mg Documented by: Atorvastatin Calcium (Lipitor) 20 mg PO QHS [facility] Last Admin: 02/10/20 20:47 Dose: 20 mg Documented by: Bisacodyl (Dulcolax) 10 mg PO DAILY PRN PRN Reason: Constipation Last Admin: 02/07/20 16:34 Dose: 10 mg Documented by: Calamine/Phenol (Calmoseptine Ointment) 1 applic TOPICAL 0600,2200 [facility]; Protocol Last Admin: 02/10/20 20:09 Dose: 1 applicatio Documented by: Cholecalciferol (Vitamin D (25mcg)) 2,000 unit PO DAILY [facility] Last Admin: 02/10/20 05:08 Dose: 2,000 unit Documented by: Cyanocobalamin (Vitamin B12) 500 mcg PO DAILY@0800 [facility] Last Admin: 02/10/20 08:32 Dose: 500 mcg Documented by: Diltiazem HCl (Cardizem) 60 mg PO BID [facility] Last Admin: 02/10/20 17:18 Dose: 60 mg Documented by: Enoxaparin Sodium (Lovenox) 90 mg SC Q12@0600,1800 [facility] Last Admin: 02/10/20 17:17 Dose: 90 mg Documented by: Fluticasone Propionate (Flovent Diskus 100 Mcg) 1 puff INHALATION BID [facility] Last Admin: 02/10/20 17:17 Dose: 1 puff Documented by: Folic Acid (Folic Acid) 1 mg PO DAILY@0800 [facility] Last Admin: 02/10/20 08:31 Dose: 1 mg Documented by: Furosemide (Lasix) 20 mg PO DAILY [facility] Last Admin: 02/10/20 05:08 Dose: 20 mg Documented by: Lidocaine/Diphenhydr/Alum/Mg/Simeth () 5 ml PO Q4H PRN PRN PRN Reason: Pain Score 1-10/10 Magnesium Oxide (Mag-Ox 400) 400 mg PO BIDCM [facility] Last Admin: 02/10/20 17:17 Dose: 400 mg Documented by: Melatonin (Melatonin) 10 mg PO QHS [facility] Last Admin: 02/10/20 20:47 Dose: 10 mg Documented by: Metoprolol Tartrate (Lopressor (Beta Nayely)) 37.5 mg PO Q8 [facility] Stop: 02/25/20 23:59 Last Admin: 02/10/20 20:47 Dose: 37.5 mg Documented by: Mirtazapine (Remeron) 7.5 mg PO QHS [facility] Last Admin: 02/10/20 20:47 Dose: 7.5 mg Documented by: Multi-Ingredient Cream (Eucerin) 1 applic TOPICAL HS [facility]; Protocol Last Admin: 02/10/20 20:08 Dose: 1 applicatio Documented by: Nystatin (Mycostatin Powder) 1 applic TOPICAL 0600,2200 [facility]; Protocol Last Admin: 02/10/20 20:08 Dose: 1 applicatio Documented by: Oxycodone HCl (Oxyir) 5 mg PO Q4H PRN PRN PRN Reason: Pain Score 4-10/10 Last Admin: 02/06/20 08:20 Dose: 5 mg Documented by: Pantoprazole Sodium (Protonix) 40 mg PO DAILY [facility] Last Admin: 02/10/20 05:08 Dose: 40 mg Documented by: Polyethylene Glycol (Miralax) 17 gm PO DAILY [facility] Last Admin: 02/10/20 05:09 Dose: Not Given Documented by: [facility]accharide [facility] 150) [facility] Last Admin: 02/10/20 08:31 Dose: 150 mg Documented by: Senna/Docusate Sodium (Senokot-S, Anette-Colace) 2 tablet PO BID [facility] Last Admin: 02/10/20 17:22 Dose: Not Given Documented by: Thiamine HCl ([facility]itamin B1) [facility] Last Admin: 02/10/20 08:32 Dose: 100 mg Documented by: Trimethoprim/Sulfamethoxazole (Bactrim Ds) 1 tablet PO DAILY@0800 [facility] Last Admin: 02/10/20 08:31 Dose: 1 tablet Documented by: Umeclidinium [place] (Incruse Ellipta Inhaler) 1 puff IH DAILY [facility] Last Admin: 02/10/20 05:08 Dose: 1 puff Documented by: Discharge Diet: No Restrictions Discharge Activity: Return to Normal Activity, May Shower, Use Walker Weight Bearing Status: Weight bearing as tolerated Call your doctor if you observe: Fever of 101 or Higher, Inability to urinate, Inability to have a bowel movement, Shortness of breath, Chest pain, Uncontrolled pain Home Medications: Medications to take at Discharge Cholecalciferol (Vitamin D3) [Vitamin D3] 2,000 unit PO DAILY 10/09/19 Cyanocobalamin [Vitamin B12] 500 mcg PO DAILY@0810/09/19 Diltiazem [Cardizem] 60 mg PO BID 10/09/19 Fluticasone 110 Mcg [Flovent 110 Mcg] 2 puff INHALATION BID 10/09/19 Folic Acid 0.4 mg PO DAILY@0800 10/09/19 Furosemide [Lasix] 20 mg PO DAILY 10/09/19 Omeprazole [Prilosec] 40 mg PO QODAY 10/09/19 Smz/Tmp Ds [Bactrim Ds] 1 tab PO DAILY 10/09/19 Tiotropium [place] [Spiriva] 18 mcg IH DAILY 10/09/19 Acetaminophen [Tylenol] 1,000 mg PO Q6H PRN PRN tablet 02/10/20 Albuterol Inhaler [Ventolin Hfa] 2 puff INHALATION Q4H PRN PRN #1 inhaler 02/10/20 Amiodarone HCl [Cordarone] 200 mg PO DAILY #30 tab 02/10/20 Apixaban [Eliquis] 5 mg PO BID #60 tab 02/10/20 Atorvastatin Calcium [Lipitor] 20 mg PO QHS #30 tab 02/10/20 Folic Acid 1 mg PO DAILY@0800 tablet 02/10/20 Iron Polysaccharide Complex [Ferrex 150] 150 mg PO DAILYCM #30 cap 02/10/20 Magnesium Oxide [Mag-Ox 400] 400 mg PO BIDCM #60 tab 02/10/20 Melatonin 10 mg PO QHS tablet 02/10/20 Menthol/Lanolin/Calamine/Znox [Calmoseptine Ointment] 1 applic TOPICAL 0600,2200 tube 02/10/20 Metoprolol Tartrate [Lopressor (beta nayely)] 37.5 mg PO Q8 #120 tab 02/10/20 Mineral Oil/Petrolatum,White [Eucerin] 1 applic TOPICAL HS jar 02/10/20 Mirtazapine [Remeron] 7.5 mg PO QHS #60 tab 02/10/20 Nystatin Powder [Mycostatin Powder] 1 applic TOPICAL 0600,2200 bottle 02/10/20 Thiamine Hydrochloride [Vitamin B1] 100 mg PO DAILYCM #30 tab 02/10/20 Following Prescrptions Were Given to Patient: Amiodarone HCl [Cordarone] 200 mg PO DAILY #30 tab Transmission Status: Pending to [facility] 1811 Apixaban [Eliquis] 5 mg PO BID #60 tab Transmission Status: Pending to [facility] 181 Iron Polysaccharide Complex [Ferrex 150] 150 mg PO DAILYCM #30 cap Transmission Status: Pending to [facility] 181 Atorvastatin Calcium [Lipitor] 20 mg PO QHS #30 tab Transmission Status: Pending to [facility] 181 Metoprolol Tartrate [Lopressor (beta nayely)] 37.5 mg PO Q8 #120 tab Transmission Status: Pending to [facility]11 Magnesium Oxide [Mag-Ox 400] 400 mg PO BIDCM #60 tab Transmission Status: Pending to [facility]11 Mirtazapine [Remeron] 7.5 mg PO QHS #60 tab Transmission Status: Pending to [facility]11 Albuterol Inhaler [Ventolin Hfa] 2 puff INHALATION Q4H PRN PRN #1 inhaler PRN Reason: SOB &/OR WHEEZING Transmission Status: Pending to [facility]11 Thiamine Hydrochloride [Vitamin B1] 100 mg PO DAILYCM #30 tab Transmission Status: Pending to [facility] Primary Care Physician: Matti Wilkins MD [NON-STAFF] - Please follow up with your Primary Care Physician in: 1 week. Please Follow Up With: Dr Chino Please Follow Up With: Dr. Mcgowan When: 2 weeks. Please Follow Up With: Jacinto Marquez DO - Pancoa tumor. When: 2 weeks. Disposition: Home with Home Health Minutes spent on discharge:: 35 Patient Condition:: Stable Medical Necessity - Tobacco Use Smoking Status: Former smoker Tobacco Use: Non-smoker Meaningful Use Info Meaningful Use Diagnoses (Choose all that apply): None applicable
[2020-02-11 05:32] VITALS: BP 132/75; PULSE 80; RESP 18; TEMP 36.9; O2SAT 95
[2020-02-11] MEDS: Nystatin Powder 15gm Bottle 1 APPLIC TOPICAL ×2 (05:33→20:27)
[2020-02-11] MEDS: Menthol/Lanolin/Calamine/Znox 113 GM Tube 1 APPLIC TOPICAL ×2 (05:33→20:28)
[2020-02-11] MEDS: Umeclidinium Bromide Inhaler 1 PUFF IH (05:36)
[2020-02-11] MEDS: Acetaminophen 500 MG Tablet 1000 MG PO ×2 (05:36→20:27)
[2020-02-11] MEDS: Enoxaparin 100 MG/ML Syringe 90 MG SC ×2 (05:37→17:04)
[2020-02-11 05:38] VITALS: BP 132/75; PULSE 80
[2020-02-11] MEDS: Metoprolol Tartrate 25 MG Tablet 37.5 MG PO ×3 (05:38→20:55)
[2020-02-11] MEDS: Amiodarone 200 MG Tablet PO (05:38)
[2020-02-11] MEDS: Pantoprazole Sodium 40 MG Tablet PO (05:38)
[2020-02-11] MEDS: dilTIAZem 60 MG Tablet PO ×2 (05:38→17:04)
[2020-02-11] MEDS: Furosemide 20 MG Tablet PO (05:39)
[2020-02-11] MEDS: Iron Polysaccharide Complex 150 MG CAPSULE PO (08:07)
[2020-02-11] MEDS: Magnesium Oxide 400 MG Tablet PO ×2 (08:07→17:04)
[2020-02-11] MEDS: Folic Acid 1 MG Tablet PO (08:07)
[2020-02-11] MEDS: Thiamine Hydrochloride 100 MG Tablet PO (08:07)
[2020-02-11] MEDS: Cyanocobalamin 500 MCG Tablet PO (08:07)
[2020-02-11] MEDS: Smz/Tmp Ds Tablet 1 TABLET PO (08:07)
[2020-02-11 13:02] VITALS: BP 114/55; PULSE 77; RESP 18; TEMP 36.7; O2SAT 100
[2020-02-11 13:05] VITALS: BP 114/55; PULSE 77
[2020-02-11 20:55] VITALS: BP 145/66; PULSE 90
[2020-02-11] MEDS: MELATONIN 10 MG TABLET PO (20:55)
[2020-02-11] MEDS: Atorvastatin Calcium 20 MG Tablet PO (20:55)
[2020-02-11] MEDS: Mirtazapine 15 MG Tablet 7.5 MG PO (20:55)
[2020-02-12 03:38] VITALS: BP 113/76; PULSE 80; RESP 18; TEMP 36.8; O2SAT 97
[2020-02-12] MEDS: Acetaminophen 500 MG Tablet 1000 MG PO (03:40)
[2020-02-12] MEDS: Nystatin Powder 15gm Bottle 1 APPLIC TOPICAL ×2 (03:41→22:06)
[2020-02-12] MEDS: Menthol/Lanolin/Calamine/Znox 113 GM Tube 1 APPLIC TOPICAL ×2 (03:41→22:06)
[2020-02-12] MEDS: Enoxaparin 100 MG/ML Syringe 90 MG SC ×2 (05:17→17:47)
[2020-02-12] MEDS: Umeclidinium Bromide Inhaler 1 PUFF IH (05:17)
[2020-02-12 05:18] VITALS: BP 113/76; PULSE 80
[2020-02-12] MEDS: Metoprolol Tartrate 25 MG Tablet 37.5 MG PO ×3 (05:18→22:07)
[2020-02-12] MEDS: dilTIAZem 60 MG Tablet PO ×2 (05:18→17:46)
[2020-02-12] MEDS: Senna/Docusate Sodium 1 Tablet 2 TABLET PO (05:18)
[2020-02-12] MEDS: Amiodarone 200 MG Tablet PO (05:19)
[2020-02-12] MEDS: Pantoprazole Sodium 40 MG Tablet PO (05:20)
[2020-02-12] MEDS: Furosemide 20 MG Tablet PO (05:20)
[2020-02-12] MEDS: Smz/Tmp Ds Tablet 1 TABLET PO (09:22)
[2020-02-12] MEDS: Iron Polysaccharide Complex 150 MG CAPSULE PO (09:22)
[2020-02-12] MEDS: Thiamine Hydrochloride 100 MG Tablet PO (09:22)
[2020-02-12] MEDS: Folic Acid 1 MG Tablet PO (09:22)
[2020-02-12] MEDS: Magnesium Oxide 400 MG Tablet PO ×2 (09:22→17:46)
[2020-02-12] MEDS: Cyanocobalamin 500 MCG Tablet PO (09:22)
--- NOTE | 2020-02-12 14:04 | NURSING ---
update provided to family today.
[2020-02-12 14:18] VITALS: PULSE 80
[2020-02-12 14:19] VITALS: BP 102/55; PULSE 80; RESP 18; TEMP 36.7; O2SAT 96
[2020-02-12 22:07] VITALS: BP 130/63; PULSE 63
[2020-02-12] MEDS: Atorvastatin Calcium 20 MG Tablet PO (22:07)
[2020-02-12] MEDS: Mirtazapine 15 MG Tablet 7.5 MG PO (22:07)
[2020-02-12] MEDS: MELATONIN 10 MG TABLET PO (22:07)
[2020-02-13] MEDS: Acetaminophen 500 MG Tablet 1000 MG PO ×2 (02:30→21:25)
[2020-02-13] MEDS: oxyCODONE 5 MG Tablet PO (02:30)
[2020-02-13] MEDS: Umeclidinium Bromide Inhaler 1 PUFF IH (04:43)
[2020-02-13] MEDS: Enoxaparin 100 MG/ML Syringe 90 MG SC ×2 (04:44→17:17)
[2020-02-13] MEDS: dilTIAZem 60 MG Tablet PO ×2 (04:45→17:17)
[2020-02-13] MEDS: Pantoprazole Sodium 40 MG Tablet PO (04:47)
[2020-02-13] MEDS: Amiodarone 200 MG Tablet PO (04:48)
[2020-02-13] MEDS: Nystatin Powder 15gm Bottle 1 APPLIC TOPICAL ×2 (04:49→21:05)
[2020-02-13] MEDS: Menthol/Lanolin/Calamine/Znox 113 GM Tube 1 APPLIC TOPICAL ×2 (04:49→21:05)
[2020-02-13 04:50] VITALS: BP 97/48; PULSE 72; RESP 18; TEMP 36.9; O2SAT 94
[2020-02-13 06:30] VITALS: BP 99/54; PULSE 68
[2020-02-13] MEDS: Cyanocobalamin 500 MCG Tablet PO (08:08)
[2020-02-13] MEDS: Smz/Tmp Ds Tablet 1 TABLET PO (08:08)
[2020-02-13] MEDS: Thiamine Hydrochloride 100 MG Tablet PO (08:08)
[2020-02-13] MEDS: Folic Acid 1 MG Tablet PO (08:08)
[2020-02-13] MEDS: Magnesium Oxide 400 MG Tablet PO ×2 (08:10→17:17)
[2020-02-13 08:11] VITALS: BP 114/57; PULSE 69
[2020-02-13] MEDS: Furosemide 20 MG Tablet PO (08:11)
[2020-02-13] MEDS: Metoprolol Tartrate 25 MG Tablet 37.5 MG PO ×3 (08:11→21:11)
[2020-02-13] MEDS: Iron Polysaccharide Complex 150 MG CAPSULE PO (08:12)
[2020-02-13 14:12] VITALS: PULSE 78
[2020-02-13 14:41] VITALS: BP 109/56; PULSE 78; RESP 18; TEMP 36.7; O2SAT 96
--- NOTE | 2020-02-13 15:04 | NURSING ---
Attempted to provide update to family, no answer.
--- NOTE | 2020-02-13 15:09 | NURSING ---
Update provided to family.
[2020-02-13] MEDS: Senna/Docusate Sodium 1 Tablet 2 TABLET PO (17:17)
[2020-02-13] MEDS: Atorvastatin Calcium 20 MG Tablet PO (21:06)
[2020-02-13] MEDS: Mirtazapine 15 MG Tablet 7.5 MG PO (21:07)
[2020-02-13] MEDS: MELATONIN 10 MG TABLET PO (21:08)
[2020-02-13 21:11] VITALS: BP 107/48; PULSE 74
[2020-02-14] MEDS: oxyCODONE 5 MG Tablet PO (01:51)
[2020-02-14 05:13] VITALS: BP 147/63; PULSE 73; RESP 15; TEMP 36.5; O2SAT 95
[2020-02-14] MEDS: Furosemide 20 MG Tablet PO (05:15)
[2020-02-14] MEDS: Polyethylene Glycol 3350 17 GM PACKET PO (05:15)
[2020-02-14] MEDS: Senna/Docusate Sodium 1 Tablet 2 TABLET PO ×2 (05:15→17:11)
[2020-02-14 05:16] VITALS: BP 147/63; PULSE 73
[2020-02-14] MEDS: Metoprolol Tartrate 25 MG Tablet 37.5 MG PO ×3 (05:16→20:56)
[2020-02-14] MEDS: Amiodarone 200 MG Tablet PO (05:16)
[2020-02-14] MEDS: dilTIAZem 60 MG Tablet PO ×2 (05:17→17:12)
[2020-02-14] MEDS: Enoxaparin 100 MG/ML Syringe 90 MG SC ×2 (05:17→17:12)
[2020-02-14] MEDS: Menthol/Lanolin/Calamine/Znox 113 GM Tube 1 APPLIC TOPICAL ×2 (05:17→21:01)
[2020-02-14] MEDS: Pantoprazole Sodium 40 MG Tablet PO (05:18)
[2020-02-14] MEDS: Nystatin Powder 15gm Bottle 1 APPLIC TOPICAL ×2 (05:18→21:00)
[2020-02-14] MEDS: Umeclidinium Bromide Inhaler 1 PUFF IH (05:20)
[2020-02-14] MEDS: Iron Polysaccharide Complex 150 MG CAPSULE PO (08:28)
[2020-02-14] MEDS: Thiamine Hydrochloride 100 MG Tablet PO (08:28)
[2020-02-14] MEDS: Folic Acid 1 MG Tablet PO (08:28)
[2020-02-14] MEDS: Smz/Tmp Ds Tablet 1 TABLET PO (08:28)
[2020-02-14] MEDS: Cyanocobalamin 500 MCG Tablet PO (08:28)
[2020-02-14] MEDS: Magnesium Oxide 400 MG Tablet PO ×2 (08:28→17:12)
[2020-02-14 08:31] VITALS: PULSE 61; RESP 18; O2SAT 95
[2020-02-14 13:51] VITALS: BP 120/53; PULSE 76
[2020-02-14 13:52] VITALS: BP 120/53; PULSE 76; RESP 16; TEMP 36.5; O2SAT 98
[2020-02-14 20:56] VITALS: BP 115/57; PULSE 81
[2020-02-14] MEDS: Acetaminophen 500 MG Tablet 1000 MG PO (20:56)
[2020-02-14] MEDS: MELATONIN 10 MG TABLET PO (20:57)
[2020-02-14] MEDS: Mirtazapine 15 MG Tablet 7.5 MG PO (20:57)
[2020-02-14] MEDS: Atorvastatin Calcium 20 MG Tablet PO (20:58)
[2020-02-15 05:31] VITALS: BP 110/57; PULSE 80; RESP 16; TEMP 36.8; O2SAT 91
[2020-02-15 05:33] VITALS: BP 110/57; PULSE 80
[2020-02-15] MEDS: Metoprolol Tartrate 25 MG Tablet 37.5 MG PO (05:33)
[2020-02-15] MEDS: Pantoprazole Sodium 40 MG Tablet PO (05:33)
[2020-02-15] MEDS: Umeclidinium Bromide Inhaler 1 PUFF IH (05:33)
[2020-02-15] MEDS: Enoxaparin 100 MG/ML Syringe 90 MG SC (05:34)
[2020-02-15] MEDS: Furosemide 20 MG Tablet PO (05:34)
[2020-02-15] MEDS: Amiodarone 200 MG Tablet PO (05:34)
[2020-02-15] MEDS: dilTIAZem 60 MG Tablet PO (05:35)
[2020-02-15] MEDS: Nystatin Powder 15gm Bottle 1 APPLIC TOPICAL (05:39)
[2020-02-15] MEDS: Menthol/Lanolin/Calamine/Znox 113 GM Tube 1 APPLIC TOPICAL (05:39)
[2020-02-15] MEDS: Folic Acid 1 MG Tablet PO (08:28)
[2020-02-15] MEDS: Magnesium Oxide 400 MG Tablet PO (08:28)
[2020-02-15] MEDS: Thiamine Hydrochloride 100 MG Tablet PO (08:28)
[2020-02-15] MEDS: Cyanocobalamin 500 MCG Tablet PO (08:28)
[2020-02-15] MEDS: Smz/Tmp Ds Tablet 1 TABLET PO (08:28)
[2020-02-15] MEDS: Iron Polysaccharide Complex 150 MG CAPSULE PO (08:28)
[2020-02-15] MEDS: Acetaminophen 500 MG Tablet 1000 MG PO (08:32)
== END 2020-02-15 10:35 | disposition home health service (06) | DRG 949 ==
PROVIDERS: Admitting Provider Family Medicine Geriatric Medicine; PCP Family Medicine; Visit Provider Family Medicine Geriatric Medicine
DX: Z48.813 Encounter for surgical aftercare following surgery on the respiratory system (principal); I26.99 Other pulmonary embolism without acute cor pulmonale; C34.11 Malignant neoplasm of upper lobe, right bronchus or lung; I82.409 Acute embolism and thrombosis of unspecified deep veins of unspecified lower extremity; J44.9 Chronic obstructive pulmonary disease, unspecified; I48.91 Unspecified atrial fibrillation; K21.9 Gastro-esophageal reflux disease without esophagitis; I25.10 Atherosclerotic heart disease of native coronary artery without angina pectoris; I10 Essential (primary) hypertension; E78.5 Hyperlipidemia, unspecified; I73.9 Peripheral vascular disease, unspecified; E55.9 Vitamin D deficiency, unspecified; F10.10 Alcohol abuse, uncomplicated; Z87.891 Personal history of nicotine dependence; F32.9 Major depressive disorder, single episode, unspecified; L70.0 Acne vulgaris
CPT/HCPCS: 36415; 71046; 74018; 80048; 81001; 85025; 87086; 87088; 87635; 92523; 94668; 97110; 97116; 97162; 97166; 97530; 97535; G2023; U0002; U0004

== ENCOUNTER 2020-11-21 16:11 | Outpatient (RCR) | payer MEDICARE, SELFPAY ==
[2020-04-19 14:59] VITALS: BMI 28.4
[2020-11-21] MEDS: COVID-19 VACC, MRNA(PFIZER)/PF 30 MCG/0.3 ML SYRINGE IM (18:28)
[2020-12-12] MEDS: COVID-19 VACC, MRNA(PFIZER)/PF 30 MCG/0.3 ML SYRINGE IM (17:58)
== END 2021-02-20 23:59 ==
LOC: IMMUN 16:11
PROVIDERS: PCP Family Medicine; Visit Provider Family Medicine
DX: Z23 Encounter for immunization (principal)
CPT/HCPCS: 0001A; 0002A; 91300

== ENCOUNTER 2022-02-12 20:06 | Inpatient (IN) | payer MEDICARE, SELFPAY ==
[2022-02-12] VITALS (7 sets, daily range): BP systolic 128–164; BP diastolic 65–75; PULSE 95–121; RESP 16–28; TEMP 36.8–37.3; O2SAT 92–98; BMI 31.7; BMI 31.1
--- NOTE | 2022-02-12 20:25 | RAD_ITS ---
INDICATION: injury EXAMINATION/TECHNIQUE: X-RAY - RIGHT XR Tibia/Fibula 2 Views 3 VIEWS COMPARISON: None. FINDINGS: SOFT TISSUES: No soft tissue swelling or gas. Peripheral vascular atherosclerosis. BONES/JOINTS: No acute fracture or malalignment. Mild degenerative changes tibiotalar joint. No sclerotic or destructive changes observed. RAD/Tibia & Fibula 2 Views IMPRESSION: No evidence of traumatic soft tissue or osseous injury. Peripheral atherosclerosis. Mild degenerative changes tibiotalar articulation. Electronically Signed: Jose Alfredo Pollock DO at 21:40 EDT ,
--- NOTE | 2022-02-12 20:27 | EKG12_ITS ---
Test Reason : WEAKNESS Blood Pressure : / mmHG Vent. Rate : 097 BPM Atrial Rate : 097 BPM P-R Int : 170 ms QRS Dur : 086 ms QT Int : 340 ms P-R-T Axes : 023 032 043 degrees QTc Int : 431 ms Sinus rhythm with Premature atrial complexes Otherwise normal ECG Confirmed by PRASHANTH JORGENSEN, PAULETTE ([id number]), writer editor LUIS MANUEL ASHLEY ([id number]) on 02/13/2022 9:03:56 AM Referred By: Confirmed By:PAULETTE ALFORD MD
--- NOTE | 2022-02-12 20:28 | EDS_ITS ---
HPI History of Present Illness Chief Complaint: Weakness Informant: patient, spouse/S.O., family and EMS Narrative Narrative: 71-year-old male arriving to the emergency department generalized weakness. Patient states that he has been battling what he describes as dizziness/lightheadedness for a long time. He states that today it seemed worse than normal. He notes some associated shortness of breath especially with exertion this evening he was walking from the kitchen back to the living room when his legs got acutely weak which is happened before and he fell to the ground injuring his right foot and ankle. He states that he really did not feel like eating much today and has felt weaker than normal. He typically uses a cane or a walker to get around. He is on apixaban. He is got a history of peripheral vascular disease with claudication as well as A. fib and coronary artery disease. [facility] Medical History (Updated 02/12/22 @ 21:[address] Piter Harrell, DO) Aberrant right subclavian artery Alcohol abuse Atherosclerotic heart disease of [place] coronary artery without angina pectoris Atrial fibrillation with rapid ventricular response (01/13/20) Bladder cancer Chronic bilateral deep vein thrombosis (DVT) of femoral veins (01/06/20) COPD (chronic obstructive pulmonary disease) Debility Deep vein thrombosis Essential (primary) hypertension GERD (gastroesophageal reflux disease) History of pulmonary embolus (PE) (01/06/20) Hyperlipidemia Hyponatremia Leukopenia Lung cancer Nicotine dependence Pancoast tumor of right lung Paroxysmal atrial fibrillation Peripheral arterial occlusive disease Peripheral vascular disease of extremity with claudication Postoperative atrial fibrillation (01/13/20) Rotator cuff tear Supraventricular tachycardia Home Medications cholecalciferol (vitamin D3) 2,000 unit PO DAILY 10/09/19 [History Last Taken Unknown] cyanocobalamin (vitamin B-12) 500 mcg PO DAILY@0800 10/09/19 [History Last Taken Unknown] diltiazem HCl 60 mg PO BID 10/09/19 [History Last Taken Unknown] furosemide 40 mg PO DAILY 10/09/19 [History Last Taken Unknown] omeprazole 40 mg PO QODAY 10/09/19 [History Last Taken Unknown] albuterol sulfate 2 puff INHALATION Q4H PRN PRN #1 inhaler 02/10/20 [Rx Last Taken Unknown] apixaban 5 mg PO BID #60 tab 02/10/20 [Rx Last Taken Unknown] atorvastatin 20 mg PO QHS #30 tab 02/10/20 [Rx Last Taken Unknown] polysaccharide iron complex 150 mg PO DAILYCM #30 cap 02/10/20 [Rx Last Taken Unknown] thiamine HCl (vitamin B1) 100 mg PO DAILYCM #30 tab 02/10/20 [Rx Last Taken Unknown] folic acid 800 mcg tablet 0.8 mg PO DAILY 04/19/20 [History Last Taken Unknown] [id number] [Trelegy Ellipta] 1 ea INHALATION DAILY 02/12/22 [History Last Taken Unknown] sulfamethoxazole-trimethoprim 1 tab PO DAILY 02/12/22 [History Last Taken Unknown] Allergy/AdvReac Type Severity Reaction Status Date / Time No Known Allergies Allergy Verified 02/12/22 20:07 Surgical History History of bladder surgery (1995) History of pneumonectomy (01/11/20) History of total adrenalectomy S/P insertion of IVC (inferior vena caval) filter (01/05/20) Social History Smoking Status: Former smoker quit date: 07/02/15 pack-years: 52 alcohol intake: current alcohol intake frequency: 3 or more drinks per day ROS ROS ED ROS Narrative Dizziness/lightheadedness and generalized weakness Constitutional Constitutional ED: Denies chills, fever(s) or weight loss Eyes Eyes: Denies change in vision or diplopia ENT ENT ED: Denies ear pain, rhinorrhea or sore throat Cardiovascular Cardiovascular: Denies chest pain, orthopnea, palpitations or racing heartbeat Respiratory/Chest Respiratory/Chest: Denies cough, dyspnea or orthopnea Gastrointestinal Gastrointestinal: Reports other Details: Decreased appetite ; Denies abdominal pain, diarrhea, nausea or vomiting Genitourinary Genitourinary ED: Denies dysuria, hematuria or urinary frequency Musculoskeletal Musculoskeletal: Reports other Details: Right foot and ankle pain ; Denies arth ralgias or myalgias Integumentary Denies abscess or rash Neurologic Neurologic: Denies headache(s) or weakness Psychiatric Psychiatric: Denies anxiety, depression, suicidal ideation or suicidal thoughts Endocrine Endocrinology: Denies polydipsia, polyphagia or polyuria Allergic/Immunologic Allergic/Immunologic ED: Denies mouth swelling, tongue swelling or urticaria EXAM Physical Exam Const Vital Signs: 02/12/22 20:07 02/12/22 20:09 02/12/22 21:13 Temperature 99.1 F Temperature Source Temporal Pulse Rate 111 H 111 H Pulse Rate [Lying] 102 H Pulse Rate [Sitting (for 1 minute prior to obtaining)] 107 H Pulse Rate [Standing (for 1 minute prior to obtaining)] 115 H Respiratory Rate 16 18 Blood Pressure 140/70 H 140/70 H Blood Pressure [Lying] 142/70 H Blood Pressure [Sitting (for 1 minute prior to obtaining)] 144/67 H Blood Pressure [Standing (for 1 minute prior to obtaining)] 164/75 H Blood Pressure Mean 93 93 Blood Pressure Mean [Lying] 94 Blood Pressure Mean [Sitting (for 1 minute prior to obtaining)] 92 Blood Pressure Mean [Standing (for 1 minute prior to obtaining)] 104 Pulse Ox 94 94 Oxygen Delivery Method Room Air Room Air Oxygen Flow Rate (L/min) 02/12/22 21:27 Temperature Temperature Source Pulse Rate 112 H Pulse Rate [Lying] Pulse Rate [Sitting (for 1 minute prior to obtaining)] Pulse Rate [Standing (for 1 minute prior to obtaining)] Respiratory Rate 21 H Blood Pressure 164/75 H Blood Pressure [Lying] Blood Pressure [Sitting (for 1 minute prior to obtaining)] Blood Pressure [Standing (for 1 minute prior to obtaining)] Blood Pressure Mean 104 Blood Pressure Mean [Lying] Blood Pressure Mean [Sitting (for 1 minute prior to obtaining)] Blood Pressure Mean [Standing (for 1 minute prior to obtaining)] Pulse Ox 92 Oxygen Delivery Method Nasal Cannula Oxygen Flow Rate (L/min) 2 Positive well nourished, well developed and obese General Appearance ED: well developed Nutritional Appearance: obese HEENT Reports normocephalic, head/scalp atraumatic, TM's clear and moist mucous membranes Negative for trauma Tympanic Membrane ED: Yes TM's clear Eyes PERRL and EOMs intact bilaterally Neck no lymphadenopathy, supple and no JVD Resp Effort and Inspection: tachypneic Auscultation: wheezes expiratory wheezes and throughout Cardio regular rate and no murmurs Rate: tachycardic GI normal to inspection, nondistended, normoactive bowel sounds and non-tender Palpation: soft Back/Spine no CVA tenderness and normal ROM Extremity Extremity Narrative: Patient reports tenderness to palpation over the fibular head and the lateral malleolus of the right lower extremity. No fifth metatarsal pain. Negative Friedman's test. Neuro oriented x3 and CN's II-XII intact bilaterally Sensorium / Orientation: alert Motor Exam: strength 5/5 throughout Psych mental status grossly normal Mood & Affect: Negative for depressed or tearful Skin no rashes or lesions noted and no wounds MDM MDM MDM Narrative Medical decision making narrative: My interpretation of the plain films of the right foot is no acute fracture. My interpretation of the plain films of the tibia and fibula is no acute fracture. My interpretation of the chest x-ray is no acute process chronic changes noted. White count is 11.3 hemoglobin 12.9. Creatinine 1.76 with BUN of 27 which is above baseline. Troponin is negative. During orthostatics patient was noted to be very tachypneic while attempting to stand. He dropped his pulse ox into 88 and 89% and had prolonged time until he became normotensive despite oxygen. He received breathing treatments and Solu- Medrol. Patient really unable to walk more than a couple steps. Both weakness and hypoxia statin. He has a significant fall risk requiring at least 2 staff members on his side. Family is unable to get him up on their own at home. Thinks reasonable to bring him in and provide hydration tonight as well as breathing treatments and steroids. Will reassess in the morning. Lab Data Attestation: I reviewed the patient's lab results. Labs: Laboratory Results - last 24 hr 02/12/22 02/12/22 20:00 20:00 WBC 11.3 H RBC 4.00 L Hgb 12.9 L Hct 38.5 L MCV 96.3 H MCH 32.3 H MCHC 33.5 RDW Std Deviation 45.0 H RDW Coeff of Ean 12.7 Plt Count 108 L MPV 11.1 Immature Gran % (Auto) 0.600 Neut % (Auto) 89.4 H Lymph % (Auto) 4.9 L Logan % (Auto) 4.9 Eos % (Auto) 0.0 Baso % (Auto) 0.2 Absolute Neuts (auto) 10.1 H Absolute Lymphs (auto) 0.55 L Nucleated RBC % 0 Differential Comment SEE COMMENT Platelet Estimate MOD DEC RBC Morphology N CHROM Anisocytosis RARE Macrocytosis RARE Sodium 134 L Potassium 4.2 Chloride 102 Carbon Dioxide 21.0 Anion Gap 11 BUN 27 H Creatinine 1.76 H Estim Creat Clear Calc 36.16 Est GFR (MDRD) Af Amer 49 L Est GFR (MDRD) Non-Af 41 L BUN/Creatinine Ratio 15.3 Glucose 108 H Calcium 8.6 Total Bilirubin 0.70 AST 20 ALT 19 Alkaline Phosphatase 87 Troponin I High Sens < 3 L Total Protein 7.2 Albumin 3.5 Globulin 3.7 Albumin/Globulin Ratio 0.9 Radiography Diagnostic Testing: Clinical Impression(s) from Imaging Studies Tibia/Fibula X-Ray 02/12/22 20:25 IMPRESSION: No evidence of traumatic soft tissue or osseous injury. Peripheral atherosclerosis. Mild degenerative changes tibiotalar articulation. Electronically Signed: Jose Alfredo Pollock DO at 21:40 EDT , Foot X-Ray 02/12/22 20:50 IMPRESSION: No evidence of acute traumatic soft tissue shadows or osseous injury. Degenerative changes first metatarsal-phalangeal joint and tibiotalar joint. Peripheral atherosclerosis. Electronically Signed: Jose Alfredo Pollock DO at 21:39 EDT , EKG Initial EKG: Attestation: I personally reviewed and interpreted this EKG as follows: Comments: Sinus rhythm with a ventricular rate of 97 bpm. PACs noted. Discharge Plan Dx/Rx/DC Orders Clinical Impression: Right ankle sprain, Acute exacerbation of chronic obstructive pulmonary disease, Generalized weakness, Fall, Acute dehydration Disposition Disposition: Acute Care Hospital [facility]
[2022-02-12 20:35] LABS: Absolute Lymphocyte Count 0.55 X10^3/uL (0.83-4.51); Absolute Neutrophil Count 10.1 X10^3/uL (2.0-7.7); Basophil# 0.02 X10^3/uL; Basophil% 0.2 % (0-1); Hematocrit 38.5 % (40-54); Hemoglobin 12.9 g/dL (13.0-16.5); Lymphocyte # 0.55 X10^3/ul (0.83-4.51); Lymphocyte % 4.9 % (19-41); Mean Corp Hgb Conc 33.5 g/dL (32-36); Mean Corpuscular Hgb 32.3 pg (27.0-32.0); Mean Corpuscular Volume 96.3 fL (80-94); Mean Platelet Vol. 11.1 fl (6.2-12.0); Monocyte# 0.55 X10^3/uL; Monocyte% 4.9 % (0-10); NRBC Flagged by Analyzer 0 % (0-5); Neutrophil # 10.14 X10^3/uL (2.7-7.7); Neutrophil % 89.4 % (47-70); POSITIVE DIFFERENTIAL YES; Platelet Count 108 K/mm3 (150-450); RBC Distribution Width CV 12.7 % (11.6-14.6); White Blood Count 11.3 K/mm3 (4.4-11.0)
[2022-02-12] MEDS: 0.9% Normal Saline 1,000 ML 1000 ML IV (20:42)
--- NOTE | 2022-02-12 20:50 | RAD_ITS ---
INDICATION: injury EXAMINATION/TECHNIQUE: X-RAY - RIGHT XR Foot Min 3 Views 3 VIEWS COMPARISON: 10/09/2019 right ankle x-rays. FINDINGS: SOFT TISSUES: No soft tissue swelling or gas. Peripheral vascular atherosclerosis demonstrated. BONES/JOINTS: No acute fracture or malalignment. Moderate degenerative changes first metatarsal-phalangeal joint. There are mild degenerative changes of the tibiotalar articulation. No sclerotic or destructive changes observed. RAD/Foot min 3 Views IMPRESSION: No evidence of acute traumatic soft tissue shadows or osseous injury. Degenerative changes first metatarsal-phalangeal joint and tibiotalar joint. Peripheral atherosclerosis. Electronically Signed: Jose Alfredo Pollock DO at 21:39 EDT ,
[2022-02-12 20:55] LABS: Differential Indicated SCAN CRITERIA MET
[2022-02-12 20:56] LABS: ALB/GLOB Ratio 0.9 RATIO (0.9-2.4); AST(SGOT) 20 U/L (15-37); Alanine Aminotransfer ALT/SGPT 19 U/L (16-61); Albumin, Serum 3.5 g/dL (3.2-5.0); Alkaline Phosphatase 87 U/L (45-117); Anion Gap 11 (5-15); BUN 27 mg/dL (7-18); BUN/Creat Ratio 15.3 RATIO (10-20); Calcium,Total 8.6 mg/dL (8.5-10.1); Chloride 102 mmol/L (98-107); Creatinine, Serum 1.76 mg/dL (0.70-1.30); EST Glomerular Filtration Rate 41 mL/min (>60); Est Glom Filt Rate - Afr Amer 49 mL/min (>60); Estimated Creatinine Clearance 36.16 ml/min; Globulin 3.7 g/dL (2.2-4.2); Glucose 108 mg/dL (74-106); Potassium 4.2 mmol/L (3.5-5.1); Protein, Total 7.2 g/dL (6.4-8.2); Sodium Level 134 mmol/L (136-145); Troponin-I HS < 3 pg/mL (3.0-78.0)
[2022-02-12 21:00] LABS: Anisocytosis RARE; Macrocytosis RARE; Platelet Estimate MOD DEC (ADEQ); Red Cell Morphology N CHROM NORMAL (NORM C&C)
--- NOTE | 2022-02-12 21:24 | RAD_ITS ---
INDICATION: dyspnea EXAMINATION/TECHNIQUE: X-RAY - XR Chest 1 View COMPARISON: 01/27/2020 chest x-ray. FINDINGS: LINES/DEVICES: Multiple surgical clips right base of the neck and tiny sutures in the right lung apex. LUNGS: Postsurgical changes right apex with absent first, 3, right RIBS and secondary parenchymal volume loss. Line of tiny surgical tristan right lung apex. No apical mass lesion visible. There is a right-sided pleural effusion, new compared to prior exam. There are some interstitial markings in the right lower lobe which may represent scarring however minimally prominent interstitial markings left lung base are also present. Scattered be indicative of interstitial lung disease, interstitial edema or atelectasis/scarring. MEDIASTINUM AND CARDIOVASCULAR STRUCTURES: Normal size and contour of the cardiomediastinal silhouette. No evidence of pulmonary vascular congestion. BONES AND SOFT TISSUES: Postsurgical changes as above. RAD/Chest 1 View (Portable) IMPRESSION: 1. Extensive postsurgical changes right lung apex and thorax. 2. New right pleural effusion. 3. Increased interstitial markings in the lung bases, right greater than left. While some of this is suspected represent postsurgical changes, on the right, additional pathologies suspected to: Interstitial edema, interstitial lung disease or atelectasis/scarring. Electronically Signed: Jose Alfredo Pollock DO at 22:31 EDT ,
[2022-02-12] MEDS: Albuterol 2.5 MG/3 ML VIAL.NEB. INHALATION ×2 (21:54)
[2022-02-12] MEDS: Ipratropium/Albuterol Sulfate 3 ML AMPUL.NEB INHALATION (21:54)
[2022-02-12] MEDS: MethylPREDNISolone 125 MG/2 ML Vial IV (21:54)
--- NOTE | 2022-02-12 22:01 | PCM.HP.STD ---
HPI - General General Date of Admission: 02/12/22 Date of Service: 02/12/22 Chief Complaint: Weakness, falls, dyspnea. HPI Narrative The patient is a 71 y/o M w/ PMHx: Chronic macrocytic anemia/AOCD, Hx bladder CA s/p resection with studor pouch without radiation/chemotherapy, GERD, COPD/Asthma, HTN, HLD, Hx SVT, EtOH abuse, PVD w/ chronic claudication, Hx Pancoast Tumor s/p resection 12/2019 treated additionally with cisplatin and etoposide, Hx VTE (PE, DVT) s/p IVC filter placement, PAF, Former tobacco use who presents to the [facility] ED on 02/12/22 with history of generalized weakness with ongoing chronic unchanged lightheadedness/dizziness although felt mildly worsened over the last several days with episode of acute weakness with fall with R foot and ankle discomfort but no head trauma with recent decreased intake prompting ED evaluation. He normally uses a cane/walker to ambulate. He does admit to recent dyspnea, worse with exertion and expiratory wheezing over the last 48 hours. While in the emergency room during orthostatics patient became significantly tachypneic with wheezing and was administered aerosols with concern for COPD exacerbation. Work-up in the ED included T 99.1, heart rate 111, BP 140/70, respiratory rate 16, 94% on room air, orthostatic vitals with significant onset tachypnea with attempted standing with pulse oximeter decrease to 88-89 percent CBC with WC 11.3, hemoglobin 12.9, platelet 108 with left shift and lymphopenia, CMP with sodium 134, BUN/creat 27/1.76, glucose 108 otherwise [place] profile not marked appearing, troponin less than 3, plain film of the right ankle and right tib-fib with no acute evidence of traumatic soft tissue shadows or osseous injury with degenerative changes and peripheral atherosclerosis. In the ED patient ministered normal saline fluid as well as Solu-Medrol 125 mg IV x1 and DuoNeb therapy. [facility] Medical History (Updated 02/12/22 @ 21:[address] Piter Harrell, ) Aberrant right subclavian artery Alcohol abuse Atherosclerotic heart disease of [place] coronary artery without angina pectoris Atrial fibrillation with rapid ventricular response (01/13/20) Bladder cancer Chronic bilateral deep vein thrombosis (DVT) of femoral veins (01/06/20) COPD (chronic obstructive pulmonary disease) Debility Deep vein thrombosis Essential (primary) hypertension GERD (gastroesophageal reflux disease) History of pulmonary embolus (PE) (01/06/20) Hyperlipidemia Hyponatremia Leukopenia Lung cancer Nicotine dependence Pancoast tumor of right lung Paroxysmal atrial fibrillation Peripheral arterial occlusive disease Peripheral vascular disease of extremity with claudication Postoperative atrial fibrillation (01/13/20) Rotator cuff tear Supraventricular tachycardia Home Medications cholecalciferol (vitamin D3) 2,000 unit PO DAILY 10/09/19 [History Last Taken Unknown] cyanocobalamin (vitamin B-12) 500 mcg PO DAILY@0800 10/09/19 [History Last Taken Unknown] diltiazem HCl 60 mg PO BID 10/09/19 [History Last Taken Unknown] furosemide 40 mg PO DAILY 10/09/19 [History Last Taken Unknown] omeprazole 40 mg PO QODAY 10/09/19 [History Last Taken Unknown] albuterol sulfate 2 puff INHALATION Q4H PRN PRN #1 inhaler 02/10/20 [Rx Last Taken Unknown] apixaban 5 mg PO BID #60 tab 02/10/20 [Rx Last Taken Unknown] atorvastatin 20 mg PO QHS #30 tab 02/10/20 [Rx Last Taken Unknown] polysaccharide iron complex 150 mg PO DAILYCM #30 cap 02/10/20 [Rx Last Taken Unknown] thiamine HCl (vitamin B1) 100 mg PO DAILYCM #30 tab 02/10/20 [Rx Last Taken Unknown] folic acid 800 mcg tablet 0.8 mg PO DAILY 04/19/20 [History Last Taken Unknown] [id number]-[id number]-[id number] [Trelegy Ellipta] 1 ea INHALATION DAILY 02/12/22 [History Last Taken Unknown] sulfamethoxazole-trimethoprim 1 tab PO DAILY 02/12/22 [History Last Taken Unknown] Allergy/AdvReac Type Severity Reaction Status Date / Time No Known Allergies Allergy Verified 02/12/22 20:07 Family History (Updated 02/12/22 @ 22:[address] Jyoti Cowan MD) Father CVA (cerebral vascular accident) Mother Crohn's disease Surgical History History of bladder surgery (1995) History of pneumonectomy (01/11/20) History of total adrenalectomy S/P insertion of IVC (inferior vena caval) filter (01/05/20) Social History (Updated 02/12/22 @ 22:[address] Jyoti Cowan MD) household members: spouse Smoking Status: Former smoker quit date: 07/02/15 pack-years: 52 how long ago did patient quit smoking: Quit ~ 8 years prior, smoked >1 ppd since youth until quit. alcohol intake: current alcohol intake frequency: 3 or more drinks per day details: Drinks 3-4 beers daily, 12 ounce. substance use type: does not use ROS ROS Narrative Admission Review of Systems: CONSTITUTIONAL: No weight loss, fever, chills,+ weakness or fatigue. HEENT: Eyes: No visual loss, blurred vision, double vision or yellow sclerae. Ears, Nose, Throat: No hearing loss, sneezing, congestion, runny nose or sore throat. SKIN: No rash or itching, lesions, wounds. CARDIOVASCULAR: + LH/dizziness. No chest pain, chest pressure or chest discomfort, palpitations, edema, orthopnea, syncopal events. RESPIRATORY: + Shortness of breath, cough without marked sputum, wheezing, No hemoptysis. GASTROINTESTINAL: No anorexia, nausea, vomiting or diarrhea, abdominal pain, melena, BRBPR. GENITOURINARY: No dysuria, frequency, urgency or retention. NEUROLOGICAL: + LH/Dizziness. No headache, syncope, paralysis, ataxia, numbness or tingling in the extremities, focal weakness, change in bowel or bladder control, seizure. MUSCULOSKELETAL: + muscle, back pain, joint pain or stiffness. HEMATOLOGIC: + anemia, bleeding or bruising. LYMPHATICS: No enlarged nodes. No history of splenectomy. PSYCHIATRIC: No history of depression or anxiety. ENDOCRINOLOGIC: No reports of sweating, cold or heat intolerance. No polyuria or polydipsia. ALLERGIES: + history of hives, eczema or rhinitis. Vital Signs Vital Signs Vital Signs: 02/12/22 20:07 02/12/22 20:09 02/12/22 21:13 Temperature 99.1 F Temperature Source Temporal Pulse Rate 111 H 111 H Pulse Rate [Lying] 102 H Pulse Rate [Sitting (for 1 minute prior to obtaining)] 107 H Pulse Rate [Standing (for 1 minute prior to obtaining)] 115 H Respiratory Rate 16 18 Blood Pressure 140/70 H 140/70 H Blood Pressure [Lying] 142/70 H Blood Pressure [Sitting (for 1 minute prior to obtaining)] 144/67 H Blood Pressure [Standing (for 1 minute prior to obtaining)] 164/75 H Blood Pressure Mean 93 93 Blood Pressure Mean [Lying] 94 Blood Pressure Mean [Sitting (for 1 minute prior to obtaining)] 92 Blood Pressure Mean [Standing (for 1 minute prior to obtaining)] 104 Pulse Ox 94 94 Oxygen Delivery Method Room Air Room Air Oxygen Flow Rate (L/min) 02/12/22 21:27 Temperature Temperature Source Pulse Rate 112 H Pulse Rate [Lying] Pulse Rate [Sitting (for 1 minute prior to obtaining)] Pulse Rate [Standing (for 1 minute prior to obtaining)] Respiratory Rate 21 H Blood Pressure 164/75 H Blood Pressure [Lying] Blood Pressure [Sitting (for 1 minute prior to obtaining)] Blood Pressure [Standing (for 1 minute prior to obtaining)] Blood Pressure Mean 104 Blood Pressure Mean [Lying] Blood Pressure Mean [Sitting (for 1 minute prior to obtaining)] Blood Pressure Mean [Standing (for 1 minute prior to obtaining)] Pulse Ox 92 Oxygen Delivery Method Nasal Cannula Oxygen Flow Rate (L/min) 2 Weight Weight: 208 lb 12.444 oz Body Mass Index (BMI) 31.7 Physical Exam Narrative Physical Examination: General: Awake, alert, oriented x 3 and cooperative, seated upright in the ED bed, fatigued, notes feeling improved after aerosol. Skin: Normal color, normal turgor, no icterus, no cyanosis except bilateral lower extremity venous stasis skin changes. HEENT: AT/NC, EOMI, PERRLA, mildly dry MM, no carotid bruits or JVD noted. Lungs: Diminished, greater bases, end expiratory wheezing, mildly increased respiratory rate but no distress, no rales or rhonchi. Heart: Currently mildly tachycardic with rhythm; no gallop, rub audible. Abdomen: Soft, obese, NTTP, ND, distant mildly hyperactive BS, no HSM. Extremities: No cyanosis, no clubbing, mild right ankle tenderness to palpation with mild swelling. Neurological: Patient awake, alert, oriented as noted, cognitive function intact; pupils equally reactive to light and accommodation, cranial nerves II-XII grossly normal, moving all 4 extremities, no focal deficits, strength moderately to severely global decrease secondary to acute presentation. Psychiatric: Affect appears fatigued, no acute evidence of depressive or anxiety feelings. Results Lab / Micro Data Result Diagrams: 02/12/22 20:00 02/12/22 20:00 Labs: Laboratory Results - last 24 hr 02/12/22 20:00: WBC 11.3 H, RBC 4.00 L, Hgb 12.9 L, Hct 38.5 L, MCV 96.3 H, MCH 32.3 H, MCHC 33.5, RDW Std Deviation 45.0 H, RDW Coeff of Ean 12.7, Plt Count 108 L, MPV 11.1, Immature Gran % (Auto) 0.600, Neut % (Auto) 89.4 H, Lymph % (Auto) 4.9 L, [place] % (Auto) 4.9, Eos % (Auto) 0.0, Baso % (Auto) 0.2, Absolute Neuts (auto) 10.1 H, Absolute Lymphs (auto) 0.55 L, Nucleated RBC % 0, Differential Comment SEE COMMENT, Platelet Estimate MOD DEC, RBC Morphology N CHROM, Anisocytosis RARE, Macrocytosis RARE 02/12/22 20:00: Sodium 134 L, Potassium 4.2, Chloride 102, Carbon Dioxide 21.0, Anion Gap 11, BUN 27 H, Creatinine 1.76 H, Estim Creat Clear Calc 36.16, Est GFR (MDRD) Af Amer 49 L, Est GFR (MDRD) Non-Af 41 L, BUN/Creatinine Ratio 15.3, Glucose 108 H, Calcium 8.6, Total Bilirubin 0.70, AST 20, ALT 19, Alkaline Phosphatase 87, Troponin I High Sens < 3 L, Total Protein 7.2, Albumin 3.5, Globulin 3.7, Albumin/Globulin Ratio 0.9 Radiology Impression Tibia/Fibula X-Ray 02/12/22 20:25 IMPRESSION: No evidence of traumatic soft tissue or osseous injury. Peripheral atherosclerosis. Mild degenerative changes tibiotalar articulation. Electronically Signed: Jose Alfredo Pollock DO at 21:40 EDT , Foot X-Ray 02/12/22 20:50 IMPRESSION: No evidence of acute traumatic soft tissue shadows or osseous injury. Degenerative changes first metatarsal-phalangeal joint and tibiotalar joint. Peripheral atherosclerosis. Electronically Signed: Jose Alfredo Pollock, DO at 21:39 EDT , Assessment & Plan Assessment/Plan (1) Acute exacerbation of chronic obstructive pulmonary disease: PLAN: The patient is a 71 y/o M w/ PMHx: Chronic macrocytic anemia/AOCD, Hx bladder CA s/p resection with studor pouch without radiation/chemotherapy, GERD, COPD/Asthma, HTN, HLD, Hx SVT, EtOH abuse, PVD w/ chronic claudication, Hx Pancoast Tumor s/p resection 12/2019 treated additionally with cisplatin and etoposide, Hx VTE (PE, DVT) s/p IVC filter placement, PAF, Former tobacco use who presents to the [facility] ED on 02/12/22 with history of generalized weakness with ongoing chronic unchanged lightheadedness/dizziness although felt mildly worsened over the last several days with episode of acute weakness with fall with R foot and ankle discomfort but no head trauma with recent decreased intake prompting ED evaluation. #1. Debility, weakness, failure to thrive in adult with mechanical fall with R ankle acute sprain suspected secondary to [place] on chronic COPD exacerbation w/ Acute hypoxia and #2, compounded by other medical history as noted: We will admit to medical surgical floor, maintain on oxygen with wean as tolerated to room air, continue ATC duonebs, PRN albuterol, IV methylprednisolone with prednisone transition, HOB, IS parameters, hold on antibiotic therapy pending procalcitonin, respiratory panel and sputum culture requested. PT/OT/CM consultations for discharge planning, maintain on fall precautions. Continue RLE DAREN wrap. #2. Acute Renal Insufficiency on Chronic Kidney Disease Stage II: Admission BUN/Cr 27/1.76, baseline renal function 0.8-1.0, repeat BMP in AM, continue judicious hydration. If renal function worsens will obtain FeNa and renal ultrasound. #3. History of Pancoast tumor: Status post resection 12/2019, treated additionally with cisplatin and etoposide, following with [facility], encourage continued outpatient follow-up. #4. History of bladder cancer: Status post resection with Ailyn pouch, no radiation or chemotherapy, considered in remission. #5. Nonobstructive CAD: We will continue apixaban, statin, not on DAREN inhibitor/ARB nor specifically beta-brenna therapy as on diltiazem regimen. #6. Chronic COPD/asthma: We will temporarily hold patient home inhalers and transition to ATC DuoNeb therapy, as needed albuterol, encourage head of bed and I-S. #7. History VTE: History of PE, DVT, status post prior IVC filter placement prior to Pancoast tumor resection, will continue patient home anticoagulation with apixaban. #8. PAF, history SVT: Noted perioperatively following Pancoast tumor resection, will continue patient home diltiazem regimen as well as apixaban. #9. PVD: Patient with PVD with chronic claudication, will continue apixaban, statin, hypertensive regimen as noted. #10. Hypertension: Continue home regimen including diltiazem, Lasix with hold parameters as needed, PRN hydralazine. #11. Hyperlipidemia: Continue home statin therapy. #12. GERD: We will continue patient on PPI. #13. Chronic anemia, macrocytic, AOCD/Fe deficiency anemia: Admission hemoglobin 12.9, prior baseline in 2020 was 8-9, will continue to trend #14. EtOH Abuse: Patient notes routine consumption of 3-4 beers per day. Will maintain on CIWA protocol, MVI, thiamine and folic acid. Patient notes intention of continued EtOH usage. #15. DVT prophylaxis: SCDs, continue home apixaban regimen. #16. CODE status: Patient HCPOA is his who is and living will is potentially in place but patient is unsure. Discussed CODE status at length including difference between FULL code, DNR-CCA and DNR-CC status. Following discussions about the differences in these status, requested Full Code status. Advanced Care Planning Face to Face Time: 16 minutes. Charges/Coding Visit Charges Inpatient E&M: 16737 Init Hosp L3 Procedures Hospitalists Procedures: 49649 Advncd Care Plan 30 Min
[2022-02-12 22:37] LABS: Procalcitonin 0.28 ng/mL (0.00-0.09)
--- NOTE | 2022-02-12 23:04 | CPS ---
One Duoneb and two albuterol aerosols given total
--- NOTE | 2022-02-12 23:24 | NURSING ---
will bring in pt's med list february 13
[2022-02-13] VITALS (7 sets, daily range): BP systolic 128–147; BP diastolic 65–77; PULSE 84–109; RESP 18–22; TEMP 36.4–36.9; O2SAT 93–100
[2022-02-13] MEDS: 0.9% Normal Saline 1,000 ML 100 ML IV (00:02)
[2022-02-13 06:05] LABS: Absolute Lymphocyte Count 0.16 X10^3/uL (0.83-4.51); Absolute Neutrophil Count 8.6 X10^3/uL (2.0-7.7); Basophil# 0.01 X10^3/uL; Basophil% 0.1 % (0-1); Hematocrit 32.6 % (40-54); Lymphocyte # 0.16 X10^3/ul (0.83-4.51); Lymphocyte % 1.8 % (19-41); Mean Corp Hgb Conc 33.7 g/dL (32-36); Mean Corpuscular Hgb 32.6 pg (27.0-32.0); Mean Corpuscular Volume 96.7 fL (80-94); Mean Platelet Vol. 11.6 fl (6.2-12.0); Monocyte# 0.21 X10^3/uL; Monocyte% 2.3 % (0-10); NRBC Flagged by Analyzer 0 % (0-5); Neutrophil # 8.63 X10^3/uL (2.7-7.7); Neutrophil % 95.2 % (47-70); POSITIVE COUNT YES; POSITIVE DIFFERENTIAL YES; Platelet Count 93 K/mm3 (150-450); RBC Distribution Width CV 12.7 % (11.6-14.6); RBC Distribution Width SD 44.3 fl (35.1-43.9); Red Blood Count 3.37 M/mm3 (4.6-6.2); White Blood Count 9.1 K/mm3 (4.4-11.0)
[2022-02-13 06:06] LABS: Differential Indicated SCAN CRITERIA MET
[2022-02-13] MEDS: 0.9% Saline Lock 10 ML Syringe IV ×2 (06:07→15:59)
[2022-02-13 06:25] LABS: Macrocytosis 1+
[2022-02-13 06:31] LABS: ALB/GLOB Ratio 0.9 RATIO (0.9-2.4); AST(SGOT) 16 U/L (15-37); Alanine Aminotransfer ALT/SGPT 17 U/L (16-61); Albumin, Serum 2.8 g/dL (3.2-5.0); Alkaline Phosphatase 70 U/L (45-117); Anion Gap 6 (5-15); BUN 24 mg/dL (7-18); Calcium,Total 7.9 mg/dL (8.5-10.1); Chloride 107 mmol/L (98-107); Creatinine, Serum 1.33 mg/dL (0.70-1.30); EST Glomerular Filtration Rate 56 mL/min (>60); Est Glom Filt Rate - Afr Amer 68 mL/min (>60); Estimated Creatinine Clearance 47.86 ml/min; Globulin 3.2 g/dL (2.2-4.2); Glucose 174 mg/dL (74-106); Potassium 3.6 mmol/L (3.5-5.1); Sodium Level 138 mmol/L (136-145)
[2022-02-13] MEDS: Ipratropium/Albuterol Sulfate 3 ML AMPUL.NEB INHALATION ×3 (07:21→19:21)
--- NOTE | 2022-02-13 07:39 | PN.HOSP_ITS ---
Subjective Subjective Follow up for COPD exacerbation, generalized weakness and fall. Objective Data Objective Data Vital Signs: Vital Signs Temp Pulse Resp BP Pulse Ox 97.5 F L 90 18 128/65 H 93 02/13/22 05:30 02/13/22 07:22 02/13/22 07:22 02/13/22 05:30 02/13/22 07:22 Oxygen Flow Rate (L/min) 2 Oxygen Delivery Method Room Air Weight: 202 lb 6.15 oz Body Mass Index (BMI) 31.1 Intake & Output: Intake and Output for Last 24 Hours 02/11/22 02/12/22 02/13/22 23:59 23:59 23:59 Intake Total 1000 / 1000 Balance 1000 / 1000 Lab / Micro Data Result Diagrams: 02/13/22 04:25 02/13/22 04:25 Labs: Laboratory Results - last 24 hr 02/12/22 20:00: WBC 11.3 H, RBC 4.00 L, Hgb 12.9 L, Hct 38.5 L, MCV 96.3 H, MCH 32.3 H, MCHC 33.5, RDW Std Deviation 45.0 H, RDW Coeff of Ean 12.7, Plt Count 108 L, MPV 11.1, Immature Gran % (Auto) 0.600, Neut % (Auto) 89.4 H, Lymph % (Auto) 4.9 L, [place] % (Auto) 4.9, Eos % (Auto) 0.0, Baso % (Auto) 0.2, Absolute Neuts (auto) 10.1 H, Absolute Lymphs (auto) 0.55 L, Nucleated RBC % 0, Differential Comment SEE COMMENT, Platelet Estimate MOD DEC, RBC Morphology N CHROM, Anisocytosis RARE, Macrocytosis RARE 02/12/22 20:00: Sodium 134 L, Potassium 4.2, Chloride 102, Carbon Dioxide 21.0, Anion Gap 11, BUN 27 H, Creatinine 1.76 H, Estim Creat Clear Calc 36.16, Est GFR (MDRD) Af Amer 49 L, Est GFR (MDRD) Non-Af 41 L, BUN/Creatinine Ratio 15.3, Glucose 108 H, Calcium 8.6, Total Bilirubin 0.70, AST 20, ALT 19, Alkaline Phosphatase 87, Troponin I High Sens < 3 L, Total Protein 7.2, Albumin 3.5, Globulin 3.7, Albumin/Globulin Ratio 0.9 02/12/22 22:07: Procalcitonin 0.28 H 02/13/22 04:25: WBC 9.1, RBC 3.37 L, Hgb 11.0 L, Hct 32.6 L, MCV 96.7 H, MCH 32.6 H, MCHC 33.7, RDW Std Deviation 44.3 H, RDW Coeff of Ean 12.7, Plt Count 93 L, MPV 11.6, Immature Gran % (Auto) 0.600, Neut % (Auto) 95.2 H, Lymph % (Auto) 1.8 L, [place] % (Auto) 2.3, Eos % (Auto) 0.0, Baso % (Auto) 0.1, Absolute Neuts (auto) 8.6 H, Absolute Lymphs (auto) 0.16 L, Nucleated RBC % 0, Macrocytosis 1+ 02/13/22 04:25: Sodium 138, Potassium 3.6, Chloride 107, Carbon Dioxide 25.0, Anion Gap 6, BUN 24 H, Creatinine 1.33 H, Estim Creat Clear Calc 47.86, Est GFR (MDRD) Af Amer 68, Est GFR (MDRD) Non-Af 56 L, BUN/Creatinine Ratio 18.0, Glucose 174 H, Calcium 7.9 L, Total Bilirubin 0.70, AST 16, ALT 17, Alkaline Phosphatase 70, Total Protein 6.0 L, Albumin 2.8 L, Globulin 3.2, A lbumin/Globulin Ratio 0.9 Micro: Microbiology 02/12/22 22:18 Mucosa - Nasopharyngeal Respiratory Panel (PCR) - Final Radiography Diagnostic Testing: Radiology Impression Tibia/Fibula X-Ray 02/12/22 20:25 IMPRESSION: No evidence of traumatic soft tissue or osseous injury. Peripheral atherosclerosis. Mild degenerative changes tibiotalar articulation. Foot X-Ray 02/12/22 20:50 IMPRESSION: No evidence of acute traumatic soft tissue shadows or osseous injury. Degenerative changes first metatarsal-phalangeal joint and tibiotalar joint. Peripheral atherosclerosis. Chest X-Ray 02/12/22 21:24 IMPRESSION: 1. Extensive postsurgical changes right lung apex and thorax. 2. New right pleural effusion. 3. Increased interstitial markings in the lung bases, right greater than left. While some of this is suspected represent postsurgical changes, on the right, additional pathologies suspected to: Interstitial edema, interstitial lung disease or atelectasis/scarring. Physical Exam Narrative Patient is short of breath, mild wheezing. Quit smoking about 7 years ago. Has bladder cancer for 25 years. Also separate lung cancer and had right upper lobectomy in December 2019. General: Alert, Oriented x3, Cooperative HEENT: Atraumatic, PERRLA, EOMI, Normocephalic Oral: No Gingival or Mucosal Lesions/ Ulcerations Neck: Supple, No JVD, Negative Carotid Bruits Lungs: Air entry diminished in bilateral lung bases. Dyspnea on exertion. Bilateral wheezing and rhonchi Cardiovascular: Regular rate, Regular Rhythm, Normal S1, Normal S2, No murmurs Abdomen: Bowel Sounds Present, Soft, Non Tender, Non-Distended : No renal angle tenderness. No suprapubic tenderness. Extremities: No edema, Capillary Refill Less than 3 Seconds Skin: Chronic edematous skin over back, lymphedematous. No open ulcer. Musculoskeletal: Mild tenderness in right foot on lateral side. ROM restricted in right ankle due to pain. Muscle strength 4/5. Joints of lower extremities. Neurological: Cranial nerves II-XII grossly intact, DTR 2+/4 and symmetrical. Psych/Mental Status: Flat affect. Assessment & Plan Assessment/Plan (1) Acute exacerbation of chronic obstructive pulmonary disease: PLAN: This 71-year-old question gentleman was admitted for generalized weakness, loss of appetite acute on chronic got worse on day of admission. His legs felt weaker, gave up and he fell on the ground injuring his left foot and ankle. Patient also felt shortness of breath on exertion #1. Debility due to generalized weakness, fall with right ankle sprain: Admitted to [facility] floor. On DuoNeb, IV Solu-Medrol, incentive spirometry. Patient has a right lower extremity Oziel wrap. Tibia-fibula and foot x-ray did not show any evidence of acute traumatic soft tissue or osseous injury. PT OT. Right leg Oziel wrap. Respiratory panel negative. #2. Acute kidney injury on Chronic Kidney Disease Stage II: Admission BUN/Cr 27/1.76, baseline renal function 0.8-1.0. Admitting creatinine is more than 1.5 times than baseline therefore JIN. He has seen his creatinine getting better. #3. History of Pancoast tumor: Status post resection 12/2019, treated additionally with cisplatin and etoposide, following with [facility], encourage continued outpatient follow-up. #4. History of bladder cancer: Status post resection with Ailyn pouch, no radiation or chemotherapy, considered in remission. #5. Nonobstructive CAD: We will continue apixaban, statin, not on OZIEL inhibitor/ARB nor specifically beta-brenna therapy as on diltiazem regimen. #6. COPD asthma overlap syndrome: As mentioned above. #7. History VTE: History of PE, DVT, status post prior IVC filter placement prior to Pancoast tumor resection, continue patient home anticoagulation with apixaban. #8. PAF, history SVT: Noted perioperatively following Pancoast tumor resection, will continue patient home diltiazem regimen as well as apixaban. #9. PVD: Patient with PVD with chronic claudication, continue apixaban, statin, hypertensive regimen as noted. #10. Hypertension: Continue home regimen including diltiazem, Lasix with hold parameters as needed, PRN hydralazine. #11. Hyperlipidemia: Continue home statin therapy. #12. GERD: We will continue patient on PPI. #13. Chronic anemia, macrocytic, anemia of chronic/Fe deficiency anemia: Admission hemoglobin 12.9, prior baseline in 2019 was 8-9, continue to trend #14. EtOH Abuse: Patient notes routine consumption of 3-4 beers per day. Monitor on CIWA protocol, MVI, thiamine and folic acid. Patient notes intention of continued EtOH usage. Mild thrombocytopenia #15. CODE status: Patient MATHEUS is his who is and living will is potentially in place but patient is unsure. Full code Charges/Coding Visit Charges Inpatient E&M: 18168 Subs Hosp L2
[2022-02-13] MEDS: Iron Polysaccharide Complex 150 MG CAPSULE PO (08:08)
[2022-02-13] MEDS: Thiamine Hydrochloride 100 MG Tablet PO (08:08)
[2022-02-13] MEDS: Multivitamins,Ther W-Minerals Tablet 1 TABLET PO (08:08)
[2022-02-13] MEDS: Folic Acid 1 MG Tablet PO (08:08)
[2022-02-13] MEDS: Cyanocobalamin 500 MCG Tablet PO (08:09)
[2022-02-13] MEDS: Cholecalciferol (VIT D3) 25 MCG TABLET (1,000 UNITS) 50 MCG PO (10:31)
[2022-02-13] MEDS: APIXABAN 5 MG TABLET PO ×2 (10:31→21:58)
[2022-02-13] MEDS: dilTIAZem 60 MG Tablet PO ×2 (10:31→21:58)
--- NOTE | 2022-02-13 11:30 | CASEMGMT ---
JOSHUA MARTINO Assessment: Face to Face with pt for initial transition planning/care coordination assessment. JOSHUA MARTINO introduced self and role at [facility], pt voices understanding and consents to assessment. Pt is A/O x4 and answers all questions appropriately at this time. Pt lying in bed in no distres. Care providers, pharmacy, and demographics verified/updated. Admitting Dx: acute COPD exac, fall with R ankle sprain PCP:Racheal Specialists: Pt states he has the following specialists but is unsure of their names, pulm, blood specialist, cardio and nephro Preferred Pharmacy: [facility] Insurance: [place] [facility] [employer] Prescription Benefit: yes LW/HPOA: Pt states he has a LW/DPOA and his DPOA is his . He is aware this is not on file at [facility] and he may bring in to be scanned into his chart. LNOK: Kira Marx, ; Yvette Swann, dtr Living Arrangements: Pt lives with in a single story house with 2 steps to enter from the outside with a rail and 3 steps through the garage with a grab bar. 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 Pt reports he was I in ADL's prior to hospitalization but was barely able d/t decreased strength in his legs. Transportation: Pt drives self and denies concerns with transportation. DME/HHC/SNF: Pt has a standard walker as well as a FWW. He also has a nebulizer. Pt has had [facility] HHC in the past and denies SNF stays. Pt states he would like to go home at dc but has not been up. He states the last time he has been up, it was difficult. Therapy has not yet worked with pt. Discussed HHC therapy options as well as outpt and SNF stay. Will discuss again when pt sees how well he does. 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 Pt states no further concerns/needs. CM to follow. Advised pt to ask CM if any further question/concerns/needs arise, voices understanding. Pt Goal: Home Plan: TBD
--- NOTE | 2022-02-13 15:08 | CASEMGMT ---
Addendum entered by Ana Rogers 02/13/22 15:31: Spoke with therapy who states pt would be appropriate for [facility] therapy. Original Note: JOSHUA MARTINO in to pt room after therapy, pt sitting up in chair. Pt states he feels stronger today and feels he did ok with therapy. He states he does not want to go to SNF. Asked if his would be able to assist him at home and he states he is not sure and to call her. Patient was provided a list of HHC providers including quality and resource use data and consistent with the patient?s preferred geographic region, medical needs, and insurance network. JOSHUA MARTINO to follow. TC to pt , she states she can assist pt at home if he needs it. Discussed HHC and that pt was provided a list. She states pt has had in the past but does not belive it was through [facility]. She will be in later to discuss with patient. She did also ask about outpatient therapy. JOSHUA MARTINO to check back in with pt tomorrow.
[2022-02-13] MEDS: Atorvastatin Calcium 20 MG Tablet PO (21:58)
[2022-02-14] VITALS (9 sets, daily range): BP systolic 109–126; BP diastolic 54–73; PULSE 66–152; RESP 16–18; TEMP 36.5–36.8; O2SAT 93–97
[2022-02-14] MEDS: Ipratropium/Albuterol Sulfate 3 ML AMPUL.NEB INHALATION (07:11)
--- NOTE | 2022-02-14 07:33 | PCM.PN.HOSP ---
Objective Data Objective Data Vital Signs: Vital Signs Temp Pulse Resp BP Pulse Ox 97.7 F L 88 18 126/71 H 93 02/14/22 06:00 02/14/22 06:00 02/14/22 06:00 02/14/22 06:00 02/14/22 06:00 Oxygen Flow Rate (L/min) 2 Oxygen Delivery Method Room Air Weight: 203 lb 14.841 oz Body Mass Index (BMI) 31.1 Intake & Output: Intake and Output for Last 24 Hours 02/12/22 02/13/22 02/14/22 23:59 23:59 23:59 Intake Total 1000 / 1000 1000 / 1000 Output Total 300 / 300 Balance 1000 / 1000 700 / 700 Lab / Micro Data Result Diagrams: 02/13/22 04:25 02/13/22 04:25 Micro: Microbiology 02/12/22 22:18 Mucosa - Nasopharyngeal Respiratory Panel (PCR) - Final Physical Exam Narrative Patient is short of breath, mild wheezing. Quit smoking about 7 years ago. Has bladder cancer for 25 years. Also separate lung cancer and had right upper lobectomy in December 2019. General: Alert, Oriented x3, Cooperative HEENT: Atraumatic, PERRLA, EOMI, Normocephalic Oral: No Gingival or Mucosal Lesions/ Ulcerations Neck: Supple, No JVD, Negative Carotid Bruits Lungs: Air entry diminished in bilateral lung bases. Dyspnea on exertion. Bilateral wheezing and rhonchi Cardiovascular: Regular rate, Regular Rhythm, Normal S1, Normal S2, No murmurs Abdomen: Bowel Sounds Present, Soft, Non Tender, Non-Distended : No renal angle tenderness. No suprapubic tenderness. Extremities: No edema, Capillary Refill Less than 3 Seconds Skin: Chronic edematous skin over back, lymphedematous. No open ulcer. Musculoskeletal: Mild tenderness in right foot on lateral side. ROM restricted in right ankle due to pain. Muscle strength 4/5. Joints of lower extremities. Neurological: Cranial nerves II-XII grossly intact, DTR 2+/4 and symmetrical. Psych/Mental Status: Flat affect. Assessment & Plan Assessment/Plan (1) Acute exacerbation of chronic obstructive pulmonary disease: PLAN: This 71-year-old question gentleman was admitted for generalized weakness, loss of appetite acute on chronic got worse on day of admission. His legs felt weaker, gave up and he fell on the ground injuring his left foot and ankle. Patient also felt shortness of breath on exertion #1. Debility due to generalized weakness, fall with right ankle sprain: Admitted to [facility]. On DuoNeb, IV Solu-Medrol, incentive spirometry. Patient has a right lower extremity Oziel wrap. Tibia-fibula and foot x-ray did not show any evidence of acute traumatic soft tissue or osseous injury. PT OT. Right leg Oziel wrap. Respiratory panel negative. 02/14: Physical therapist note reviewed. Needs more assessment and gait training. I think patient can go home with home health therapy #2. Acute kidney injury on Chronic Kidney Disease Stage II: Admission BUN/Cr 27/1.76, baseline renal function 0.8-1.0. Admitting creatinine is more than 1.5 times than baseline therefore JIN. He has seen his creatinine getting better. 02/14: Creatinine is 1.3. BUN 24. Improvement therefore further supports diagnosis of JIN. #3. History of Pancoast tumor: Status post resection 12/2019, treated additionally with cisplatin and etoposide, following with [facility], encourage continued outpatient follow-up. 02/14: Chest x-ray images reviewed and shows right small pleural effusion. Patient has history of NSCLC and had neoadjuvant chemoradiation prior to surgery in December 2019. Patient follows Dr. Marquez. I talked to the IR Dr. Maldonado and is scheduled for diagnostic thoracocentesis tomorrow. Eliquis on hold. Discussed with Dr. Jacinto Marquez. And he said patient had last CT chest on 10/[address] Ramirez in [place]. At that time he also had right sided small loculated effusion, 2 solid nodules in right lung stable from previous CT scan. No evidence of hilar adenopathy. #4. History of bladder cancer: Status post resection with Ailyn pouch, no radiation or chemotherapy, considered in remission. #5. Nonobstructive CAD:continue apixaban, statin, not on OZIEL inhibitor/ARB nor specifically beta-brenna therapy as on diltiazem regimen. #6. COPD asthma overlap syndrome: As mentioned above. #7. History VTE: History of PE, DVT, status post prior IVC filter placement prior to Pancoast tumor resection, 02/14: Hold Eliquis. #8. PAF, history SVT: Noted perioperatively following Pancoast tumor resection, will continue patient home diltiazem regimen as well as apixaban. #9. PVD: Patient with PVD with chronic claudication, continue apixaban, statin, hypertensive regimen as noted. As per Dr. Marquez, he has seen some vascular surgeon in the past. #10. Hypertension: Continue home regimen including diltiazem, Lasix with hold parameters as needed, PRN hydralazine. #11. Hyperlipidemia: Continue home statin therapy. #12. GERD: We will continue patient on PPI. #13. Chronic anemia, macrocytic, anemia of chronic/Fe deficiency anemia: Admission hemoglobin 12.9, prior baseline in 2019 was 8-9, continue to trend #14. EtOH Abuse: Patient notes routine consumption of 3-4 beers per day. Monitor on CIWA protocol, MVI, thiamine and folic acid. Patient notes intention of continued EtOH usage. Mild thrombocytopenia Discussed with Dr. Marquez and he said patient has history of chronic alcohol use for long time and still drinks 3-4 beers daily 12 months. He has history of alcoholic neuropathy. #15. CODE status: Patient MATHEUS is his who is and living will is potentially in place but patient is unsure. Full code Charges/Coding Visit Charges Inpatient E&M: 95970 Subs Hosp L2
[2022-02-14] MEDS: Thiamine Hydrochloride 100 MG Tablet PO (07:57)
[2022-02-14] MEDS: Cyanocobalamin 500 MCG Tablet PO (07:57)
[2022-02-14] MEDS: Multivitamins,Ther W-Minerals Tablet 1 TABLET PO (07:57)
[2022-02-14] MEDS: predniSONE 20 MG Tablet 40 MG PO (07:57)
[2022-02-14] MEDS: Folic Acid 1 MG Tablet PO (07:57)
[2022-02-14] MEDS: Iron Polysaccharide Complex 150 MG CAPSULE PO (07:58)
[2022-02-14] MEDS: Acetaminophen 325 MG Tablet 650 MG PO (08:00)
[2022-02-14] MEDS: dilTIAZem 60 MG Tablet PO ×2 (10:03→22:40)
[2022-02-14] MEDS: Pantoprazole Sodium 40 MG Tablet PO (10:03)
[2022-02-14] MEDS: Cholecalciferol (VIT D3) 25 MCG TABLET (1,000 UNITS) 50 MCG PO (10:04)
--- NOTE | 2022-02-14 12:28 | NURSING ---
Pt assisted to bed with Wilbur LEWIS, heart rate 150s, respiratory called for EKG, text sent to Dr. Latham to notify of increased heart rate.
--- NOTE | 2022-02-14 12:53 | EKG12_ITS ---
Test Reason : TACHY Blood Pressure : / mmHG Vent. Rate : 155 BPM Atrial Rate : 150 BPM P-R Int : 000 ms QRS Dur : 100 ms QT Int : 246 ms P-R-T Axes : 000 037 047 degrees QTc Int : 395 ms Supraventricular tachycardia Otherwise normal ECG No previous ECGs available Confirmed by PRASHANTH JORGENSEN, PAULETTE ([id number]), map editor LUIS MANUEL ASHLEY ([id number]) on 02/19/2022 1:15:00 PM Referred By: Confirmed By:PAULETTE ALFORD MD
[2022-02-14] MEDS: 0.9% Saline Lock 10 ML Syringe IV (13:07)
[2022-02-14] MEDS: Metoprolol Tartrate 5 MG/5 ML Vial IV (13:07)
--- NOTE | 2022-02-14 13:43 | CASEMGMT ---
Addendum entered by Ana Rogers 02/14/22 14:01: JOSHUA MARTINO in to pt room, pt and family aware that [facility] has accepted and they will see pt on Friday or Friday and will be in touch. Addendum entered by Ana Rogers 02/14/22 13:56: Received tc back from [facility], able to accept pt for SOC on Friday or Friday. Original Note: JOSHUA MARTINO in to pt room. Pt nurse, and dtr present during discussion. Pt states she has spoke with pt son and they would like pt to go to [facility]. She states they have had HHC in the past and it was limited d/t lack of equipment in the home. Asked if pt is able to go out and about and strong enough to get to [facility] at this time. Pt did not think so. They then agreed to [facility] for s/t with a goal of outpt therapy. Pt/ first choice was [facility] followed by [facility]. TC to [facility] at [facility], she will review and call JOSHUA MARTINO back.
[2022-02-14] MEDS: Metoprolol Tartrate 25 MG Tablet PO (14:42)
[2022-02-14] MEDS: Atorvastatin Calcium 20 MG Tablet PO (22:40)
[2022-02-15 01:39] VITALS: BP 122/93; PULSE 75; RESP 16; TEMP 36.4; O2SAT 97
[2022-02-15 06:19] LABS: Absolute Lymphocyte Count 0.47 X10^3/uL (0.83-4.51); Absolute Neutrophil Count 9.1 X10^3/uL (2.0-7.7); Basophil# 0.01 X10^3/uL; Basophil% 0.1 % (0-1); Hematocrit 36.8 % (40-54); Hemoglobin 12.1 g/dL (13.0-16.5); Lymphocyte # 0.47 X10^3/ul (0.83-4.51); Lymphocyte % 4.5 % (19-41); Mean Corp Hgb Conc 32.9 g/dL (32-36); Mean Corpuscular Hgb 32.1 pg (27.0-32.0); Mean Corpuscular Volume 97.6 fL (80-94); Mean Platelet Vol. 11.7 fl (6.2-12.0); Monocyte# 0.71 X10^3/uL; Monocyte% 6.8 % (0-10); NRBC Flagged by Analyzer 0 % (0-5); Neutrophil # 9.13 X10^3/uL (2.7-7.7); Neutrophil % 87.5 % (47-70); POSITIVE DIFFERENTIAL YES; Platelet Count 125 K/mm3 (150-450); RBC Distribution Width CV 13.2 % (11.6-14.6); RBC Distribution Width SD 46.7 fl (35.1-43.9); Red Blood Count 3.77 M/mm3 (4.6-6.2); White Blood Count 10.4 K/mm3 (4.4-11.0)
[2022-02-15 06:30] LABS: Differential Indicated SCAN CRITERIA MET
[2022-02-15 06:50] LABS: AST(SGOT) 21 U/L (15-37); Alanine Aminotransfer ALT/SGPT 24 U/L (16-61); Albumin, Serum 3.2 g/dL (3.2-5.0); Alkaline Phosphatase 63 U/L (45-117); Anion Gap 8 (5-15); BUN 40 mg/dL (7-18); BUN/Creat Ratio 30.1 RATIO (10-20); Calcium,Total 8.8 mg/dL (8.5-10.1); Chloride 109 mmol/L (98-107); Creatinine, Serum 1.33 mg/dL (0.70-1.30); EST Glomerular Filtration Rate 56 mL/min (>60); Est Glom Filt Rate - Afr Amer 68 mL/min (>60); Estimated Creatinine Clearance 47.86 ml/min; Globulin 3.3 g/dL (2.2-4.2); Glucose 97 mg/dL (74-106); LDH 136 U/L (87-241); Protein, Total 6.5 g/dL (6.4-8.2); Sodium Level 138 mmol/L (136-145)
[2022-02-15 07:17] LABS: Differential Comment SCANNED
[2022-02-15 08:05] VITALS: BP 133/70; PULSE 79; RESP 20; TEMP 36.8; O2SAT 96
[2022-02-15] MEDS: Cyanocobalamin 500 MCG Tablet PO (08:07)
[2022-02-15] MEDS: Iron Polysaccharide Complex 150 MG CAPSULE PO (08:07)
[2022-02-15] MEDS: dilTIAZem 60 MG Tablet PO (08:07)
[2022-02-15] MEDS: Multivitamins,Ther W-Minerals Tablet 1 TABLET PO (08:07)
[2022-02-15] MEDS: Thiamine Hydrochloride 100 MG Tablet PO (08:07)
[2022-02-15] MEDS: Cholecalciferol (VIT D3) 25 MCG TABLET (1,000 UNITS) 50 MCG PO (08:07)
[2022-02-15] MEDS: predniSONE 20 MG Tablet 40 MG PO (08:07)
[2022-02-15] MEDS: Folic Acid 1 MG Tablet PO (08:09)
--- NOTE | 2022-02-15 08:23 | US_ITS ---
STUDY: SUPERFICIAL ULTRASOUND - RIGHT PLEURAL SPACE. REASON FOR EXAM: Male, 71 years old. Right pleural effusion -- H/o NSCLC s/p RU Lobectomy TECHNIQUE: A superficial ultrasound was performed with real-time and static andrade-scale imaging. COMPARISON: None. FINDINGS: Imaging of the right pleural cavity was obtained. There is no evidence of pleural effusion. US/Chest IMPRESSION: No evidence of pleural effusion. Electronically Signed: Miguel Tam MD at 14:20 EDT ,
[2022-02-15 09:29] VITALS: O2SAT 96
--- NOTE | 2022-02-15 10:01 | PCM.DC ---
Discharge Instructions Diet Discharge Diet: Low fat / Low cholesterol and 2000 mg Sodium Diet Activity Discharge Activity: Return to Normal Activity and May Not Drive Dressing / Incision Call your doctor if you observe: Fever of 101 or Higher, Coldness, Increased Pain, Numbness or Tingling, Change in Color, Inability to urinate, Inability to have a bowel movement, Shortness of breath, Dizziness, Fainting spells, Swelling in the ankles, Chest pain, Prolonged hiccupping, Increased palpitations (irregular heartbeat), Calf discomfort and Uncontrolled pain Follow Up Care Test Results: Test results from this visit will be discussed in further detail at your follow-up appointment, if applicable. Discharge Plan Admission Admit Date/Time: 02/12/22 22:02 Primary Reason for Your Visit: Pneumonia Attending Provider: Yg Latham Primary Care Provider: Hasmukh Springer Consulting Providers: Jyoti Cowan Instructions Patient Instructions: Thoracentesis Dc Additional Instructions / Restrictions: Psyllium, Metamucil available [id number]. Discharge Orders/Prescriptions Prescriptions: New Daily Fiber (psyllium-aspart) 3 gram Powder In Packet 1 packet PO DAILY PRN PRN (Reason: Constipation) Qty: 0 RF: 0 dextromethorphan-guaifenesin [Mucinex DM] 60-1,200 mg tablet extended release 12 hr 1 tab PO Q12H Qty: 14 RF: 0 prednisone 10 mg tablets,dose pack See Taper mg PO DAILY Qty: 30 RF: 0 Continued folic acid 800 mcg tablet 0.8 mg PO DAILY RF: 0 cyanocobalamin (vitamin B-12) 500 MCG tablet 1,000 mcg PO DAILY@0800 RF: 0 omeprazole 20 MG capsule 40 mg PO QODAY RF: 0 furosemide 20 MG tablet 40 mg PO DAILY RF: 0 diltiazem HCl 60 MG tablet 60 mg PO BID RF: 0 atorvastatin 20 MG tablet 20 mg PO QHS Qty: 30 RF: 0 polysaccharide iron complex 150 MG capsule 150 mg PO DAILYCM Qty: 30 RF: 0 thiamine HCl (vitamin B1) 100 MG tablet 100 mg PO DAILYCM Qty: 30 RF: 0 albuterol sulfate 1 INHALER inhaler 2 puff inhalation Q4H PRN PRN (Reason: SOB &/OR WHEEZING) Qty: 1 RF: 0 sulfamethoxazole-trimethoprim 800-160 mg tablet 1 tab PO DAILY RF: 0 Trelegy Ellipta 100-62.5-25 mcg blister with device 1 ea INHALATION DAILY RF: 0 magnesium 200 mg Tablet 400 mg PO DAILY RF: 0 cholecalciferol (vitamin D3) 125 mcg (5,000 unit) Tablet 125 mcg PO DAILY RF: 0 Held apixaban 5 MG tablet 5 mg PO BID Qty: 60 RF: 0 Hold Instructions: Start from tomorrow evening dose, 02/16/2022 Referrals / Follow Up: Hasmukh Springer MD [Primary Care Provider] - Within 2 Weeks Jacinto Marquez DO [STAFF PHYSICIAN] - Within 2 Weeks (Follow-up pleural fluid cytology.) Disposition Disposition (needs filled in before D/C Order can be placed): Home Health Service
--- NOTE | 2022-02-15 11:05 | CASEMGMT ---
JOSHUA MARTINO in to pt room, pt sitting up in chair. Discussed Palliative Care services with pt, pt denied need at this time but was open to taking brochure. Discussed that HHC will be in touch with him and he denies any further needs. He states he may ask JOSHUA MARTINO to speak with his when she arrives. Provided pt with JOSHUA MARTINO card.
--- NOTE | 2022-02-15 13:07 | DS.PCM_ITS ---
Providers Date of Admission: 02/12/22 Date of Discharge: 02/15/22 Primary Care Physician: Dr. Hasmukh Springer MD Reason For Visit: ACUTE COPD EXACERBATION, FALL W/ R ANKLE SPRAIN Diagnosis Discharge Diagnosis (1) Acute exacerbation of chronic obstructive pulmonary disease: Status: Chronic Code(s): J44.1 - Chronic obstructive pulmonary disease with (acute) exacerbation Medications at Discharge Home Medications cyanocobalamin (vitamin B-12) 1,000 mcg PO DAILY@0800 10/09/19 diltiazem HCl 60 mg PO BID 10/09/19 furosemide 40 mg PO DAILY 10/09/19 omeprazole 40 mg PO QODAY 10/09/19 albuterol sulfate 2 puff INHALATION Q4H PRN PRN #1 inhaler 02/10/20 apixaban 5 mg PO BID #60 tab 02/10/20 atorvastatin 20 mg PO QHS #30 tab 02/10/20 polysaccharide iron complex 150 mg PO DAILYCM #30 cap 02/10/20 thiamine HCl (vitamin B1) 100 mg PO DAILYCM #30 tab 02/10/20 folic acid 800 mcg tablet 0.8 mg PO DAILY 04/19/20 Trelegy Ellipta 1 ea INHALATION DAILY 02/12/22 sulfamethoxazole-trimethoprim 1 tab PO DAILY 02/12/22 cholecalciferol (vitamin D3) 125 mcg PO DAILY 02/13/22 magnesium 400 mg PO DAILY 02/13/22 dextromethorphan-guaifenesin [Mucinex DM] 1 tab PO Q12H #14 tab 02/15/22 prednisone See Taper PO DAILY #30 tab 02/15/22 psyllium husk (aspartame) [Daily Fiber (psyllium-aspart)] 1 packet PO DAILY PRN PRN #0 ea 02/15/22 Hospital Course Summary of Care Provided Hospital Course: This 71-year-old question gentleman was admitted for generalized weakness, loss of appetite acute on chronic got worse on day of admission. His legs felt weaker, gave up and he fell on the ground injuring his left foot and ankle. Patient also felt shortness of breath on exertion #1. Debility due to generalized weakness, fall with right ankle sprain: [facility]. On DuoNeb, IV Solu-Medrol, incentive spirometry. Patient has a right lower extremity Oziel wrap. Tibia-fibula and foot x-ray did not show any evidence of acute traumatic soft tissue or osseous injury. PT OT. Right leg Oziel wrap. Respiratory panel negative. 02/14: Physical therapist note reviewed. Needs more assessment and gait training. I think patient can go home with home health therapy 02/15: Patient agreeable for discharge home with home health after thoracocentesis. #2. Acute kidney injury on Chronic Kidney Disease Stage II: Admission BUN/Cr 27/1.76, baseline renal function 0.8-1.0. Admitting creatinine is more than 1.5 times than baseline therefore JIN. He has seen his creatinine getting better. 02/14: Creatinine is 1.3. BUN 24. Improvement therefore further supports diagnosis of JIN. 02/15: Creatinine on baseline. #3. COPD exacerbation, present on admission with history of history of Pancoast tumor: Status post resection 12/2019, treated additionally with cisplatin and etoposide, following with [facility], encourage continued outpatient follow-up. 02/14: Chest x-ray images reviewed and shows right small pleural effusion. Patient has history of NSCLC and had neoadjuvant chemoradiation prior to surgery in December 2019. Patient follows Dr. Marquez. I talked to the IR Dr. Maldonado and is scheduled for diagnostic thoracocentesis tomorrow. Geri on hold. Discussed with Dr. Jacinto Marquez. And he said patient had last CT chest on 10/[address] Ramirez in [place]. At that time he also had right sided small loculated effusion, 2 solid nodules in right lung stable from previous CT scan. No evidence of hilar adenopathy. 02/15: Patient was taken for thoracocentesis but on ultrasound not enough pleural fluid found therefore Eliquis resumed. Discussed with the nursing staff. Discussed with Dr. Marquez on 02/14 as mentioned above. Patient is discharged on tapering dose of prednisone. Patient has Trelegy inhaler and albuterol inhaler at home. Patient already on Bactrim prophylaxis. #4. History of bladder cancer: Status post resection with Ailyn pouch, no radiation or chemotherapy, considered in remission. #5. Nonobstructive CAD:continue apixaban, statin, not on OZIEL inhibitor/ARB nor specifically beta-brenna therapy as on diltiazem regimen. #6. COPD asthma overlap syndrome: As mentioned above. #7. History VTE: History of PE, DVT, status post prior IVC filter placement prior to Pancoast tumor resection, 02/14: Hold Eliquis. 02/15: Patient can resume Eliquis from tomorrow night after about 36 hours of thoracocentesis #8. PAF, history SVT: Noted perioperatively following Pancoast tumor resection, will continue patient home diltiazem regimen as well as apixaban. #9. PVD: Patient with PVD with chronic claudication, continue apixaban, statin, hypertensive regimen as noted. As per Dr. Marquez, he has seen some vascular surgeon in the past. #10. Hypertension: Continue home regimen including diltiazem, Lasix with hold parameters as needed, PRN hydralazine. #11. Hyperlipidemia: Continue home statin therapy. #12. GERD: We will continue patient on PPI. #13. Chronic anemia, macrocytic, anemia of chronic/Fe deficiency anemia: Admission hemoglobin 12.9, prior baseline in 2019 was 8-9, continue to trend #14. EtOH Abuse: Patient notes routine consumption of 3-4 beers per day. Monitor on CIWA protocol, MVI, thiamine and folic acid. Patient notes intention of continued EtOH usage. Mild thrombocytopenia Discussed with Dr. Marquez and he said patient has history of chronic alcohol use for long time and still drinks 3-4 beers daily 12 months. He has history of alcoholic neuropathy. Patient did not had alcohol withdrawal symptoms including shaking tremors or hallucinations. Advised quitting alcohol. Patient on thiamine and folic acid at home. #15. CODE status: Patient MATHEUS is his who is and living will is potentially in place but patient is unsure. Full code Discharge medication reconciliation done. Discharge follow-up instructions completed. Discharge process discussed with the patient and all questions were answered to patient's satisfaction. Prescription sent to the patient's preferred pharmacy. Total time spent, exact 35 minutes on discharge meds reconciliation, examination, coordination of care with nurses and ancillary staff, review of imaging and blood test and discussion with the patient on follow-up i nstructions. Physical Exam Narrative Patient has chronic shortness of breath on exertion but this is stable on baseline. Mild wheezing. Quit smoking about 7 years ago. Has bladder cancer for 25 years. Also separate lung cancer and had right upper lobectomy in December 2019. General: Alert, Oriented x3, Cooperative HEENT: Atraumatic, PERRLA, EOMI, Normocephalic Oral: No Gingival or Mucosal Lesions/ Ulcerations Neck: Supple, No JVD, Negative Carotid Bruits Lungs: Air entry diminished in bilateral lung bases. Mild bilateral expiratory rhonchi. Cardiovascular: Regular rate, Regular Rhythm, Normal S1, Normal S2, No murmurs Abdomen: Bowel Sounds Present, Soft, Non Tender, Non-Distended : No renal angle tenderness. No suprapubic tenderness. Extremities: No edema, Capillary Refill Less than 3 Seconds Skin: Chronic edematous skin over back, lymphedematous. No open ulcer. Musculoskeletal: Mild tenderness in right foot on lateral side. ROM restricted in right ankle due to pain. Muscle strength 4/5. Joints of lower extremities. Neurological: Cranial nerves II-XII grossly intact, DTR 2+/4 and symmetrical. Psych/Mental Status: Flat affect. Weight / BMI Weight Weight: 203 lb 4.259 oz Body Mass Index (BMI) 31.1 ABG / Lab / Microbiology Data Result Diagrams: 02/15/22 05:27 02/15/22 05:27 Laboratory: Laboratory Results - last 24 hr 02/15/22 05:27: Sodium 138, Potassium 4.0, Chloride 109 H, Carbon Dioxide 21.0, Anion Gap 8, BUN 40 H, Creatinine 1.33 H, Estim Creat Clear Calc 47.86, Est GFR (MDRD) Af Amer 68, Est GFR (MDRD) Non-Af 56 L, BUN/Creatinine Ratio 30.1 H, Glucose 97, Calcium 8.8, Total Bilirubin 0.30, AST 21, ALT 24, Alkaline Phosphatase 63, Lactate Dehydrogenase 136, Total Protein 6.5, Albumin 3.2, Globulin 3.3, Albumin/Globulin Ratio 1.0 02/15/22 05:27: WBC 10.4, RBC 3.77 L, Hgb 12.1 L, Hct 36.8 L, MCV 97.6 H, MCH 32.1 H, MCHC 32.9, RDW Std Deviation 46.7 H, RDW Coeff of Ean 13.2, Plt Count 12 5 L, MPV 11.7, Immature Gran % (Auto) 1.100 H, Neut % (Auto) 87.5 H, Lymph % (Auto) 4.5 L, Howell % (Auto) 6.8, Eos % (Auto) 0.0, Baso % (Auto) 0.1, Absolute Neuts (auto) 9.1 H, Absolute Lymphs (auto) 0.47 L, Nucleated RBC % 0, Differential Comment SCANNED Microbiology: Microbiology 02/12/22 22:18 Mucosa - Nasopharyngeal Respiratory Panel (PCR) - Final D/C Instructions Discharge Diet: Low fat / Low cholesterol and 2000 mg Sodium Diet Call your doctor if you observe: Fever of 101 or Higher, Coldness, Increased Pain, Numbness or Tingling, Change in Color, Inability to urinate, Inability to have a bowel movement, Shortness of breath, Dizziness, Fainting spells, Swelling in the ankles, Chest pain, Prolonged hiccupping, Increased palpitations (irregular heartbeat), Calf discomfort and Uncontrolled pain Meaningful Use Info Meaningful Use Diagnoses (Choose all that apply): None applicable Discharge Plan Admission Admit Date/Time: 02/12/22 22:02 Primary Reason for Your Visit: Pneumonia Attending Provider: Yg Latham Primary Care Provider: Hasmukh Springer Consulting Providers: Jyoti Cowan Instructions Patient Instructions: Thoracentesis Dc Additional Instructions / Restrictions: Psyllium, Metamucil available [id number]. Discharge Orders/Prescriptions Prescriptions: New Daily Fiber (psyllium-aspart) 3 gram Powder In Packet 1 packet PO DAILY PRN PRN (Reason: Constipation) Qty: 0 RF: 0 dextromethorphan-guaifenesin [Mucinex DM] 60-1,200 mg tablet extended release 12 hr 1 tab PO Q12H Qty: 14 RF: 0 prednisone 10 mg tablets,dose pack See Taper mg PO DAILY Qty: 30 RF: 0 Continued folic acid 800 mcg tablet 0.8 mg PO DAILY RF: 0 cyanocobalamin (vitamin B-12) 500 MCG tablet 1,000 mcg PO DAILY@0800 RF: 0 omeprazole 20 MG capsule 40 mg PO QODAY RF: 0 furosemide 20 MG tablet 40 mg PO DAILY RF: 0 diltiazem HCl 60 MG tablet 60 mg PO BID RF: 0 atorvastatin 20 MG tablet 20 mg PO QHS Qty: 30 RF: 0 polysaccharide iron complex 150 MG capsule 150 mg PO DAILYCM Qty: 30 RF: 0 thiamine HCl (vitamin B1) 100 MG tablet 100 mg PO DAILYCM Qty: 30 RF: 0 albuterol sulfate 1 INHALER inhaler 2 puff inhalation Q4H PRN PRN (Reason: SOB &/OR WHEEZING) Qty: 1 RF: 0 apixaban 5 MG tablet 5 mg PO BID Qty: 60 RF: 0 Hold Instructions: Start from tomorrow evening dose, 02/16/2022 sulfamethoxazole-trimethoprim 800-160 mg tablet 1 tab PO DAILY RF: 0 Trelegy Ellipta 100-62.5-25 mcg blister with device 1 ea INHALATION DAILY RF: 0 magnesium 200 mg Tablet 400 mg PO DAILY RF: 0 cholecalciferol (vitamin D3) 125 mcg (5,000 unit) Tablet 125 mcg PO DAILY RF: 0 Referrals / Follow Up: Hasmukh Springer MD [Primary Care Provider] - Within 2 Weeks Jacinto Marquez DO [STAFF PHYSICIAN] - Within 2 Weeks (Follow-up pleural fluid cytology.) Disposition Disposition (needs filled in before D/C Order can be placed): Home Health S ervice Charges/Coding Visit Charges Inpatient E&M: 40663 Disch Hosp
--- NOTE | 2022-02-15 14:01 | NURSING ---
According to radiology, there was not enough fluid to tap so there was no throacentesis done. Dr. Latham updated.
[2022-02-15 14:06] VITALS: BP 116/65; PULSE 80; RESP 20; TEMP 36.7; O2SAT 95
[2022-02-15] MEDS: APIXABAN 5 MG TABLET PO (15:43)
== END 2022-02-15 16:15 | disposition home health service (06) | DRG 191 ==
LOC: ED 21:44 → MS3 22:12
PROVIDERS: Admitting Provider Family Medicine; Emergency Provider Emergency Medicine; PCP Family Medicine; Visit Provider Internal Medicine
DX: J44.1 Chronic obstructive pulmonary disease with (acute) exacerbation (principal); N17.9 Acute kidney failure, unspecified; J90 Pleural effusion, not elsewhere classified; D69.6 Thrombocytopenia, unspecified; G62.1 Alcoholic polyneuropathy; D63.8 Anemia in other chronic diseases classified elsewhere; E86.0 Dehydration; I48.0 Paroxysmal atrial fibrillation; I73.9 Peripheral vascular disease, unspecified; D50.9 Iron deficiency anemia, unspecified; N18.2 Chronic kidney disease, stage 2 (mild); I25.10 Atherosclerotic heart disease of native coronary artery without angina pectoris; K21.9 Gastro-esophageal reflux disease without esophagitis; E78.5 Hyperlipidemia, unspecified; I12.9 Hypertensive chronic kidney disease with stage 1 through stage 4 chronic kidney disease, or unspecified chronic kidney disease; S93.401A Sprain of unspecified ligament of right ankle, initial encounter; W19.XXXA Unspecified fall, initial encounter; F10.10 Alcohol abuse, uncomplicated; Q27.8 Other specified congenital malformations of peripheral vascular system; R62.7 Adult failure to thrive; E66.9 Obesity, unspecified; Z85.51 Personal history of malignant neoplasm of bladder; Z79.01 Long term (current) use of anticoagulants; Z79.899 Other long term (current) drug therapy; Z86.711 Personal history of pulmonary embolism; Z85.118 Personal history of other malignant neoplasm of bronchus and lung; Z86.718 Personal history of other venous thrombosis and embolism; Z87.891 Personal history of nicotine dependence; I49.1 Atrial premature depolarization; R53.81 Other malaise; Z90.2 Acquired absence of lung [part of]; Z68.31 Body mass index [BMI] 31.0-31.9, adult
CPT/HCPCS: 36415; 71045; 73590; 73630; 76604; 80053; 83615; 84145; 84156; 84484; 85025; 87070; 87205; 87633; 93005; 94640; 97116; 97162; 97166; 97530; 97535; 99251; 99285; J7030; A4216; G0463